=== PATIENT | male | born 1945 | race Caucasian/White ===

== ENCOUNTER 2018-07-12 14:02 | Inpatient (IN) | payer SELFPAY ==
--- NOTE | 2018-07-12 14:15 | C.PDOC ---
History Of Present Illness Patient is a 72 year old male, with a PMHx of HTN, HLD, diabetes, and hemorrhoids, who presents to the ED c/o CP and SOB for over the past 3 weeks. Patient describes the CP as a pressure and states that the SOB is worse with exertion. Pain is not tearing and non-pleuritic. Patient was seen at a previous urgent care for CP and hemorrhoids and his Plavix was discontinued given the hemorrhoids. Patient reports worsening SOB starting today prompting him to call EMS and was given 2 Lasix and 1 sublingual Nitro with mild improvement. He denies taking any Aspirin or Plavix today and was not given Aspirin by EMS. Time Seen by Provider: 07/12/18 14:10 Chief Complaint (Nursing): Shortness Of Breath History Per: Patient History/Exam Limitations: no limitations Onset/Duration Of Symptoms: Other (3 weeks) Current Symptoms Are (Timing): Still Present Quality: Pressure Associated Symptoms: Chest Pain Recent travel outside of the [place]: No Additional History Per: Patient Past Medical History Reviewed: Historical Data, Nursing Documentation, Vital Signs - Medical History PMH: No Chronic Diseases Surgical History: No Surg Hx Family History: States: No Known Family Hx Review Of Systems Constitutional: Negative for: Fever, Chills, Weakness Eyes: Negative for: Pain ENT: Negative for: Ear Pain, Ear Discharge Cardiovascular: Positive for: Chest Pain (chest pressure) Respiratory: Positive for: Shortness of Breath Gastrointestinal: Negative for: Nausea, Vomiting, Abdominal Pain Genitourinary: Negative for: Dysuria, Frequency, Incontinence Musculoskeletal: Negative for: Neck Pain, Shoulder Pain Skin: Negative for: Rash, Lesions, Jaundice Neurological: Negative for: Weakness, Numbness, Headache Physical Exam - Physical Exam Appears: Well, Non-toxic, No Acute Distress Skin: Warm, Dry Head: Normacephalic Eye(s): bilateral: Normal Inspection, PERRL, EOMI Nose: Normal Oral Mucosa: Moist Tongue: Normal Appearing Lips: Normal Appearing Teeth: Normal Dentition Throat: Normal, No Erythema, No Exudate Neck: Normal, Normal ROM (tachy), Trachea Midline, Supple, Other (No meningeal signs- negative kernig's and brudzinskis) Chest: Symmetrical Cardiovascular: Rhythm Regular, No Friction Rub, No Murmur, No JVD Respiratory: No Rales, No Rhonchi, No Wheezing, Other (mild cracles at basis bi laterally) Gastrointestinal/Abdominal: Soft, No Tenderness, No Distention Back: No CVA Tenderness, No Vertebral Tenderness Extremity: Bilateral: Normal Color And Temperature Pulses: Left Dorsalis Pedis: Normal, Right Dorsalis Pedis: Normal Neurological/Psych: Oriented x3, Normal Speech, Normal Cognition ED Course And Treatment - Laboratory Results Result Diagrams: 07/12/18 14:31 07/12/18 14:31 ECG: Interpreted By Me, Viewed By Me ECG Rhythm: Sinus Tachycardia Interpretation Of ECG: ST elevation leads 3 and avf with depressions in 1 and avl Rate From EC Medical Decision Making Medical Decision Making: Patient is a 72 year old male, with a PMHx of HTN, HLD, diabetes, and hemorrhoids, who presents to the ED c/o CP and SOB for over the past 3 weeks. Gianfranco hernandez describes the CP as a pressure and states that the SOB is worse with exertion. Pain is not tearing and non-pleuritic. STEMI on EKG, elevation in III and AvF, code HEART called. Plan: Labs Magnetic Resonance Technologist EKG CXR Aspirin 324mg PO Plavix 600mg PO Appreciate consultation w/ Dr. Abilio Archuleta: 600 of plavix and ASA at this time, no heparin and brilinta and pt to be sent to chemical lab supervisor Patient was transferred to the Magnetic Resonance Technologist in [place]. VSS, MAEW, GCS15 and protecting airway. Disposition - Disposition Disposition Time: 14:40 Condition: STABLE - Clinical Impression Clinical Impression: STEMI (ST elevation myocardial infarction) - Scribe Statement The provider has reviewed the documentation as recorded by the Giovana Velasco All medical record entries made by the Paulinaibhector were at my direction and personally dictated by me. I have reviewed the chart and agree that the record accurately reflects my personal performance of the history, physical exam, medical decision making, and the department course for this patient. I have also personally directed, reviewed, and agree with the discharge instructions and disposition.
[2018-07-12] MEDS ORDERED: Verapamil 2 ML ONE (14:29)
[2018-07-12] MEDS ORDERED: Heparin 0 ML IV ONE (14:30)
[2018-07-12] MEDS ORDERED: Lidocaine 2% MPF (5 ml) Inj ONE (14:30)
[2018-07-12] MEDS ORDERED: Nitroglycerin 50mg in D5W 50 MG/250 ML BOTTLE IV ONE (14:30)
[2018-07-12] MEDS ORDERED: Iodixanol 320 MG/ML 200 ML BOTTLE IV ONE (14:30)
[2018-07-12 14:37] LABS: BASO % 0.3 % (0.0-2.0); EOS # 0.1 K/uL (0.0-0.7); EOS % 0.6 % (0.0-4.0); LYMPH # 1.4 K/uL (1.0-4.3); LYMPH % 8.9 % (20.0-40.0); MEAN CELL VOLUME 66.8 fL (80.0-94.0); MEAN CORPUSCULAR HEMOGLOBIN 19.8 pg (27.0-31.0); MEAN CORPUSCULAR HGB CONC 29.7 g/dL (33.0-37.0); MEAN PLATELET VOLUME 7.9 fL (7.2-11.7); MONO # 0.7 K/uL (0.0-0.8); MONO % 4.3 % (0.0-10.0); NEUT # 13.6 K/uL (1.8-7.0); NEUT % 85.9 % (50.0-75.0); PLATELET COUNT 469 K/uL (130-400); RBC 4.37 Mil/uL (4.40-5.90); RED CELL DISTRIBUTION WIDTH 21.2 % (11.5-14.5); WHITE BLOOD COUNT 15.8 K/uL (4.8-10.8)
[2018-07-12 14:45] LABS: HEMOGLOBIN 8.7 g/dL (12.0-18.0)
[2018-07-12 14:46] LABS: INR 1.1; PARTIAL THROMBOPLASTIN TIME 28.6 SECONDS (21-34); PROTHROMBIN TIME 12.4 SECONDS (9.7-12.2)
[2018-07-12] MEDS ORDERED: Midazolam 2 MG/2 ML VIAL ONE ×2 (14:47→15:08)
[2018-07-12 14:50] LABS: ALB/GLOB RATIO 1.6 (1.0-2.1); ALBUMIN 4.7 g/dL (3.5-5.0); ALT/SGPT 15 U/L (21-72); AST/SGOT 26 U/L (17-59); BLOOD UREA NITROGEN 21 mg/dL (9-20); GFR NON-AFRICAN AMERICAN > 60
[2018-07-12] MEDS ORDERED: Iodixanol 320 MG/ML 100 ML BOTTLE IV ONE ×2 (15:09→16:15)
--- NOTE | 2018-07-12 15:18 | RAD ---
Date of service: 07/12/2018 PROCEDURE: CHEST RADIOGRAPH, 1 VIEW HISTORY: chest pain COMPARISON: None available. FINDINGS: LUNGS: The lungs are well inflated and clear. PLEURA: No pneumothorax or pleural effusion. CARDIOVASCULAR: There is mild cardiomegaly. No aortic atherosclerotic calcifications present. OSSEOUS STRUCTURES: Within normal limits for the patient's age. VISUALIZED UPPER ABDOMEN: Normal. OTHER FINDINGS: None. IMPRESSION: No active pulmonary disease.
[2018-07-12 15:31] LABS: LYMPHOCYTE 12 % (20-40); MONOCYTE 4 % (0-10); NEUTROPHIL 84 % (50-75); PLATELET ESTIMATE SLIGHTLY INCREASED (NORMAL); TOTAL CELLS COUNTED 100
[2018-07-12 15:32] LABS: ANISOCYTOSIS SLIGHT; BURR CELLS SLIGHT; HYPOCHROMIC SLIGHT; POIKILOCYTOSIS SLIGHT
[2018-07-12 15:33] LABS: OVALOCYTES SLIGHT; TARGET CELLS SLIGHT
--- NOTE | 2018-07-12 15:54 | CP.PCM.HP ---
<Bhavya Rivas - Last Filed: 07/12/18 18:53> History of Present Illness - History of Present Illness History of Present Illness: Bhavya Rivas PGY1 H&P for Dr. Pleitez Patient is a 72yo M with PMH HTN, HLD, DM, hemorrhoids who presents to ED with chest pain and shortness of breath. He reports symptoms began a couple of weeks ago, however worsened this morning. He rated the pain 8/10 on the left side of his chest. He denied radiation of the pain to the neck, arm, or R side. He de nied any nausea, but reported some sweating this morning. He denied any blurry vision or syncope. He reports taking his BP medicine at home this morning but has not taken his plavix for a few days due to hemorrhoids. Patient reports prior history of this pain a few years ago. SocH: tobacco history. denies etoh or recreational drug use FamH: no known Allergies: NKDA Meds: as per EMR PMD: Ward in [place] Present on Admission - Present on Admission Any Indicators Present on Admission: No Review of Systems - Review of Systems Review of Systems: 12 point ROS completed and negative other than what is stated in HPI. Past Patient History - Infectious Disease Hx of Infectious Diseases: None - Past Social History Smoking Status: Never Smoked - CARDIAC Hx Hypercholesterolemia: Yes Hx Hypertension: Yes - PULMONARY Hx Bronchitis: Yes - ENDOCRINE/METABOLIC Hx Diabetes Mellitus Type 2: Yes - MUSCULOSKELETAL/RHEUMATOLOGICAL Other/Comment: Spondylosis - PSYCHIATRIC Hx Substance Use: No - SURGICAL HISTORY Hx Surgeries: No - ANESTHESIA Hx Anesthesia: No Meds Allergies/Adverse Reactions: Allergies Allergy/AdvReac Type Severity Reaction Status Date / Time No Known Allergies Allergy Unverified 07/12/18 14:14 Physical Exam - Constitutional Appears: Well, No Acute Distress - Head Exam Head Exam: ATRAUMATIC, NORMOCEPHALIC - Eye Exam Eye Exam: EOMI, Normal appearance, PERRL Pupil Exam: NORMAL ACCOMODATION - ENT Exam ENT Exam: Mucous Membranes Moist - Neck Exam Neck exam: Positive for: Normal Inspection - Respiratory Exam Respiratory Exam: Clear to Auscultation Bilateral, NORMAL BREATHING PATTERN. absent: Rales, Rhonchi, Wheezes - Cardiovascular Exam Cardiovascular Exam: REGULAR RHYTHM, +S1. absent: Gallop, Rubs, Systolic Murmur - GI/Abdominal Exam GI & Abdominal Exam: Normal Bowel Sounds, Soft. absent: Distended, Tenderness - Extremities Exam Extremities exam: Positive for: pedal edema, pedal pulses present - Neurological Exam Neurological exam: Alert, CN II-XII Intact, Normal Gait, Oriented x3, Reflexes Normal - Psychiatric Exam Psychiatric exam: Normal Affect, Normal Mood - Skin Skin Exam: Intact, Normal Color, Warm Results - Vital Signs Recent Vital Signs: Last Vital Signs Temp 97.8 F 07/12/18 14:21 Pulse 109 H 07/12/18 14:21 Resp 21 07/12/18 14:28 BP 134/78 07/12/18 14:21 Pulse Ox 100 07/12/18 14:28 - Labs Result Diagrams: 07/12/18 14:31 07/12/18 14:31 Labs: Laboratory Results - last 24 hr 07/12/18 07/12/18 07/12/18 14:25 14:31 14:31 WBC 15.8 H RBC 4.37 L Hgb 8.7 L Hct 29.2 L MCV 66.8 L MCH 19.8 L MCHC 29.7 L RDW 21.2 H Plt Count 469 H MPV 7.9 Neut % (Auto) 85.9 H Lymph % (Auto) 8.9 L [place] % (Auto) 4.3 Eos % (Auto) 0.6 Baso % (Auto) 0.3 Neut # (Auto) 13.6 H Lymph # (Auto) 1.4 [place] # (Auto) 0.7 Eos # (Auto) 0.1 Baso # (Auto) 0.0 Neutrophils % (Manual) 84 H Lymphocytes % (Manual) 12 L Monocytes % (Manual) 4 Platelet Estimate Slightly increased H Hypochromasia (manual) Slight Poikilocytosis (manual Slight Anisocytosis (manual) Slight Target Cells Slight Ovalocytes Slight [place] Cells Slight PT 12.4 H INR 1.1 APTT 28.6 Sodium Potassium Chloride Carbon Dioxide Anion Gap BUN Creatinine Est GFR ( Amer) Est GFR (Non-Af Amer) POC Glucose (mg/dL) 307 H Random Glucose Calcium Total Bilirubin AST ALT Alkaline Phosphatase Troponin I Total Protein Albumin Globulin Albumin/Globulin Ratio Blood Type Antibody Screen 07/12/18 07/12/18 14:31 14:31 WBC RBC Hgb Hct MCV MCH MCHC RDW Plt Count MPV Neut % (Auto) Lymph % (Auto) [place] % (Auto) Eos % (Auto) Baso % (Auto) Neut # (Auto) Lymph # (Auto) [place] # (Auto) Eos # (Auto) Baso # (Auto) Neutrophils % (Manual) Lymphocytes % (Manual) Monocytes % (Manual) Platelet Estimate Hypochromasia (manual) Poikilocytosis (manual Anisocytosis (manual) Target Cells Ovalocytes [place] Cells PT INR APTT Sodium 140 Potassium 5.2 Chloride 97 L Carbon Dioxide 23 Anion Gap 25 H BUN 21 H Creatinine 1.0 Est GFR ( Amer) > 60 Est GFR (Non-Af Amer) > 60 POC Glucose (mg/dL) Random Glucose 289 H Calcium 9.0 Total Bilirubin 0.9 AST 26 ALT 15 L Alkaline Phosphatase 91 Troponin I 0.1480 H* Total Protein 7.7 Albumin 4.7 Globulin 3.0 Albumin/Globulin Ratio 1.6 Blood Type O POSITIVE Antibody Screen Negative Assessment & Plan - Assessment and Plan (Free Text) Assessment: Patient is a 72yo M with PMH HTN, HLD, DM, hemorrhoids who presents to ED with chest pain and shortness of breath. EKG showing STEMI. Code-heart. Admitted to ICU. Plan: Neuro: - AAOx3 - GSC 15 - no focal deficits Cardiovascular: - STEMI - CODE HEART - s/p cath, found to have 60% stenosis of distal LAD, 70% stenosis of proximal LAD, RCA not visualized - for rpt cath tomorrow at [place] - nitro drip - ASA and plavix given in ED Pulm: - CXR: no active disease - maintain SpO2 >92% GI: - no active issues Heme: - given ASA and plavix in ED - for rpt cath tomorrow at [place] Renal: - no active disease Endo: - h/o DM - sliding scale medium dose - hypoglycemic protocol - accuchecks ACHS - maintain euglycemia PPX: GI: no indicated at this time DVT: hold for cath tomorrow NPO past MN Dispo: for cardiac cath at [place] tomorrow. Case reviewed with Dr. Pleitez <James Pleitez - Last Filed: 07/13/18 07:16> Results - Vital Signs Recent Vital Signs: Last Vital Signs Temp 97.9 F 05/28/19 19:30 Pulse 66 07/13/18 04:10 Resp 16 07/13/18 04:10 BP 106/56 L 07/13/18 04:09 Pulse Ox 100 07/13/18 04:10 - Labs Result Diagrams: 07/13/18 06:16 07/13/18 06:16 Labs: Laboratory Results - last 24 hr 07/12/18 07/12/18 07/12/18 14:25 14:31 14:31 WBC 15.8 H RBC 4.37 L Hgb 8.7 L Hct 29.2 L MCV 66.8 L MCH 19.8 L MCHC 29.7 L RDW 21.2 H Plt Count 469 H MPV 7.9 Neut % (Auto) 85.9 H Lymph % (Auto) 8.9 L [place] % (Auto) 4.3 Eos % (Auto) 0.6 Baso % (Auto) 0.3 Neut # (Auto) 13.6 H Lymph # (Auto) 1.4 [place] # (Auto) 0.7 Eos # (Auto) 0.1 Baso # (Auto) 0.0 Neutrophils % (Manual) 84 H Lymphocytes % (Manual) 12 L Monocytes % (Manual) 4 Platelet Estimate Slightly increased H Hypochromasia (manual) Slight Poikilocytosis (manual Slight Anisocytosis (manual) Slight Target Cells Slight Ovalocytes Slight [place] Cells Slight PT 12.4 H INR 1.1 APTT 28.6 Sodium Potassium Chloride Carbon Dioxide Anion Gap BUN Creatinine Est GFR ( Amer) Est GFR (Non-Af Amer) POC Glucose (mg/dL) 307 H Random Glucose Calcium Phosphorus Magnesium Iron TIBC % Saturation Total Bilirubin AST ALT Alkaline Phosphatase Troponin I Total Protein Albumin Globulin Albumin/Globulin Ratio Blood Type Antibody Screen 07/12/18 07/12/18 07/13/18 14:31 14:31 00:45 WBC RBC Hgb Hct MCV MCH MCHC RDW Plt Count MPV Neut % (Auto) Lymph % (Auto) [place] % (Auto) Eos % (Auto) Baso % (Auto) Neut # (Auto) Lymph # (Auto) [place] # (Auto) Eos # (Auto) Baso # (Auto) Neutrophils % (Manual) Lymphocytes % (Manual) Monocytes % (Manual) Platelet Estimate Hypochromasia (manual) Poikilocytosis (manual Anisocytosis (manual) Target Cells Ovalocytes [place] Cells PT INR APTT Sodium 140 Potassium 5.2 Chloride 97 L Carbon Dioxide 23 Anion Gap 25 H BUN 21 H Creatinine 1.0 Est GFR ( Amer) > 60 Est GFR (Non-Af Amer) > 60 POC Glucose (mg/dL) Random Glucose 289 H Calcium 9.0 Phosphorus Magnesium Iron 23 L TIBC 416 % Saturation 6 L Total Bilirubin 0.9 AST 26 ALT 15 L Alkaline Phosphatase 91 Troponin I 0.1480 H* Total Protein 7.7 Albumin 4.7 Globulin 3.0 Albumin/Globulin Ratio 1.6 Blood Type O POSITIVE Antibody Screen Negative 07/13/18 07/13/18 07/13/18 00:45 00:45 00:45 WBC 11.0 H RBC 3.86 L Hgb 7.6 L Hct 25.2 L MCV 65.3 L MCH 19.8 L MCHC 30.3 L RDW 20.5 H Plt Count 384 MPV 8.8 Neut % (Auto) 79.5 H Lymph % (Auto) 12.7 L [place] % (Auto) 7.0 Eos % (Auto) 0.5 Baso % (Auto) 0.3 Neut # (Auto) 8.7 H Lymph # (Auto) 1.4 [place] # (Auto) 0.8 Eos # (Auto) 0.1 Baso # (Auto) 0.0 Neutrophils % (Manual) Lymphocytes % (Manual) Monocytes % (Manual) Platelet Estimate Hypochromasia (manual) Poikilocytosis (manual Anisocytosis (manual) Target Cells Ovalocytes [place] Cells PT 12.6 H INR 1.2 APTT 29.0 Sodium 137 Potassium 3.9 Chloride 98 Carbon Dioxide 29 Anion Gap 13 BUN 18 Creatinine 0.8 Est GFR ( Amer) > 60 Est GFR (Non-Af Amer) > 60 POC Glucose (mg/dL) Random Glucose 141 H D Calcium 8.6 Phosphorus 3.7 Magnesium 1.9 Iron TIBC % Saturation Total Bilirubin 0.8 AST 193 H D ALT 32 Alkaline Phosphatase 71 Troponin I 41.4000 H* Total Protein 6.8 Albumin 4.1 Globulin 2.7 Albumin/Globulin Ratio 1.5 Blood Type Antibody Screen 07/13/18 07/13/18 07/13/18 06:16 06:16 06:16 WBC 10.6 RBC 3.88 L Hgb 7.8 L Hct 25.7 L MCV 66.2 L MCH 20.0 L MCHC 30.2 L RDW 20.6 H Plt Count 361 MPV 7.8 Neut % (Auto) 79.1 H Lymph % (Auto) 10.7 L [place] % (Auto) 7.7 Eos % (Auto) 1.9 Baso % (Auto) 0.6 Neut # (Auto) 8.4 H Lymph # (Auto) 1.1 [place] # (Auto) 0.8 Eos # (Auto) 0.2 Baso # (Auto) 0.1 Neutrophils % (Manual) Lymphocytes % (Manual) Monocytes % (Manual) Platelet Estimate Hypochromasia (manual) Poikilocytosis (manual Anisocytosis (manual) Target Cells Ovalocytes [place] Cells PT INR APTT 50.7 H D Sodium 137 Potassium 4.0 Chloride 102 Carbon Dioxide 31 H Anion Gap 8 L BUN 17 Creatinine 0.8 Est GFR ( Amer) > 60 Est GFR (Non-Af Amer) > 60 POC Glucose (mg/dL) Random Glucose 97 D Calcium 8.4 L Phosphorus 3.4 Magnesium 1.8 Iron TIBC % Saturation Total Bilirubin 0.9 AST 213 H ALT 39 Alkaline Phosphatase 68 Troponin I Total Protein 6.7 Albumin 3.8 Globulin 2.9 Albumin/Globulin Ratio 1.3 Blood Type Antibody Screen 07/13/18 06:16 WBC RBC Hgb Hct MCV MCH MCHC RDW Plt Count MPV Neut % (Auto) Lymph % (Auto) [place] % (Auto) Eos % (Auto) Baso % (Auto) Neut # (Auto) Lymph # (Auto) [place] # (Auto) Eos # (Auto) Baso # (Auto) Neutrophils % (Manual) Lymphocytes % (Manual) Monocytes % (Manual) Platelet Estimate Hypochromasia (manual) Poikilocytosis (manual Anisocytosis (manual) Target Cells Ovalocytes [place] Cells PT INR APTT Sodium Potassium Chloride Carbon Dioxide Anion Gap BUN Creatinine Est GFR ( Amer) Est GFR (Non-Af Amer) POC Glucose (mg/dL) Random Glucose Calcium Phosphorus Magnesium Iron TIBC % Saturation Total Bilirubin AST ALT Alkaline Phosphatase Troponin I 43.1000 H* Total Protein Albumin Globulin Albumin/Globulin Ratio Blood Type Antibody Screen Attending/Attestation - Attestation I have personally seen and examined this patient.: Yes I have fully participated in the care of the patient.: Yes I have reviewed all pertinent clinical information: Yes Notes (Text): 07/13/18 07:14 Medical attending: Patient was seen and examined by me. Agree with the above note by the resident The patient was found to have 60% stenosis of distal LAD, 70% stenosis of proximal LAD, RCA not visualized and from what I understand there are plans to move to [facility] for further interventions. James Pleitez
--- NOTE | 2018-07-12 16:00 | CP.CCUPN ---
CCU Subjective - Physician Review Subjective (Free Text): 07/12/18 16:00 Bhavya Rivas PGY1 H&P for Dr. Pleitez Patient is a 72yo M with PMH HTN, HLD, DM, hemorrhoids who presents to ED with chest pain and shortness of breath. He reports symptoms began SxH: SocH: FamH: Allergies: NKDA Meds: as per EMR PMD: CCU Objective - Vital Signs / Intake & Output Vital Signs (Last 4 hours): Vital Signs Temp Pulse Resp BP Pulse Ox 07/12/18 14:28 21 100 07/12/18 14:21 97.8 F 109 H 28 H 134/78 96 Intake and Output (Last 8hrs): Intake & Output 07/12/18 07/12/18 07/12/18 06:59 14:59 22:59 Weight 73 kg - Patient Studies Lab Studies: Lab Studies 07/12/18 07/12/18 07/12/18 Range/Units 14:31 14:31 14:31 WBC (4.8-10.8) K/uL RBC (4.40-5.90) Mil/uL Hgb (12.0-18.0) g/dL Hct (35.0-51.0) % MCV (80.0-94.0) fL MCH (27.0-31.0) pg MCHC (33.0-37.0) g/dL RDW (11.5-14.5) % Plt Count (130-400) K/uL MPV (7.2-11.7) fL Neut % (Auto) (50.0-75.0) % Lymph % (Auto) (20.0-40.0) % [place] % (Auto) (0.0-10.0) % Eos % (Auto) (0.0-4.0) % Baso % (Auto) (0.0-2.0) % Neut # (Auto) (1.8-7.0) K/uL Lymph # (Auto) (1.0-4.3) K/uL [place] # (Auto) (0.0-0.8) K/uL Eos # (Auto) (0.0-0.7) K/uL Baso # (Auto) (0.0-0.2) K/uL Neutrophils % (Manual) (50-75) % Lymphocytes % (Manual) (20-40) % Monocytes % (Manual) (0-10) % Platelet Estimate (NORMAL) Hypochromasia (manual) Poikilocytosis (manual Anisocytosis (manual) Target Cells Ovalocytes [place] Cells PT 12.4 H (9.7-12.2) SECONDS INR 1.1 APTT 28.6 (21-34) SECONDS Sodium 140 (132-148) mmol/L Potassium 5.2 (3.6-5.2) mmol/L Chloride 97 L (98-107) mmol/L Carbon Dioxide 23 (22-30) mmol/L Anion Gap 25 H (10-20) BUN 21 H (9-20) mg/dL Creatinine 1.0 (0.8-1.5) mg/dL Est GFR ( Amer) > 60 Est GFR (Non-Af Amer) > 60 POC Glucose (mg/dL) (65-110) mg/dL Random Glucose 289 H (75-110) mg/dL Calcium 9.0 (8.6-10.4) mg/dl Total Bilirubin 0.9 (0.2-1.3) mg/dL AST 26 (17-59) U/L ALT 15 L (21-72) U/L Alkaline Phosphatase 91 (38-126) U/L Troponin I 0.1480 H* (0.00-0.120) ng/mL Total Protein 7.7 (6.3-8.3) g/dL Albumin 4.7 (3.5-5.0) g/dL Globulin 3.0 (2.2-3.9) gm/dL Albumin/Globulin Ratio 1.6 (1.0-2.1) Blood Type O POSITIVE Antibody Screen Negative 07/12/18 07/12/18 Range/Units 14:31 14:25 WBC 15.8 H (4.8-10.8) K/uL RBC 4.37 L (4.40-5.90) Mil/uL Hgb 8.7 L (12.0-18.0) g/dL Hct 29.2 L (35.0-51.0) % MCV 66.8 L (80.0-94.0) fL MCH 19.8 L (27.0-31.0) pg MCHC 29.7 L (33.0-37.0) g/dL RDW 21.2 H (11.5-14.5) % Plt Count 469 H (130-400) K/uL MPV 7.9 (7.2-11.7) fL Neut % (Auto) 85.9 H (50.0-75.0) % Lymph % (Auto) 8.9 L (20.0-40.0) % [place] % (Auto) 4.3 (0.0-10.0) % Eos % (Auto) 0.6 (0.0-4.0) % Baso % (Auto) 0.3 (0.0-2.0) % Neut # (Auto) 13.6 H (1.8-7.0) K/uL Lymph # (Auto) 1.4 (1.0-4.3) K/uL [place] # (Auto) 0.7 (0.0-0.8) K/uL Eos # (Auto) 0.1 (0.0-0.7) K/uL Baso # (Auto) 0.0 (0.0-0.2) K/uL Neutrophils % (Manual) 84 H (50-75) % Lymphocytes % (Manual) 12 L (20-40) % Monocytes % (Manual) 4 (0-10) % Platelet Estimate Slightly increased H (NORMAL) Hypochromasia (manual) Slight Poikilocytosis (manual Slight Anisocytosis (manual) Slight Target Cells Slight Ovalocytes Slight [place] Cells Slight PT (9.7-12.2) SECONDS INR APTT (21-34) SECONDS Sodium (132-148) mmol/L Potassium (3.6-5.2) mmol/L Chloride (98-107) mmol/L Carbon Dioxide (22-30) mmol/L Anion Gap (10-20) BUN (9-20) mg/dL Creatinine (0.8-1.5) mg/dL Est GFR ( Amer) Est GFR (Non-Af Amer) POC Glucose (mg/dL) 307 H (65-110) mg/dL Random Glucose (75-110) mg/dL Calcium (8.6-10.4) mg/dl Total Bilirubin (0.2-1.3) mg/dL AST (17-59) U/L ALT (21-72) U/L Alkaline Phosphatase (38-126) U/L Troponin I (0.00-0.120) ng/mL Total Protein (6.3-8.3) g/dL Albumin (3.5-5.0) g/dL Globulin (2.2-3.9) gm/dL Albumin/Globulin Ratio (1.0-2.1) Blood Type Antibody Screen Laboratory Results - last 24 hr 07/12/18 07/12/18 07/12/18 14:25 14:31 14:31 WBC 15.8 H RBC 4.37 L Hgb 8.7 L Hct 29.2 L MCV 66.8 L MCH 19.8 L MCHC 29.7 L RDW 21.2 H Plt Count 469 H MPV 7.9 Neut % (Auto) 85.9 H Lymph % (Auto) 8.9 L [place] % (Auto) 4.3 Eos % (Auto) 0.6 Baso % (Auto) 0.3 Neut # (Auto) 13.6 H Lymph # (Auto) 1.4 [place] # (Auto) 0.7 Eos # (Auto) 0.1 Baso # (Auto) 0.0 Neutrophils % (Manual) 84 H Lymphocytes % (Manual) 12 L Monocytes % (Manual) 4 Platelet Estimate Slightly increased H Hypochromasia (manual) Slight Poikilocytosis (manual Slight Anisocytosis (manual) Slight Target Cells Slight Ovalocytes Slight [place] Cells Slight PT 12.4 H INR 1.1 APTT 28.6 Sodium Potassium Chloride Carbon Dioxide Anion Gap BUN Creatinine Est GFR ( Amer) Est GFR (Non-Af Amer) POC Glucose (mg/dL) 307 H Random Glucose Calcium Total Bilirubin AST ALT Alkaline Phosphatase Troponin I Total Protein Albumin Globulin Albumin/Globulin Ratio Blood Type Antibody Screen 07/12/18 07/12/18 14:31 14:31 WBC RBC Hgb Hct MCV MCH MCHC RDW Plt Count MPV Neut % (Auto) Lymph % (Auto) [place] % (Auto) Eos % (Auto) Baso % (Auto) Neut # (Auto) Lymph # (Auto) [place] # (Auto) Eos # (Auto) Baso # (Auto) Neutrophils % (Manual) Lymphocytes % (Manual) Monocytes % (Manual) Platelet Estimate Hypochromasia (manual) Poikilocytosis (manual Anisocytosis (manual) Target Cells Ovalocytes [place] Cells PT INR APTT Sodium 140 Potassium 5.2 Chloride 97 L Carbon Dioxide 23 Anion Gap 25 H BUN 21 H Creatinine 1.0 Est GFR ( Amer) > 60 Est GFR (Non-Af Amer) > 60 POC Glucose (mg/dL) Random Glucose 289 H Calcium 9.0 Total Bilirubin 0.9 AST 26 ALT 15 L Alkaline Phosphatase 91 Troponin I 0.1480 H* Total Protein 7.7 Albumin 4.7 Globulin 3.0 Albumin/Globulin Ratio 1.6 Blood Type O POSITIVE Antibody Screen Negative Radiology Impressions: Radiology Impressions Chest X-Ray 07/12/18 14:20 IMPRESSION: No active pulmonary disease. EKG/Cardiology Studies: Cardiology / EKG Studies 07/12/18 14:20 ELECTROCARDIOGRAM Stat Comment: Mode Of Transportation: BED Reason For Exam: chest pain Fingerstick Blood Sugar Results: 307
--- NOTE | 2018-07-12 16:00 | CP.PCM.CON ---
<Bhavya Rivas - Last Filed: 07/12/18 18:55> History of Present Illness - History of Present Illness History of Present Illness: Bhavya Rivas PGY1 Consult note for Dr. Moncada Patient is a 72yo M with PMH HTN, HLD, DM, hemorrhoids who presents to ED with chest pain and shortness of breath. He reports symptoms began a couple of weeks ago, however worsened this morning. He rated the pain 8/10 on the left side of his chest. He denied radiation of the pain to the neck, arm, or R side. He denied any nausea, but reported some sweating this morning. He denied any blurry vision or syncope. He reports taking his BP medicine at home this morning but has not taken his plavix for a few days due to hemorrhoids. Patient reports prior history of this pain a few years ago. SocH: tobacco history. denies etoh or recreational drug use FamH: no known Allergies: NKDA Meds: as per EMR PMD: Ward in [place] Review of Systems - Review of Systems Review of Systems: 12 point ROS performed and negative other than what is stated in HPI Past Patient History - Infectious Disease Hx of Infectious Diseases: None - Past Social History Smoking Status: Never Smoked - CARDIAC Hx Hypercholesterolemia: Yes Hx Hypertension: Yes - PULMONARY Hx Bronchitis: Yes - ENDOCRINE/METABOLIC Hx Diabetes Mellitus Type 2: Yes - MUSCULOSKELETAL/RHEUMATOLOGICAL Other/Comment: Spondylosis - PSYCHIATRIC Hx Substance Use: No - SURGICAL HISTORY Hx Surgeries: No - ANESTHESIA Hx Anesthesia: No Meds Allergies/Adverse Reactions: Allergies Allergy/AdvReac Type Severity Reaction Status Date / Time No Known Allergies Allergy Unverified 07/12/18 14:14 Physical Exam - Constitutional Appears: Well, No Acute Distress - Head Exam Head Exam: ATRAUMATIC, NORMOCEPHALIC - Eye Exam Eye Exam: EOMI, Normal appearance, PERRL Pupil Exam: NORMAL ACCOMODATION - ENT Exam ENT Exam: Mucous Membranes Moist, Normal Exam - Neck Exam Neck exam: Positive for: Normal Inspection - Respiratory Exam Respiratory Exam: Clear to Auscultation Bilateral, NORMAL BREATHING PATTERN. absent: Rales, Rhonchi, Wheezes - Cardiovascular Exam Cardiovascular Exam: REGULAR RHYTHM, +S1, +S2. absent: Gallop, Rubs, Systolic Murmur - GI/Abdominal Exam GI & Abdominal Exam: Normal Bowel Sounds, Soft. absent: Tenderness - Extremities Exam Extremities exam: Positive for: normal inspection, pedal edema, pedal pulses present - Neurological Exam Neurological exam: Alert, CN II-XII Intact, Oriented x3 - Psychiatric Exam Psychiatric exam: Normal Affect, Normal Mood - Skin Skin Exam: Intact, Normal Color, Warm Results - Vital Signs Recent Vital Signs: Last Vital Signs Temp 97.8 F 07/12/18 14:21 Pulse 109 H 07/12/18 14:21 Resp 21 07/12/18 14:28 BP 134/78 07/12/18 14:21 Pulse Ox 100 07/12/18 14:28 - Labs Result Diagrams: 07/12/18 14:31 07/12/18 14:31 Labs: Laboratory Results - last 24 hr 07/12/18 07/12/18 07/12/18 14:25 14:31 14:31 WBC 15.8 H RBC 4.37 L Hgb 8.7 L Hct 29.2 L MCV 66.8 L MCH 19.8 L MCHC 29.7 L RDW 21.2 H Plt Count 469 H MPV 7.9 Neut % (Auto) 85.9 H Lymph % (Auto) 8.9 L [place] % (Auto) 4.3 Eos % (Auto) 0.6 Baso % (Auto) 0.3 Neut # (Auto) 13.6 H Lymph # (Auto) 1.4 [place] # (Auto) 0.7 Eos # (Auto) 0.1 Baso # (Auto) 0.0 Neutrophils % (Manual) 84 H Lymphocytes % (Manual) 12 L Monocytes % (Manual) 4 Platelet Estimate Slightly increased H Hypochromasia (manual) Slight Poikilocytosis (manual Slight Anisocytosis (manual) Slight Target Cells Slight Ovalocytes Slight Merritt Cells Slight PT 12.4 H INR 1.1 APTT 28.6 Sodium Potassium Chloride Carbon Dioxide Anion Gap BUN Creatinine Est GFR ( Amer) Est GFR (Non-Af Amer) POC Glucose (mg/dL) 307 H Random Glucose Calcium Total Bilirubin AST ALT Alkaline Phosphatase Troponin I Total Protein Albumin Globulin Albumin/Globulin Ratio Blood Type Antibody Screen 07/12/18 07/12/18 14:31 14:31 WBC RBC Hgb Hct MCV MCH MCHC RDW Plt Count MPV Neut % (Auto) Lymph % (Auto) [place] % (Auto) Eos % (Auto) Baso % (Auto) Neut # (Auto) Lymph # (Auto) [place] # (Auto) Eos # (Auto) Baso # (Auto) Neutrophils % (Manual) Lymphocytes % (Manual) Monocytes % (Manual) Platelet Estimate Hypochromasia (manual) Poikilocytosis (manual Anisocytosis (manual) Target Cells Ovalocytes Merritt Cells PT INR APTT Sodium 140 Potassium 5.2 Chloride 97 L Carbon Dioxide 23 Anion Gap 25 H BUN 21 H Creatinine 1.0 Est GFR ( Amer) > 60 Est GFR (Non-Af Amer) > 60 POC Glucose (mg/dL) Random Glucose 289 H Calcium 9.0 Total Bilirubin 0.9 AST 26 ALT 15 L Alkaline Phosphatase 91 Troponin I 0.1480 H* Total Protein 7.7 Albumin 4.7 Globulin 3.0 Albumin/Globulin Ratio 1.6 Blood Type O POSITIVE Antibody Screen Negative Assessment & Plan - Assessment and Plan (Free Text) Assessment: Patient is a 72yo M with PMH HTN, HLD, DM, hemorrhoids who presents to ED with chest pain and shortness of breath. EKG showing STEMI. Code-heart. Admitted to ICU Plan: Neuro: - AAOx3 - GSC 15 - no focal deficits Cardiovascular: - STEMI - CODE HEART - s/p cath, found to have 60% stenosis of distal LAD, 70% stenosis of proximal LAD, RCA not visualized - for rpt cath tomorrow at [facility] - nitro drip - ASA and plavix given in ED Pulm: - CXR: no active disease - maintain SpO2 >92% GI: - no active issues Heme: - given ASA and plavix in ED - for rpt cath tomorrow at [facility] Renal: - no active disease Endo: - h/o DM - sliding scale medium dose - hypoglycemic protocol - accuchecks ACHS - maintain euglycemia PPX: GI: no indicated at this time DVT: hold for cath tomorrow NPO past MN Dispo: for cardiac cath at [facility] tomorrow. Case reviewed with Dr. Moncada <Drew Moncada - Last Filed: 07/13/18 17:29> Meds - Medications Medications: Current Medications Acetaminophen (Tylenol 325mg Tab) 650 mg PO Q6 PRN PRN Reason: pain Last Admin: 07/13/18 00:22 Dose: 650 mg Aspirin (Aspirin Chewable) 81 mg PO DAILY BASIM Last Admin: 07/13/18 11:01 Dose: 81 mg Dextrose (Dextrose 50% Inj) 0 ml IV STAT PRN; Protocol PRN Reason: Hypoglycemia Protocol Dextrose (Glutose 15) 0 gm PO ONCE PRN; Protocol PRN Reason: Hypoglycemia Protocol Glucagon (Glucagen Diagnostic Kit) 0 mg IM STAT PRN; Protocol PRN Reason: Hypoglycemia Protocol Dextrose (Dextrose 5% In Water 1000 Ml) 1,000 mls @ 0 mls/hr IV .Q0M PRN; Protocol PRN Reason: Hypoglycemia Protocol Nitroglycerin/Dextrose (Nitroglycerin 50 Mg/250 Ml D5w) 50 mg in 250 mls @ 7.5 mls/hr IV .Q24H BASIM; Protocol Last Titration: 07/13/18 11:20 Dose: 10 mcg/min, 3 mls/hr Sodium Chloride (Sodium Chloride 0.9%) 1,000 mls @ 100 mls/hr IV .Q10H BASIM Last Admin: 07/13/18 03:29 Dose: 100 mls/hr Heparin Sodium/Sodium Chloride (Heparin 71730 Units/250ml 1/2 Normal Saline) 25,000 units in 250 mls @ 8.916 mls/hr IV .Q24H PRN; Protocol PRN Reason: ADJUST RATE PER PROTOCOL Last Admin: 07/13/18 01:33 Dose: 12 units/kg/hr, 8.916 mls/hr Insulin Human Regular (Novolin R) 0 unit SC ACHS BASIM; Protocol Last Admin: 07/13/18 11:41 Dose: Not Given Metoprolol Tartrate (Lopressor) 25 mg PO BID BASIM Last Admin: 07/13/18 10:16 Dose: 25 mg Rosuvastatin Calcium (Crestor) 10 mg PO HS [facility] Results - Vital Signs Recent Vital Signs: Last Vital Signs Temp 98.1 F 07/13/18 14:00 Pulse 83 07/13/18 14:00 Resp 17 07/13/18 14:00 BP 120/71 07/13/18 14:00 Pulse Ox 100 07/13/18 13:40 - Labs Result Diagrams: 07/13/18 06:16 07/13/18 06:16 Labs: Laboratory Results - last 24 hr 07/12/18 07/13/18 07/13/18 14:31 00:45 00:45 WBC 11.0 H RBC 3.86 L Hgb 7.6 L Hct 25.2 L MCV 65.3 L MCH 19.8 L MCHC 30.3 L RDW 20.5 H Plt Count 384 MPV 8.8 Neut % (Auto) 79.5 H Lymph % (Auto) 12.7 L [place] % (Auto) 7.0 Eos % (Auto) 0.5 Baso % (Auto) 0.3 Neut # (Auto) 8.7 H Lymph # (Auto) 1.4 [place] # (Auto) 0.8 Eos # (Auto) 0.1 Baso # (Auto) 0.0 PT INR APTT Puncture Site pCO2 pO2 HCO3 ABG pH ABG Total CO2 ABG O2 Saturation ABG Base Excess ABG Hemoglobin ABG Carboxyhemoglobin POC ABG HHb (Measured) ABG Methemoglobin Rinku Test VBG pH VBG pCO2 VBG HCO3 VBG Total CO2 VBG O2 Sat (Calc) VBG Base Excess VBG Potassium A-a O2 Difference Respiratory Index Hgb O2 Saturation Glucose Lactate Vent Mode FiO2 Inspiratory BiPAP Expiratory BiPAP Crit Value Called To Crit Value Called By Crit Value Read Back Blood Gas Notified Time Sodium Potassium Chloride Carbon Dioxide Anion Gap BUN Creatinine Est GFR ( Amer) Est GFR (Non-Af Amer) Random Glucose Hemoglobin A1c Calcium Phosphorus Magnesium Iron 23 L TIBC 416 % Saturation 6 L Total Bilirubin AST ALT Alkaline Phosphatase Troponin I Total Protein Albumin Globulin Albumin/Globulin Ratio Venous Blood Potassium Blood Type O POSITIVE Antibody Screen Negative 07/13/18 07/13/18 07/13/18 00:45 00:45 00:45 WBC RBC Hgb Hct MCV MCH MCHC RDW Plt Count MPV Neut % (Auto) Lymph % (Auto) [place] % (Auto) Eos % (Auto) Baso % (Auto) Neut # (Auto) Lymph # (Auto) [place] # (Auto) Eos # (Auto) Baso # (Auto) PT 12.6 H INR 1.2 APTT 29.0 Puncture Site pCO2 pO2 HCO3 ABG pH ABG Total CO2 ABG O2 Saturation ABG Base Excess ABG Hemoglobin ABG Carboxyhemoglobin POC ABG HHb (Measured) ABG Methemoglobin Rinku Test VBG pH VBG pCO2 VBG HCO3 VBG Total CO2 VBG O2 Sat (Calc) VBG Base Excess VBG Potassium A-a O2 Difference Respiratory Index Hgb O2 Saturation Glucose Lactate Vent Mode FiO2 Inspiratory BiPAP Expiratory BiPAP Crit Value Called To Crit Value Called By Crit Value Read Back Blood Gas Notified Time Sodium 137 Potassium 3.9 Chloride 98 Carbon Dioxide 29 Anion Gap 13 BUN 18 Creatinine 0.8 Est GFR ( Amer) > 60 Est GFR (Non-Af Amer) > 60 Random Glucose 141 H D Hemoglobin A1c 8.5 H Calcium 8.6 Phosphorus 3.7 Magnesium 1.9 Iron TIBC % Saturation Total Bilirubin 0.8 AST 193 H D ALT 32 Alkaline Phosphatase 71 Troponin I 41.4000 H* Total Protein 6.8 Albumin 4.1 Globulin 2.7 Albumin/Globulin Ratio 1.5 Venous Blood Potassium Blood Type Antibody Screen 07/13/18 07/13/18 07/13/18 06:16 06:16 06:16 WBC 10.6 RBC 3.88 L Hgb 7.8 L Hct 25.7 L MCV 66.2 L MCH 20.0 L MCHC 30.2 L RDW 20.6 H Plt Count 361 MPV 7.8 Neut % (Auto) 79.1 H Lymph % (Auto) 10.7 L [place] % (Auto) 7.7 Eos % (Auto) 1.9 Baso % (Auto) 0.6 Neut # (Auto) 8.4 H Lymph # (Auto) 1.1 [place] # (Auto) 0.8 Eos # (Auto) 0.2 Baso # (Auto) 0.1 PT INR APTT 50.7 H D Puncture Site pCO2 pO2 HCO3 ABG pH ABG Total CO2 ABG O2 Saturation ABG Base Excess ABG Hemoglobin ABG Carboxyhemoglobin POC ABG HHb (Measured) ABG Methemoglobin Rinku Test VBG pH VBG pCO2 VBG HCO3 VBG Total CO2 VBG O2 Sat (Calc) VBG Base Excess VBG Potassium A-a O2 Difference Respiratory Index Hgb O2 Saturation Glucose Lactate Vent Mode FiO2 Inspiratory BiPAP Expiratory BiPAP Crit Value Called To Crit Value Called By Crit Value Read Back Blood Gas Notified Time Sodium 137 Potassium 4.0 Chloride 102 Carbon Dioxide 31 H Anion Gap 8 L BUN 17 Creatinine 0.8 Est GFR ( Amer) > 60 Est GFR (Non-Af Amer) > 60 Random Glucose 97 D Hemoglobin A1c Calcium 8.4 L Phosphorus 3.4 Magnesium 1.8 Iron TIBC % Saturation Total Bilirubin 0.9 AST 213 H ALT 39 Alkaline Phosphatase 68 Troponin I Total Protein 6.7 Albumin 3.8 Globulin 2.9 Albumin/Globulin Ratio 1.3 Venous Blood Potassium Blood Type Antibody Screen 07/13/18 07/13/18 07/13/18 06:16 12:23 16:29 WBC RBC Hgb Hct MCV MCH MCHC RDW Plt Count MPV Neut % (Auto) Lymph % (Auto) [place] % (Auto) Eos % (Auto) Baso % (Auto) Neut # (Auto) Lymph # (Auto) [place] # (Auto) Eos # (Auto) Baso # (Auto) PT INR APTT 60.2 H D Puncture Site pCO2 pO2 49 HCO3 ABG pH ABG Total CO2 ABG O2 Saturation ABG Base Excess ABG Hemoglobin ABG Carboxyhemoglobin POC ABG HHb (Measured) ABG Methemoglobin Rinku Test VBG pH 7.18 L* VBG pCO2 65 H VBG HCO3 20.2 VBG Total CO2 26.3 VBG O2 Sat (Calc) 80.3 H VBG Base Excess -5.2 L VBG Potassium 3.8 A-a O2 Difference Respiratory Index Hgb O2 Saturation Glucose 237 H Lactate 2.6 H Vent Mode FiO2 Inspiratory BiPAP Expiratory BiPAP Crit Value Called To Dr. tran Crit Value Called By Raghu lowe Crit Value Read Back Y Blood Gas Notified Time 1636 Sodium 138.0 Potassium Chloride 104.0 Carbon Dioxide Anion Gap BUN Creatinine Est GFR ( Amer) Est GFR (Non-Af Amer) Random Glucose Hemoglobin A1c Calcium Phosphorus Magnesium Iron TIBC % Saturation Total Bilirubin AST ALT Alkaline Phosphatase Troponin I 43.1000 H* Total Protein Albumin Globulin Albumin/Globulin Ratio Venous Blood Potassium 3.8 Blood Type Antibody Screen 07/13/18 16:29 WBC RBC Hgb Hct MCV MCH MCHC RDW Plt Count MPV Neut % (Auto) Lymph % (Auto) [place] % (Auto) Eos % (Auto) Baso % (Auto) Neut # (Auto) Lymph # (Auto) [place] # (Auto) Eos # (Auto) Baso # (Auto) PT INR APTT Puncture Site Line pCO2 58 H pO2 558 H HCO3 21.7 ABG pH 7.22 L ABG Total CO2 25.5 ABG O2 Saturation 98.9 H ABG Base Excess -4.2 L ABG Hemoglobin 9.0 L ABG Carboxyhemoglobin 0.7 POC ABG HHb (Measured) 1.1 ABG Methemoglobin 0.0 Rinku Test Na VBG pH VBG pCO2 VBG HCO3 VBG Total CO2 VBG O2 Sat (Calc) VBG Base Excess VBG Potassium A-a O2 Difference 83.0 Respiratory Index 0.1 Hgb O2 Saturation 98.2 H Glucose Lactate Vent Mode Bipap FiO2 100.0 Inspiratory BiPAP 18 Expiratory BiPAP 5 Crit Value Called To Crit Value Called By Crit Value Read Back Blood Gas Notified Time Sodium Potassium Chloride Carbon Dioxide Anion Gap BUN Creatinine Est GFR ( Amer) Est GFR (Non-Af Amer) Random Glucose Hemoglobin A1c Calcium Phosphorus Magnesium Iron TIBC % Saturation Total Bilirubin AST ALT Alkaline Phosphatase Troponin I Total Protein Albumin Globulin Albumin/Globulin Ratio Venous Blood Potassium Blood Type Antibody Screen Attending/Attestation - Attestation I have personally seen and examined this patient.: Yes I have fully participated in the care of the patient.: Yes I have reviewed all pertinent clinical information: Yes Notes (Text): Patient seen and examined 72-year-old male presented with shortness of breath and chest pain, status post code heart for ST elevation [place] Status post cardiac cath with LAD disease IV heparin ICU observation Re-cath tomorrow
[2018-07-12] MEDS ORDERED: Glucagon Recombinant 1 mg Inj IM PRN (16:02)
[2018-07-12] MEDS ORDERED: Dextrose 50% SYRINGE Inj (50 ml) IV PRN (16:02)
[2018-07-12] MEDS ORDERED: Sodium Chloride 0.9% 1,000 ML IV SCH (16:30)
[2018-07-12] MEDS: Nitroglycerin 50mg in D5W 50 MG/250 ML BOTTLE IV SCH (17:22)
[2018-07-12] MEDS: Sodium Chloride 0.9% 1,000 ML IV SCH (17:32)
[2018-07-12] MEDS: (Novolin R) Insulin Human Regular 100 units/ml vial SC SCH ×2 (17:32→22:36)
--- NOTE | 2018-07-12 18:29 | RAD ---
Date of service: 07/12/2018 PROCEDURE: Intraoperative Fluoroscopy. HISTORY: CODE HEART FINDINGS: Fluoroscopic assistance was provided for cardiac catheterization. Please refer to the operative report from ANGELI Sunshine, DR MD. Total fluoroscopic time (continuous mode) utilized during the procedure 180.5 seconds. Total exam DLP: 138.74 (mGy).
--- NOTE | 2018-07-12 19:08 | CARD ---
APPROVED REPORT Date of service: 07/12/2018 EXAM: Two-dimensional and M-mode echocardiogram with Doppler and color Doppler. Other Information Quality : TDSRhythm : INDICATION Chest Pain Code Heart 2D DIMENSIONS IVSd1.0 (0.7-1.1cm)LVDd5.2 (3.9-5.9cm) PWd0.9 (0.7-1.1cm)LA Anlgmm97 (18-58mL) LVDs3.6 (2.5-4.0cm)FS (%) 31.3 % LVEF (%)58.8 (>50%)LVEF (Moore's)64.67 % M-Mode DIMENSIONS Left Atrium (MM)2.60 (2.5-4.0cm)IVSd0.90 (0.7-1.1cm) Aortic Root3.37 (2.2-3.7cm)LVDd5.19 (4.0-5.6cm) Aortic Cusp Exc.1.94 (1.5-2.0cm)PWd0.75 (0.7-1.1cm) FS (%) 35 %LVDs3.37 (2.0-3.8cm) LVEF (%)64 (>50%) Mitral Valve MV E Nugryrdj39.9cm/sMV A Tquxhnoc996.5cm/sE/A ratio0.5 TDI Lateral E' Peak V7.38cm/sMedial E' Peak V5.19cm/sE/Lateral E'7.8 E/Medial E'11.2 Tricuspid Valve TR Peak Klibrelu656uo/sTR Peak [id number] LEFT VENTRICLE The left ventricle is normal size. There is normal left ventricular wall thickness. The systolic function is severely impaired. Significant regional wall motion abnormalities noted. Transmitral Doppler flow pattern is Grade I-abnormal relaxation pattern. The left ventricular apex is not well visualized. RIGHT VENTRICLE The right ventricle is normal size. There is normal right ventricular wall thickness. The right ventricular systolic function is normal. ATRIA The left atrium size is normal. The right atrium size is normal. AORTIC VALVE The aortic valve is mildly sclerotic. No aortic regurgitation is present. There is no aortic valvular stenosis. MITRAL VALVE The mitral valve is mildly thickened. There is no mitral valve stenosis. There is no mitral valve regurgitation noted. TRICUSPID VALVE There is trace tricuspid regurgitation. There is mild pulmonary hypertension. PULMONIC VALVE The pulmonary valve is normal in structure. There is no pulmonic valvular regurgitation. GREAT VESSELS The aortic root is normal in size. The IVC is normal in size and collapses >50% with inspiration. PERICARDIAL EFFUSION There is a trace pericardial effusion. <Conclusion> The left ventricle is normal size. There is normal left ventricular wall thickness. The systolic function is severely impaired.( In contrast to the measured EF) Significant regional wall motion abnormalities noted. Transmitral Doppler flow pattern is Grade I-abnormal relaxation pattern. There is mild pulmonary hypertension.
[2018-07-12] MEDS ORDERED: HYDROmorphone 1 mg/ml ISec IVP STA (20:24)
[2018-07-12] MEDS ORDERED: Heparin25000 units/250ml 1/2NS 25,000 UNITS/250 ML BAG IV PRN (23:41)
[2018-07-13] MEDS ORDERED: HYDROmorphone 1 mg/ml ISec IVP STA ×4 (00:12→23:51)
[2018-07-13 00:51] LABS: BASO % 0.3 % (0.0-2.0); EOS # 0.1 K/uL (0.0-0.7); EOS % 0.5 % (0.0-4.0); HEMOGLOBIN 7.6 g/dL (12.0-18.0); LYMPH # 1.4 K/uL (1.0-4.3); LYMPH % 12.7 % (20.0-40.0); MEAN CELL VOLUME 65.3 fL (80.0-94.0); MEAN CORPUSCULAR HEMOGLOBIN 19.8 pg (27.0-31.0); MEAN CORPUSCULAR HGB CONC 30.3 g/dL (33.0-37.0); MEAN PLATELET VOLUME 8.8 fL (7.2-11.7); MONO # 0.8 K/uL (0.0-0.8); NEUT # 8.7 K/uL (1.8-7.0); NEUT % 79.5 % (50.0-75.0); NRBC % 0.1 % (0.0-2.0); RBC 3.86 Mil/uL (4.40-5.90); RED CELL DISTRIBUTION WIDTH 20.5 % (11.5-14.5)
[2018-07-13 01:02] LABS: IRON 23 ug/dL (49-181)
[2018-07-13 01:08] LABS: ALB/GLOB RATIO 1.5 (1.0-2.1); ALBUMIN 4.1 g/dL (3.5-5.0); ALT/SGPT 32 U/L (21-72); AST/SGOT 193 U/L (17-59); BLOOD UREA NITROGEN 18 mg/dL (9-20); CALCIUM 8.6 mg/dl (8.6-10.4); GFR NON-AFRICAN AMERICAN > 60
[2018-07-13 01:14] LABS: % IRON SATURATION 6 (20-55); TOTAL IRON BINDING CAPACITY 416 ug/dL (250-450)
[2018-07-13 01:27] LABS: INR 1.2; PROTHROMBIN TIME 12.6 SECONDS (9.7-12.2)
[2018-07-13] MEDS: Heparin25000 units/250ml 1/2NS 25,000 UNITS/250 ML BAG IV PRN (01:33)
[2018-07-13] MEDS: Sodium Chloride 0.9% 1,000 ML IV SCH ×2 (03:29→17:30)
--- NOTE | 2018-07-13 04:32 | CARDCATH ---
PROCEDURE DATE: 07/12/2018 INDICATIONS: Mr. Venkat Keating is a 72-year-old male visiting his daughter from [place], who is having intermittent bouts of chest pain ongoing for a few weeks, accompanied with shortness of breath. The patient this afternoon felt his shortness of breath extremely worsened, and he wanted to come to the emergency room. The patient subsequently was taken from the emergency room to the environmental laboratory technician for ST changes noted on the inferior leads associated with ST elevation DC. PROCEDURE PERFORMED: Left heart catheterization with selective right coronary angiogram via the left radial artery approach, attempted percutaneous transluminal coronary angioplasty of occluded right coronary artery. Unable to restore the flow secondary to chronic total occlusion of the mid right coronary artery. [id number] collateral is noted. Left coronary artery system selective angiogram done under fluoroscopy from the IR due to system malfunction. Left coronary artery system showed patent left main bifurcating to LAD and circ. LAD system has a proximal 70% stenosis with high calcific lesion, gives off diagonal branch, free of any obstructive disease. Left circumflex runs in the AV groove, gives off small-sized obtuse marginal branch with [id number] lesion. RCA proximal is 100% free of any calcific lesion with [id number] collateral attempted intervention. AL1 guiding catheter was used to engage the anterior takeoff of the right coronary artery. ProWater Whisper wire was used to cross the lesion. Subsequently, because of minimal back support, guideline was used and balloon was inflated. Multiple inflations were done. I was unable to restore the flow into the residual arteries secondary to ECONOMIC FORECASTER nature. IMPRESSION: Chronic total occlusion of right coronary artery, unable to recanalize the flow. RECOMMENDATION: The patient is to be kept in the ICU. Keep the patient on antiplatelet therapy. Give the patient IV heparin. Plan for reevaluation of the left coronary system at [facility] in 12 to 24 hours. The patient is hemodynamically stable, had mild chest pain at the end of the procedure. Abilio Archuleta MD
[2018-07-13 06:24] LABS: BASO # 0.1 K/uL (0.0-0.2); BASO % 0.6 % (0.0-2.0); EOS # 0.2 K/uL (0.0-0.7); EOS % 1.9 % (0.0-4.0); HEMOGLOBIN 7.8 g/dL (12.0-18.0); LYMPH # 1.1 K/uL (1.0-4.3); LYMPH % 10.7 % (20.0-40.0); MEAN CELL VOLUME 66.2 fL (80.0-94.0); MEAN CORPUSCULAR HGB CONC 30.2 g/dL (33.0-37.0); MEAN PLATELET VOLUME 7.8 fL (7.2-11.7); MONO # 0.8 K/uL (0.0-0.8); MONO % 7.7 % (0.0-10.0); NEUT # 8.4 K/uL (1.8-7.0); NEUT % 79.1 % (50.0-75.0); RBC 3.88 Mil/uL (4.40-5.90); RED CELL DISTRIBUTION WIDTH 20.6 % (11.5-14.5); WHITE BLOOD COUNT 10.6 K/uL (4.8-10.8)
[2018-07-13 06:39] LABS: ALB/GLOB RATIO 1.3 (1.0-2.1); ALBUMIN 3.8 g/dL (3.5-5.0); ALT/SGPT 39 U/L (21-72); AST/SGOT 213 U/L (17-59); BLOOD UREA NITROGEN 17 mg/dL (9-20); CALCIUM 8.4 mg/dl (8.6-10.4); GFR NON-AFRICAN AMERICAN > 60
[2018-07-13] MEDS: (Novolin R) Insulin Human Regular 100 units/ml vial SC SCH ×4 (07:41→21:49)
--- NOTE | 2018-07-13 07:54 | CP.PCM.CON ---
<Abilio Archuleta - Last Filed: 07/13/18 09:53> Meds Allergies/Adverse Reactions: Allergies Allergy/AdvReac Type Severity Reaction Status Date / Time No Known Allergies Allergy Unverified 07/12/18 14:14 - Medications Medications: Current Medications Acetaminophen (Tylenol 325mg Tab) 650 mg PO Q6 PRN PRN Reason: pain Last Admin: 07/13/18 00:22 Dose: 650 mg Dextrose (Dextrose 50% Inj) 0 ml IV STAT PRN; Protocol PRN Reason: Hypoglycemia Protocol Dextrose (Glutose 15) 0 gm PO ONCE PRN; Protocol PRN Reason: Hypoglycemia Protocol Glucagon (Glucagen Diagnostic Kit) 0 mg IM STAT PRN; Protocol PRN Reason: Hypoglycemia Protocol Dextrose (Dextrose 5% In Water 1000 Ml) 1,000 mls @ 0 mls/hr IV .Q0M PRN; Protocol PRN Reason: Hypoglycemia Protocol Nitroglycerin/Dextrose (Nitroglycerin 50 Mg/250 Ml D5w) 50 mg in 250 mls @ 7.5 mls/hr IV .Q24H BASIM; Protocol Last Titration: 07/13/18 06:00 Dose: 20 mcg/min, 6 mls/hr Sodium Chloride (Sodium Chloride 0.9%) 1,000 mls @ 100 mls/hr IV .Q10H BASIM Last Admin: 07/13/18 03:29 Dose: 100 mls/hr Heparin Sodium/Sodium Chloride (Heparin 38913 Units/250ml 1/2 Normal Saline) 25,000 units in 250 mls @ 8.916 mls/hr IV .Q24H PRN; Protocol PRN Reason: ADJUST RATE PER PROTOCOL Last Admin: 07/13/18 01:33 Dose: 12 units/kg/hr, 8.916 mls/hr Insulin Human Regular (Novolin R) 0 unit SC ACHS BASIM; Protocol Last Admin: 07/13/18 07:41 Dose: Not Given Metoprolol Tartrate (Lopressor) 25 mg PO BID STA Stop: 07/13/18 09:51 Rosuvastatin Calcium (Crestor) 10 mg PO HS BASIM Results - Vital Signs Recent Vital Signs: Last Vital Signs Temp 98 F 07/13/18 08:00 Pulse 78 07/13/18 08:10 Resp 19 07/13/18 08:10 BP 112/70 07/13/18 08:10 Pulse Ox 100 07/13/18 08:10 - Labs Result Diagrams: 07/13/18 06:16 07/13/18 06:16 Labs: Laboratory Results - last 24 hr 07/12/18 07/12/18 07/12/18 14:25 14:31 14:31 WBC 15.8 H RBC 4.37 L Hgb 8.7 L Hct 29.2 L MCV 66.8 L MCH 19.8 L MCHC 29.7 L RDW 21.2 H Plt Count 469 H MPV 7.9 Neut % (Auto) 85.9 H Lymph % (Auto) 8.9 L Chester % (Auto) 4.3 Eos % (Auto) 0.6 Baso % (Auto) 0.3 Neut # (Auto) 13.6 H Lymph # (Auto) 1.4 Chester # (Auto) 0.7 Eos # (Auto) 0.1 Baso # (Auto) 0.0 Neutrophils % (Manual) 84 H Lymphocytes % (Manual) 12 L Monocytes % (Manual) 4 Platelet Estimate Slightly increased H Hypochromasia (manual) Slight Poikilocytosis (manual Slight Anisocytosis (manual) Slight Target Cells Slight Ovalocytes Slight Gail Cells Slight PT 12.4 H INR 1.1 APTT 28.6 Sodium Potassium Chloride Carbon Dioxide Anion Gap BUN Creatinine Est GFR ( Amer) Est GFR (Non-Af Amer) POC Glucose (mg/dL) 307 H Random Glucose Hemoglobin A1c Calcium Phosphorus Magnesium Iron TIBC % Saturation Total Bilirubin AST ALT Alkaline Phosphatase Troponin I Total Protein Albumin Globulin Albumin/Globulin Ratio Blood Type Antibody Screen 07/12/18 07/12/18 07/13/18 14:31 14:31 00:45 WBC RBC Hgb Hct MCV MCH MCHC RDW Plt Count MPV Neut % (Auto) Lymph % (Auto) Chester % (Auto) Eos % (Auto) Baso % (Auto) Neut # (Auto) Lymph # (Auto) Chester # (Auto) Eos # (Auto) Baso # (Auto) Neutrophils % (Manual) Lymphocytes % (Manual) Monocytes % (Manual) Platelet Estimate Hypochromasia (manual) Poikilocytosis (manual Anisocytosis (manual) Target Cells Ovalocytes Dunia Cells PT INR APTT Sodium 140 Potassium 5.2 Chloride 97 L Carbon Dioxide 23 Anion Gap 25 H BUN 21 H Creatinine 1.0 Est GFR ( Amer) > 60 Est GFR (Non-Af Amer) > 60 POC Glucose (mg/dL) Random Glucose 289 H Hemoglobin A1c Calcium 9.0 Phosphorus Magnesium Iron 23 L TIBC 416 % Saturation 6 L Total Bilirubin 0.9 AST 26 ALT 15 L Alkaline Phosphatase 91 Troponin I 0.1480 H* Total Protein 7.7 Albumin 4.7 Globulin 3.0 Albumin/Globulin Ratio 1.6 Blood Type O POSITIVE Antibody Screen Negative 07/13/18 07/13/18 07/13/18 00:45 00:45 00:45 WBC 11.0 H RBC 3.86 L Hgb 7.6 L Hct 25.2 L MCV 65.3 L MCH 19.8 L MCHC 30.3 L RDW 20.5 H Plt Count 384 MPV 8.8 Neut % (Auto) 79.5 H Lymph % (Auto) 12.7 L Chester % (Auto) 7.0 Eos % (Auto) 0.5 Baso % (Auto) 0.3 Neut # (Auto) 8.7 H Lymph # (Auto) 1.4 Chester # (Auto) 0.8 Eos # (Auto) 0.1 Baso # (Auto) 0.0 Neutrophils % (Manual) Lymphocytes % (Manual) Monocytes % (Manual) Platelet Estimate Hypochromasia (manual) Poikilocytosis (manual Anisocytosis (manual) Target Cells Ovalocytes Gail Cells PT INR APTT Sodium 137 Potassium 3.9 Chloride 98 Carbon Dioxide 29 Anion Gap 13 BUN 18 Creatinine 0.8 Est GFR ( Amer) > 60 Est GFR (Non-Af Amer) > 60 POC Glucose (mg/dL) Random Glucose 141 H D Hemoglobin A1c 8.5 H Calcium 8.6 Phosphorus 3.7 Magnesium 1.9 Iron TIBC % Saturation Total Bilirubin 0.8 AST 193 H D ALT 32 Alkaline Phosphatase 71 Troponin I 41.4000 H* Total Protein 6.8 Albumin 4.1 Globulin 2.7 Albumin/Globulin Ratio 1.5 Blood Type Antibody Screen 07/13/18 07/13/18 07/13/18 00:45 06:16 06:16 WBC 10.6 RBC 3.88 L Hgb 7.8 L Hct 25.7 L MCV 66.2 L MCH 20.0 L MCHC 30.2 L RDW 20.6 H Plt Count 361 MPV 7.8 Neut % (Auto) 79.1 H Lymph % (Auto) 10.7 L Chester % (Auto) 7.7 Eos % (Auto) 1.9 Baso % (Auto) 0.6 Neut # (Auto) 8.4 H Lymph # (Auto) 1.1 Chester # (Auto) 0.8 Eos # (Auto) 0.2 Baso # (Auto) 0.1 Neutrophils % (Manual) Lymphocytes % (Manual) Monocytes % (Manual) Platelet Estimate Hypochromasia (manual) Poikilocytosis (manual Anisocytosis (manual) Target Cells Ovalocytes Gail Cells PT 12.6 H INR 1.2 APTT 29.0 Sodium 137 Potassium 4.0 Chloride 102 Carbon Dioxide 31 H Anion Gap 8 L BUN 17 Creatinine 0.8 Est GFR ( Amer) > 60 Est GFR (Non-Af Amer) > 60 POC Glucose (mg/dL) Random Glucose 97 D Hemoglobin A1c Calcium 8.4 L Phosphorus 3.4 Magnesium 1.8 Iron TIBC % Saturation Total Bilirubin 0.9 AST 213 H ALT 39 Alkaline Phosphatase 68 Troponin I Total Protein 6.7 Albumin 3.8 Globulin 2.9 Albumin/Globulin Ratio 1.3 Blood Type Antibody Screen 07/13/18 07/13/18 06:16 06:16 WBC RBC Hgb Hct MCV MCH MCHC RDW Plt Count MPV Neut % (Auto) Lymph % (Auto) Chester % (Auto) Eos % (Auto) Baso % (Auto) Neut # (Auto) Lymph # (Auto) Chester # (Auto) Eos # (Auto) Baso # (Auto) Neutrophils % (Manual) Lymphocytes % (Manual) Monocytes % (Manual) Platelet Estimate Hypochromasia (manual) Poikilocytosis (manual Anisocytosis (manual) Target Cells Ovalocytes Dunia Cells PT INR APTT 50.7 H D Sodium Potassium Chloride Carbon Dioxide Anion Gap BUN Creatinine Est GFR ( Amer) Est GFR (Non-Af Amer) POC Glucose (mg/dL) Random Glucose Hemoglobin A1c Calcium Phosphorus Magnesium Iron TIBC % Saturation Total Bilirubin AST ALT Alkaline Phosphatase Troponin I 43.1000 H* Total Protein Albumin Globulin Albumin/Globulin Ratio Blood Type Antibody Screen Attending/Attestation - Attestation I have personally seen and examined this patient.: Yes I have fully participated in the care of the patient.: Yes I have reviewed all pertinent clinical information: Yes Notes (Text): 05/29/19 09:53 72-year-old male with history of hypertension diabetes mellitus hyperlipidemia who is visiting his daughter from [place] who presented with complaints of chest pain the morning of presentation patient has been having intermittent bouts of chest pain accompanied with shortness of breath for a few weeks prior to prese ntation the morning he felt that his shortness of breath got worse and started having constant pain which was intermittent in nature and the subsequent in the preceding weeks. In initial presentation EKG in the emergency room showed ST elevations in inferior leads he was taken to the [facility] where the right coronary artery was cannulated with a AL-1 guiding catheter secondary to anterior takeoff the vessel was severely calcified we were able to wire the lesion but the balloon was unable to cross. Secondary to severe chronic calcific lesions. Multiple attempts were made during the procedure and cath equipment malfunction because the procedure to be stopped we were able to obtain a CT arm from the radiology lab and inject the left coronary system to document that there is no obstructive disease. Because of the poor visualization of the left system and limited information was obtained plan was to take the patient to be on the following day for complete for attempt at analyzing the vasculature of the coronary system. Continue the patient on IV heparin drip continue dual antiplatelet therapy introduced low-dose beta-blockers as blood pressure tolerates to decrease the infarct size also plan on adding low-dose ELIEL or arm depending on blood pressure response to beta-christina therapy. <Keri Escamilla - Last Filed: 07/13/18 14:35> History of Present Illness - History of Present Illness History of Present Illness: Keri Escamilla, PGY1 Consult Note for Dr. Archuleta: CC: CP and SOB Consulted for: Code heart Pt is a 72yo M with pmhx of HTN, HLD, and DM who presented to the [facility] ED for complaints of chest pain and SOB x 2 week which had acutely worsened the day of admission. Pt reported an 8/10 mid sternal chest pain which started the morning of admission which was non-radiating. In ED pt was noted to have ST elevation in inferior leads and was emergently loaded with plavix and then transported to technology lab teacher. During cath, showed a chronic total occlusion of RCA which was not amenable to ballooning. Pt was then placed on heparin and nitro drip for continued chest pain, and will be transferred to [facility] today for further evaluation of coronary vasculature. As of this time the pt states that his chest pain is improved, though does admit to a headache. He reports that overnight he only had one recurrence of the chest pain and that was when he was attempting to change his clothes, but resolved with rest. Pt also stated that around that time the nitro drip was reduced due to his blood pressure, which may have also contributed to the chest pain. Pt denies fevers, chills, lightheadedness, SOB, cough, palpitations, Abd pain, n/v, c/d, dysuria or diaphoresis. Past Patient History - Infectious Disease Hx of Infectious Diseases: None - Past Social History Smoking Status: Never Smoked - CARDIAC Hx Hypercholesterolemia: Yes Hx Hypertension: Yes - PULMONARY Hx Bronchitis: Yes - ENDOCRINE/METABOLIC Hx Diabetes Mellitus Type 2: Yes - MUSCULOSKELETAL/RHEUMATOLOGICAL Other/Comment: Spondylosis - PSYCHIATRIC Hx Substance Use: No - SURGICAL HISTORY Hx Surgeries: No - ANESTHESIA Hx Anesthesia: No Meds - Medications Medications: Current Medications Acetaminophen (Tylenol 325mg Tab) 650 mg PO Q6 PRN PRN Reason: pain Last Admin: 07/13/18 00:22 Dose: 650 mg Dextrose (Dextrose 50% Inj) 0 ml IV STAT PRN; Protocol PRN Reason: Hypoglycemia Protocol Dextrose (Glutose 15) 0 gm PO ONCE PRN; Protocol PRN Reason: Hypoglycemia Protocol Glucagon (Glucagen Diagnostic Kit) 0 mg IM STAT PRN; Protocol PRN Reason: Hypoglycemia Protocol Dextrose (Dextrose 5% In Water 1000 Ml) 1,000 mls @ 0 mls/hr IV .Q0M PRN; Pro tocol PRN Reason: Hypoglycemia Protocol Nitroglycerin/Dextrose (Nitroglycerin 50 Mg/250 Ml D5w) 50 mg in 250 mls @ 7.5 mls/hr IV .Q24H BASIM; Protocol Last Titration: 07/13/18 06:00 Dose: 20 mcg/min, 6 mls/hr Sodium Chloride (Sodium Chloride 0.9%) 1,000 mls @ 100 mls/hr IV .Q10H BASIM Last Admin: 07/13/18 03:29 Dose: 100 mls/hr Heparin Sodium/Sodium Chloride (Heparin 26897 Units/250ml 1/2 Normal Saline) 25,000 units in 250 mls @ 8.916 mls/hr IV .Q24H PRN; Protocol PRN Reason: ADJUST RATE PER PROTOCOL Last Admin: 07/13/18 01:33 Dose: 12 units/kg/hr, 8.916 mls/hr Insulin Human Regular (Novolin R) 0 unit SC [facility]; Protocol Last Admin: 07/13/18 07:41 Dose: Not Given Rosuvastatin Calcium (Crestor) 20 mg PO HS [facility] Physical Exam - Constitutional Appears: Non-toxic, No Acute Distress - Head Exam Head Exam: ATRAUMATIC, NORMAL INSPECTION, NORMOCEPHALIC - Eye Exam Eye Exam: EOMI, Normal appearance, PERRL - Respiratory Exam Respiratory Exam: Clear to Auscultation Bilateral, NORMAL BREATHING PATTERN. absent: Accessory Muscle Use, Chest Wall Tenderness, Rales, Rhonchi, Wheezes - Cardiovascular Exam Cardiovascular Exam: RRR, +S1, +S2. absent: Gallop, Rubs - GI/Abdominal Exam GI & Abdominal Exam: Normal Bowel Sounds, Soft. absent: Distended, Firm, Guarding, Tenderness - Extremities Exam Extremities exam: Positive for: normal capillary refill, pedal pulses present. Negative for: calf tenderness, pedal edema - Back Exam Back exam: NORMAL INSPECTION. absent: CVA tenderness (L), CVA tenderness (R) - Neurological Exam Neurological exam: Alert, Oriented x3 - Psychiatric Exam Psychiatric exam: Normal Affect, Normal Mood - Skin Skin Exam: Dry, Normal Color, Warm Results - Vital Signs Recent Vital Signs: Last Vital Signs Temp 97.9 F 07/12/18 19:30 Pulse 76 07/13/18 07:10 Resp 17 07/13/18 07:10 BP 111/68 07/13/18 07:10 Pulse Ox 100 07/13/18 07:10 - Labs Result Diagrams: 07/13/18 06:16 07/13/18 06:16 Labs: Laboratory Results - last 24 hr 07/12/18 07/12/18 07/12/18 14:25 14:31 14:31 WBC 15.8 H RBC 4.37 L Hgb 8.7 L Hct 29.2 L MCV 66.8 L MCH 19.8 L MCHC 29.7 L RDW 21.2 H Plt Count 469 H MPV 7.9 Neut % (Auto) 85.9 H Lymph % (Auto) 8.9 L Chester % (Auto) 4.3 Eos % (Auto) 0.6 Baso % (Auto) 0.3 Neut # (Auto) 13.6 H Lymph # (Auto) 1.4 Chester # (Auto) 0.7 Eos # (Auto) 0.1 Baso # (Auto) 0.0 Neutrophils % (Manual) 84 H Lymphocytes % (Manual) 12 L Monocytes % (Manual) 4 Platelet Estimate Slightly increased H Hypochromasia (manual) Slight Poikilocytosis (manual Slight Anisocytosis (manual) Slight Target Cells Slight Ovalocytes Slight Gail Cells Slight PT 12.4 H INR 1.1 APTT 28.6 Sodium Potassium Chloride Carbon Dioxide Anion Gap BUN Creatinine Est GFR ( Amer) Est GFR (Non-Af Amer) POC Glucose (mg/dL) 307 H Random Glucose Calcium Phosphorus Magnesium Iron TIBC % Saturation Total Bilirubin AST ALT Alkaline Phosphatase Troponin I Total Protein Albumin Globulin Albumin/Globulin Ratio Blood Type Antibody Screen 07/12/18 07/12/18 07/13/18 14:31 14:31 00:45 WBC RBC Hgb Hct MCV MCH MCHC RDW Plt Count MPV Neut % (Auto) Lymph % (Auto) Chester % (Auto) Eos % (Auto) Baso % (Auto) Neut # (Auto) Lymph # (Auto) Chester # (Auto) Eos # (Auto) Baso # (Auto) Neutrophils % (Manual) Lymphocytes % (Manual) Monocytes % (Manual) Platelet Estimate Hypochromasia (manual) Poikilocytosis (manual Anisocytosis (manual) Target Cells Ovalocytes Gail Cells PT INR APTT Sodium 140 Potassium 5.2 Chloride 97 L Carbon Dioxide 23 Anion Gap 25 H BUN 21 H Creatinine 1.0 Est GFR ( Amer) > 60 Est GFR (Non-Af Amer) > 60 POC Glucose (mg/dL) Random Glucose 289 H Calcium 9.0 Phosphorus Magnesium Iron 23 L TIBC 416 % Saturation 6 L Total Bilirubin 0.9 AST 26 ALT 15 L Alkaline Phosphatase 91 Troponin I 0.1480 H* Total Protein 7.7 Albumin 4.7 Globulin 3.0 Albumin/Globulin Ratio 1.6 Blood Type O POSITIVE Antibody Screen Negative 07/13/18 07/13/18 07/13/18 00:45 00:45 00:45 WBC 11.0 H RBC 3.86 L Hgb 7.6 L Hct 25.2 L MCV 65.3 L MCH 19.8 L MCHC 30.3 L RDW 20.5 H Plt Count 384 MPV 8.8 Neut % (Auto) 79.5 H Lymph % (Auto) 12.7 L Chester % (Auto) 7.0 Eos % (Auto) 0.5 Baso % (Auto) 0.3 Neut # (Auto) 8.7 H Lymph # (Auto) 1.4 Chester # (Auto) 0.8 Eos # (Auto) 0.1 Baso # (Auto) 0.0 Neutrophils % (Manual) Lymphocytes % (Manual) Monocytes % (Manual) Platelet Estimate Hypochromasia (manual) Poikilocytosis (manual Anisocytosis (manual) Target Cells Ovalocytes Dunia Cells PT 12.6 H INR 1.2 APTT 29.0 Sodium 137 Potassium 3.9 Chloride 98 Carbon Dioxide 29 Anion Gap 13 BUN 18 Creatinine 0.8 Est GFR ( Amer) > 60 Est GFR (Non-Af Amer) > 60 POC Glucose (mg/dL) Random Glucose 141 H D Calcium 8.6 Phosphorus 3.7 Magnesium 1.9 Iron TIBC % Saturation Total Bilirubin 0.8 AST 193 H D ALT 32 Alkaline Phosphatase 71 Troponin I 41.4000 H* Total Protein 6.8 Albumin 4.1 Globulin 2.7 Albumin/Globulin Ratio 1.5 Blood Type Antibody Screen 07/13/18 07/13/18 07/13/18 06:16 06:16 06:16 WBC 10.6 RBC 3.88 L Hgb 7.8 L Hct 25.7 L MCV 66.2 L MCH 20.0 L MCHC 30.2 L RDW 20.6 H Plt Count 361 MPV 7.8 Neut % (Auto) 79.1 H Lymph % (Auto) 10.7 L Chester % (Auto) 7.7 Eos % (Auto) 1.9 Baso % (Auto) 0.6 Neut # (Auto) 8.4 H Lymph # (Auto) 1.1 Chester # (Auto) 0.8 Eos # (Auto) 0.2 Baso # (Auto) 0.1 Neutrophils % (Manual) Lymphocytes % (Manual) Monocytes % (Manual) Platelet Estimate Hypochromasia (manual) Poikilocytosis (manual Anisocytosis (manual) Target Cells Ovalocytes Gail Cells PT INR APTT 50.7 H D Sodium 137 Potassium 4.0 Chloride 102 Carbon Dioxide 31 H Anion Gap 8 L BUN 17 Creatinine 0.8 Est GFR ( Amer) > 60 Est GFR (Non-Af Amer) > 60 POC Glucose (mg/dL) Random Glucose 97 D Calcium 8.4 L Phosphorus 3.4 Magnesium 1.8 Iron TIBC % Saturation Total Bilirubin 0.9 AST 213 H ALT 39 Alkaline Phosphatase 68 Troponin I Total Protein 6.7 Albumin 3.8 Globulin 2.9 Albumin/Globulin Ratio 1.3 Blood Type Antibody Screen 07/13/18 06:16 WBC RBC Hgb Hct MCV MCH MCHC RDW Plt Count MPV Neut % (Auto) Lymph % (Auto) Chester % (Auto) Eos % (Auto) Baso % (Auto) Neut # (Auto) Lymph # (Auto) Chester # (Auto) Eos # (Auto) Baso # (Auto) Neutrophils % (Manual) Lymphocytes % (Manual) Monocytes % (Manual) Platelet Estimate Hypochromasia (manual) Poikilocytosis (manual Anisocytosis (manual) Target Cells Ovalocytes Dunia Cells PT INR APTT Sodium Potassium Chloride Carbon Dioxide Anion Gap BUN Creatinine Est GFR ( Amer) Est GFR (Non-Af Amer) POC Glucose (mg/dL) Random Glucose Calcium Phosphorus Magnesium Iron TIBC % Saturation Total Bilirubin AST ALT Alkaline Phosphatase Troponin I 43.1000 H* Total Protein Albumin Globulin Albumin/Globulin Ratio Blood Type Antibody Screen Assessment & Plan - Assessment and Plan (Free Text) Plan: STEMI: - Per EKG noted to be localized to inferior wall territory - PTCA attempted but lesion was not amenable to ballooning given calcified nature of lesion - Will re-eval L side of circulation today - Cont Asa, heparin drip, nitro drip, b-christina and statin Hx of HTN: - Cont B christina Hx of HLD - Cont statin
--- NOTE | 2018-07-13 09:24 | CP.PCM.PN ---
Subjective - Date & Time of Evaluation Date of Evaluation: 07/13/18 Time of Evaluation: 09:00 - Subjective Subjective: Patient was seen and examined by me. The patient is currently on a nitroglycerin ggt dur to chest pain that occured in the morning. From what I understand there are plans to go to [facility] later today for further cardiac intervention As previously mentioned this is a 72 yr old male who yesterday afternoon had a CODE Heart and found to have 60% stenosis of distal LAD, 70% stenosis of proximal LAD, RCA not visualized Family at bedside Objective - Vital Signs/Intake and Output Vital Signs (last 24 hours): Temp Pulse Resp BP Pulse Ox 98 F 78 19 112/70 100 07/13/18 08:00 07/13/18 08:10 07/13/18 08:10 07/13/18 08:10 07/13/18 08:10 Intake and Output: 07/13/18 07/13/18 06:59 18:59 Intake Total 70.5 344.7 Balance 70.5 344.7 - Medications Medications: Current Medications Acetaminophen (Tylenol 325mg Tab) 650 mg PO Q6 PRN PRN Reason: pain Last Admin: 07/13/18 00:22 Dose: 650 mg Dextrose (Dextrose 50% Inj) 0 ml IV STAT PRN; Protocol PRN Reason: Hypoglycemia Protocol Dextrose (Glutose 15) 0 gm PO ONCE PRN; Protocol PRN Reason: Hypoglycemia Protocol Glucagon (Glucagen Diagnostic Kit) 0 mg IM STAT PRN; Protocol PRN Reason: Hypoglycemia Protocol Dextrose (Dextrose 5% In Water 1000 Ml) 1,000 mls @ 0 mls/hr IV .Q0M PRN; Protocol PRN Reason: Hypoglycemia Protocol Nitroglycerin/Dextrose (Nitroglycerin 50 Mg/250 Ml D5w) 50 mg in 250 mls @ 7.5 mls/hr IV .Q24H BASIM; Protocol Last Titration: 07/13/18 06:00 Dose: 20 mcg/min, 6 mls/hr Sodium Chloride (Sodium Chloride 0.9%) 1,000 mls @ 100 mls/hr IV .Q10H BASIM Last Admin: 07/13/18 03:29 Dose: 100 mls/hr Heparin Sodium/Sodium Chloride (Heparin 66658 Units/250ml 1/2 Normal Saline) 25,000 units in 250 mls @ 8.916 mls/hr IV .Q24H PRN; Protocol PRN Reason: ADJUST RATE PER PROTOCOL Last Admin: 07/13/18 01:33 Dose: 12 units/kg/hr, 8.916 mls/hr Insulin Human Regular (Novolin R) 0 unit SC [facility]; Protocol Last Admin: 07/13/18 07:41 Dose: Not Given Rosuvastatin Calcium (Crestor) 20 mg PO HS BASIM - Labs Labs: 07/13/18 06:16 07/13/18 06:16 PT 12.6 SECONDS (9.7-12.2) H 07/13/18 00:45 INR 1.2 07/13/18 00:45 APTT 50.7 SECONDS (21-34) H D 07/13/18 06:16 - Constitutional Appears: Non-toxic, No Acute Distress - Head Exam Head Exam: NORMAL INSPECTION, NORMOCEPHALIC - Eye Exam Eye Exam: EOMI, Normal appearance - ENT Exam ENT Exam: Mucous Membranes Moist - Respiratory Exam Respiratory Exam: Clear to Ausculation Bilateral, NORMAL BREATHING PATTERN. absent: Decreased Breath Sounds - Cardiovascular Exam Cardiovascular Exam: REGULAR RHYTHM - GI/Abdominal Exam GI & Abdominal Exam: Soft, Normal Bowel Sounds. absent: Distended, Firm, Guarding, Rigid, Tenderness - Neurological Exam Neurological Exam: Alert, Awake, Oriented x3 Neuro motor strength exam: Left Upper Extremity: 5, Right Upper Extremity: 5, Left Lower Extremity: 5, Right Lower Extremity: 5 - Psychiatric Exam Psychiatric exam: Normal Affect, Normal Mood - Skin Skin Exam: Normal Color, Warm Assessment and Plan - Assessment and Plan (Free Text) Assessment: Patient is a 72yo M with PMH HTN, HLD, DM, hemorrhoids who presents to ED with chest pain and shortness of breath. EKG showing STEMI. Code-heart. Admitted to ICU. Plan: 1 STEMI 07/13: Patient found to have 60% stenosis of distal LAD, 70% stenosis of proximal LAD, RCA not visualized On nitroglycerin ggt On crestor, ASA, and heparin ggt at this time. Pending transfer to [facility] for further intervention Discussed with family and patient 2 Diabetes 07/13: Crestor, ASA. HgbA1C was 8.5 The patient is currently on a SSI 3. HTN 07/13: Currently not on BB and ELIEL-I. On a rintroglycerin ggt
--- NOTE | 2018-07-13 10:39 | CP.CCUPN ---
<GriffinangelineBhavya - Last Filed: 07/13/18 13:55> CCU Subjective - Physician Review Subjective (Free Text): 07/13/18 10:36 Jessicahector Moyaangeline PGY1 Progress Note for Dr. Moncada Pt was examined at bedside this morning. He reports continuation of his chest pain which is on the L side. He reports feeling fatigued. He has no other complaints. CCU Objective - Vital Signs / Intake & Output Vital Signs (Last 4 hours): Vital Signs Temp Pulse Resp BP Pulse Ox 07/13/18 10:16 121/67 07/13/18 08:10 78 19 112/70 100 07/13/18 08:00 98 F 19 100 07/13/18 07:10 76 17 111/68 100 07/13/18 07:00 78 19 99 07/13/18 06:50 91 H 17 100 07/13/18 06:40 88 21 100 Intake and Output (Last 8hrs): Intake & Output 07/12/18 07/13/18 07/13/18 22:59 06:59 14:59 Intake Total 756 1084.9 344.7 Output Total 0 900 Balance 756 184.9 344.7 Weight 74.3 kg Intake: IV 70.5 Intake, IV Amount 636 894.4 344.7 Right Antecubital 36 41.0 18 Right Hand 600 800 300 Right Hand #2 0 53.4 26.7 Oral 120 120 0 Output: Urine 900 Urine, Voided 900 Emesis 0 0 Other: # Voids Urine, Voided 0 0 0 # Bowel Movements 0 0 - Physical Exam Head: Positive for: Atraumatic, Normocephalic Pupils: Positive for: PERRL Extroacular Muscles: Positive for: EOMI Conjunctiva: Positive for: Normal Mouth: Positive for: Moist Mucous Membranes Neck: Positive for: Normal Range of Motion Respiratory/Chest: Positive for: Clear to Auscultation, Good Air Exchange. Negative for: Respiratory Distress, Accessory Muscle Use Cardiovascular: Positive for: Regular Rate and Rhythm, Normal S1, S2. Negative for: Murmurs, Rub, Gallop Abdomen: Positive for: Normal Bowel Sounds. Negative for: Tenderness, Distention, Peritoneal Signs Upper Extremity: Positive for: Normal Inspection, Normal ROM, NORMAL PULSES. Negative for: Cyanosis, Edema Lower Extremity: Positive for: Normal Inspection, Edema, NORMAL PULSES. Negative for: CALF TENDERNESS Neurological: Positive for: GCS=15, CN II-XII Intact, Speech Normal Skin: Positive for: Warm, Normal Color. Negative for: Dry, Rashes Psychiatric: Positive for: Alert, Oriented x 3, Normal Insight, Normal Concentration - Medications Active Medications: Active Medications Generic Name Dose Route Start Last Admin Trade Name Freq PRN Reason Stop Dose Admin Acetaminophen 650 mg 07/13/18 00:01 07/13/18 00:22 Tylenol 325mg Tab PO 650 mg Q6 PRN Administration pain Dextrose 0 ml 07/12/18 16:02 Dextrose 50% Inj IV STAT PRN Hypoglycemia Protocol Protocol Dextrose 0 gm 07/12/18 16:02 Glutose 15 PO ONCE PRN Hypoglycemia Protocol Protocol Glucagon 0 mg 07/12/18 16:02 Glucagen Diagnostic Kit IM STAT PRN Hypoglycemia Protocol Protocol Dextrose 1,000 mls @ 0 mls/hr 07/12/18 16:02 Dextrose 5% In Water 1000 Ml IV .Q0M PRN Hypoglycemia Protocol Protocol Per Protocol Nitroglycerin/Dextrose 50 mg in 250 mls @ 7.5 mls/hr 07/12/18 17:15 07/13/18 06:00 Nitroglycerin 50 Mg/250 Ml D5w IV 20 mcg/min .Q24H BASIM 6 mls/hr Titration Protocol 25 MCG/MIN Sodium Chloride 1,000 mls @ 100 mls/hr 07/12/18 17:45 07/13/18 03:29 Sodium Chloride 0.9% IV 100 mls/hr .Q10H BASIM Administration Heparin Sodium/Sodium Chloride 25,000 units in 250 mls @ 8.916 mls/hr 07/13/18 00:38 07/13/18 01:33 Heparin 27334 Units/250ml 1/2 Normal Saline IV 12 units/kg/hr .Q24H PRN 8.916 mls/hr ADJUST RATE PER PROTOCOL Administration Protocol 12 UNITS/KG/HR Insulin Human Regular 0 unit 07/12/18 16:30 07/13/18 07:41 Novolin R SC Not Given ACHS BASIM Protocol Metoprolol Tartrate 25 mg 07/13/18 10:15 07/13/18 10:16 Lopressor PO 25 mg BID BASIM Administration Rosuvastatin Calcium 10 mg 07/13/18 22:00 Crestor PO HS BASIM - Patient Studies Lab Studies: Lab Studies 07/13/18 07/13/18 07/13/18 Range/Units 06:16 06:16 06:16 WBC (4.8-10.8) K/uL RBC (4.40-5.90) Mil/uL Hgb (12.0-18.0) g/dL Hct (35.0-51.0) % MCV (80.0-94.0) fL MCH (27.0-31.0) pg MCHC (33.0-37.0) g/dL RDW (11.5-14.5) % Plt Count (130-400) K/uL MPV (7.2-11.7) fL Neut % (Auto) (50.0-75.0) % Lymph % (Auto) (20.0-40.0) % [place] % (Auto) (0.0-10.0) % Eos % (Auto) (0.0-4.0) % Baso % (Auto) (0.0-2.0) % Neut # (Auto) (1.8-7.0) K/uL Lymph # (Auto) (1.0-4.3) K/uL [place] # (Auto) (0.0-0.8) K/uL Eos # (Auto) (0.0-0.7) K/uL Baso # (Auto) (0.0-0.2) K/uL Neutrophils % (Manual) (50-75) % Lymphocytes % (Manual) (20-40) % Monocytes % (Manual) (0-10) % Platelet Estimate (NORMAL) Hypochromasia (manual) Poikilocytosis (manual Anisocytosis (manual) Target Cells Ovalocytes [place] Cells PT (9.7-12.2) SECONDS INR APTT 50.7 H D (21-34) SECONDS Sodium 137 (132-148) mmol/L Potassium 4.0 (3.6-5.2) mmol/L Chloride 102 (98-107) mmol/L Carbon Dioxide 31 H (22-30) mmol/L Anion Gap 8 L (10-20) BUN 17 (9-20) mg/dL Creatinine 0.8 (0.8-1.5) mg/dL Est GFR ( Amer) > 60 Est GFR (Non-Af Amer) > 60 POC Glucose (mg/dL) (65-110) mg/dL Random Glucose 97 D (75-110) mg/dL Hemoglobin A1c (4.2-6.5) % Calcium 8.4 L (8.6-10.4) mg/dl Phosphorus 3.4 (2.5-4.5) mg/dL Magnesium 1.8 (1.6-2.3) mg/dL Iron (49-181) ug/dL TIBC (250-450) ug/dL % Saturation (20-55) Total Bilirubin 0.9 (0.2-1.3) mg/dL AST 213 H (17-59) U/L ALT 39 (21-72) U/L Alkaline Phosphatase 68 (38-126) U/L Troponin I 43.1000 H* (0.00-0.120) ng/mL Total Protein 6.7 (6.3-8.3) g/dL Albumin 3.8 (3.5-5.0) g/dL Globulin 2.9 (2.2-3.9) gm/dL Albumin/Globulin Ratio 1.3 (1.0-2.1) Blood Type Antibody Screen 07/13/18 07/13/18 07/13/18 Range/Units 06:16 00:45 00:45 WBC 10.6 (4.8-10.8) K/uL RBC 3.88 L (4.40-5.90) Mil/uL Hgb 7.8 L (12.0-18.0) g/dL Hct 25.7 L (35.0-51.0) % MCV 66.2 L (80.0-94.0) fL MCH 20.0 L (27.0-31.0) pg MCHC 30.2 L (33.0-37.0) g/dL RDW 20.6 H (11.5-14.5) % Plt Count 361 (130-400) K/uL MPV 7.8 (7.2-11.7) fL Neut % (Auto) 79.1 H (50.0-75.0) % Lymph % (Auto) 10.7 L (20.0-40.0) % [place] % (Auto) 7.7 (0.0-10.0) % Eos % (Auto) 1.9 (0.0-4.0) % Baso % (Auto) 0.6 (0.0-2.0) % Neut # (Auto) 8.4 H (1.8-7.0) K/uL Lymph # (Auto) 1.1 (1.0-4.3) K/uL [place] # (Auto) 0.8 (0.0-0.8) K/uL Eos # (Auto) 0.2 (0.0-0.7) K/uL Baso # (Auto) 0.1 (0.0-0.2) K/uL Neutrophils % (Manual) (50-75) % Lymphocytes % (Manual) (20-40) % Monocytes % (Manual) (0-10) % Platelet Estimate (NORMAL) Hypochromasia (manual) Poikilocytosis (manual Anisocytosis (manual) Target Cells Ovalocytes [place] Cells PT 12.6 H (9.7-12.2) SECONDS INR 1.2 APTT 29.0 (21-34) SECONDS Sodium (132-148) mmol/L Potassium (3.6-5.2) mmol/L Chloride (98-107) mmol/L Carbon Dioxide (22-30) mmol/L Anion Gap (10-20) BUN (9-20) mg/dL Creatinine (0.8-1.5) mg/dL Est GFR ( Amer) Est GFR (Non-Af Amer) POC Glucose (mg/dL) (65-110) mg/dL Random Glucose (75-110) mg/dL Hemoglobin A1c 8.5 H (4.2-6.5) % Calcium (8.6-10.4) mg/dl Phosphorus (2.5-4.5) mg/dL Magnesium (1.6-2.3) mg/dL Iron (49-181) ug/dL TIBC (250-450) ug/dL % Saturation (20-55) Total Bilirubin (0.2-1.3) mg/dL AST (17-59) U/L ALT (21-72) U/L Alkaline Phosphatase (38-126) U/L Troponin I (0.00-0.120) ng/mL Total Protein (6.3-8.3) g/dL Albumin (3.5-5.0) g/dL Globulin (2.2-3.9) gm/dL Albumin/Globulin Ratio (1.0-2.1) Blood Type Antibody Screen 07/13/18 07/13/18 07/13/18 Range/Units 00:45 00:45 00:45 WBC 11.0 H (4.8-10.8) K/uL RBC 3.86 L (4.40-5.90) Mil/uL Hgb 7.6 L (12.0-18.0) g/dL Hct 25.2 L (35.0-51.0) % MCV 65.3 L (80.0-94.0) fL MCH 19.8 L (27.0-31.0) pg MCHC 30.3 L (33.0-37.0) g/dL RDW 20.5 H (11.5-14.5) % Plt Count 384 (130-400) K/uL MPV 8.8 (7.2-11.7) fL Neut % (Auto) 79.5 H (50.0-75.0) % Lymph % (Auto) 12.7 L (20.0-40.0) % [place] % (Auto) 7.0 (0.0-10.0) % Eos % (Auto) 0.5 (0.0-4.0) % Baso % (Auto) 0.3 (0.0-2.0) % Neut # (Auto) 8.7 H (1.8-7.0) K/uL Lymph # (Auto) 1.4 (1.0-4.3) K/uL [place] # (Auto) 0.8 (0.0-0.8) K/uL Eos # (Auto) 0.1 (0.0-0.7) K/uL Baso # (Auto) 0.0 (0.0-0.2) K/uL Neutrophils % (Manual) (50-75) % Lymphocytes % (Manual) (20-40) % Monocytes % (Manual) (0-10) % Platelet Estimate (NORMAL) Hypochromasia (manual) Poikilocytosis (manual Anisocytosis (manual) Target Cells Ovalocytes [place] Cells PT (9.7-12.2) SECONDS INR APTT (21-34) SECONDS Sodium 137 (132-148) mmol/L Potassium 3.9 (3.6-5.2) mmol/L Chloride 98 (98-107) mmol/L Carbon Dioxide 29 (22-30) mmol/L Anion Gap 13 (10-20) BUN 18 (9-20) mg/dL Creatinine 0.8 (0.8-1.5) mg/dL Est GFR ( Amer) > 60 Est GFR (Non-Af Amer) > 60 POC Glucose (mg/dL) (65-110) mg/dL Random Glucose 141 H D (75-110) mg/dL Hemoglobin A1c (4.2-6.5) % Calcium 8.6 (8.6-10.4) mg/dl Phosphorus 3.7 (2.5-4.5) mg/dL Magnesium 1.9 (1.6-2.3) mg/dL Iron 23 L (49-181) ug/dL TIBC 416 (250-450) ug/dL % Saturation 6 L (20-55) Total Bilirubin 0.8 (0.2-1.3) mg/dL AST 193 H D (17-59) U/L ALT 32 (21-72) U/L Alkaline Phosphatase 71 (38-126) U/L Troponin I 41.4000 H* (0.00-0.120) ng/mL Total Protein 6.8 (6.3-8.3) g/dL Albumin 4.1 (3.5-5.0) g/dL Globulin 2.7 (2.2-3.9) gm/dL Albumin/Globulin Ratio 1.5 (1.0-2.1) Blood Type Antibody Screen 07/12/18 07/12/18 07/12/18 Range/Units 14:31 14:31 14:31 WBC (4.8-10.8) K/uL RBC (4.40-5.90) Mil/uL Hgb (12.0-18.0) g/dL Hct (35.0-51.0) % MCV (80.0-94.0) fL MCH (27.0-31.0) pg MCHC (33.0-37.0) g/dL RDW (11.5-14.5) % Plt Count (130-400) K/uL MPV (7.2-11.7) fL Neut % (Auto) (50.0-75.0) % Lymph % (Auto) (20.0-40.0) % [place] % (Auto) (0.0-10.0) % Eos % (Auto) (0.0-4.0) % Baso % (Auto) (0.0-2.0) % Neut # (Auto) (1.8-7.0) K/uL Lymph # (Auto) (1.0-4.3) K/uL [place] # (Auto) (0.0-0.8) K/uL Eos # (Auto) (0.0-0.7) K/uL Baso # (Auto) (0.0-0.2) K/uL Neutrophils % (Manual) (50-75) % Lymphocytes % (Manual) (20-40) % Monocytes % (Manual) (0-10) % Platelet Estimate (NORMAL) Hypochromasia (manual) Poikilocytosis (manual Anisocytosis (manual) Target Cells Ovalocytes [place] Cells PT 12.4 H (9.7-12.2) SECONDS INR 1.1 APTT 28.6 (21-34) SECONDS Sodium 140 (132-148) mmol/L Potassium 5.2 (3.6-5.2) mmol/L Chloride 97 L (98-107) mmol/L Carbon Dioxide 23 (22-30) mmol/L Anion Gap 25 H (10-20) BUN 21 H (9-20) mg/dL Creatinine 1.0 (0.8-1.5) mg/dL Est GFR ( Amer) > 60 Est GFR (Non-Af Amer) > 60 POC Glucose (mg/dL) (65-110) mg/dL Random Glucose 289 H (75-110) mg/dL Hemoglobin A1c (4.2-6.5) % Calcium 9.0 (8.6-10.4) mg/dl Phosphorus (2.5-4.5) mg/dL Magnesium (1.6-2.3) mg/dL Iron (49-181) ug/dL TIBC (250-450) ug/dL % Saturation (20-55) Total Bilirubin 0.9 (0.2-1.3) mg/dL AST 26 (17-59) U/L ALT 15 L (21-72) U/L Alkaline Phosphatase 91 (38-126) U/L Troponin I 0.1480 H* (0.00-0.120) ng/mL Total Protein 7.7 (6.3-8.3) g/dL Albumin 4.7 (3.5-5.0) g/dL Globulin 3.0 (2.2-3.9) gm/dL Albumin/Globulin Ratio 1.6 (1.0-2.1) Blood Type O POSITIVE Antibody Screen Negative 07/12/18 07/12/18 Range/Units 14:31 14:25 WBC 15.8 H (4.8-10.8) K/uL RBC 4.37 L (4.40-5.90) Mil/uL Hgb 8.7 L (12.0-18.0) g/dL Hct 29.2 L (35.0-51.0) % MCV 66.8 L (80.0-94.0) fL MCH 19.8 L (27.0-31.0) pg MCHC 29.7 L (33.0-37.0) g/dL RDW 21.2 H (11.5-14.5) % Plt Count 469 H (130-400) K/uL MPV 7.9 (7.2-11.7) fL Neut % (Auto) 85.9 H (50.0-75.0) % Lymph % (Auto) 8.9 L (20.0-40.0) % [place] % (Auto) 4.3 (0.0-10.0) % Eos % (Auto) 0.6 (0.0-4.0) % Baso % (Auto) 0.3 (0.0-2.0) % Neut # (Auto) 13.6 H (1.8-7.0) K/uL Lymph # (Auto) 1.4 (1.0-4.3) K/uL [place] # (Auto) 0.7 (0.0-0.8) K/uL Eos # (Auto) 0.1 (0.0-0.7) K/uL Baso # (Auto) 0.0 (0.0-0.2) K/uL Neutrophils % (Manual) 84 H (50-75) % Lymphocytes % (Manual) 12 L (20-40) % Monocytes % (Manual) 4 (0-10) % Platelet Estimate Slightly increased H (NORMAL) Hypochromasia (manual) Slight Poikilocytosis (manual Slight Anisocytosis (manual) Slight Target Cells Slight Ovalocytes Slight [place] Cells Slight PT (9.7-12.2) SECONDS INR APTT (21-34) SECONDS Sodium (132-148) mmol/L Potassium (3.6-5.2) mmol/L Chloride (98-107) mmol/L Carbon Dioxide (22-30) mmol/L Anion Gap (10-20) BUN (9-20) mg/dL Creatinine (0.8-1.5) mg/dL Est GFR ( Amer) Est GFR (Non-Af Amer) POC Glucose (mg/dL) 307 H (65-110) mg/dL Random Glucose (75-110) mg/dL Hemoglobin A1c (4.2-6.5) % Calcium (8.6-10.4) mg/dl Phosphorus (2.5-4.5) mg/dL Magnesium (1.6-2.3) mg/dL Iron (49-181) ug/dL TIBC (250-450) ug/dL % Saturation (20-55) Total Bilirubin (0.2-1.3) mg/dL AST (17-59) U/L ALT (21-72) U/L Alkaline Phosphatase (38-126) U/L Troponin I (0.00-0.120) ng/mL Total Protein (6.3-8.3) g/dL Albumin (3.5-5.0) g/dL Globulin (2.2-3.9) gm/dL Albumin/Globulin Ratio (1.0-2.1) Blood Type Antibody Screen Laboratory Results - last 24 hr 07/12/18 07/12/18 07/12/18 14:25 14:31 14:31 WBC 15.8 H RBC 4.37 L Hgb 8.7 L Hct 29.2 L MCV 66.8 L MCH 19.8 L MCHC 29.7 L RDW 21.2 H Plt Count 469 H MPV 7.9 Neut % (Auto) 85.9 H Lymph % (Auto) 8.9 L [place] % (Auto) 4.3 Eos % (Auto) 0.6 Baso % (Auto) 0.3 Neut # (Auto) 13.6 H Lymph # (Auto) 1.4 [place] # (Auto) 0.7 Eos # (Auto) 0.1 Baso # (Auto) 0.0 Neutrophils % (Manual) 84 H Lymphocytes % (Manual) 12 L Monocytes % (Manual) 4 Platelet Estimate Slightly increased H Hypochromasia (manual) Slight Poikilocytosis (manual Slight Anisocytosis (manual) Slight Target Cells Slight Ovalocytes Slight [place] Cells Slight PT 12.4 H INR 1.1 APTT 28.6 Sodium Potassium Chloride Carbon Dioxide Anion Gap BUN Creatinine Est GFR ( Amer) Est GFR (Non-Af Amer) POC Glucose (mg/dL) 307 H Random Glucose Hemoglobin A1c Calcium Phosphorus Magnesium Iron TIBC % Saturation Total Bilirubin AST ALT Alkaline Phosphatase Troponin I Total Protein Albumin Globulin Albumin/Globulin Ratio Blood Type Antibody Screen 07/12/18 07/12/18 07/13/18 14:31 14:31 00:45 WBC RBC Hgb Hct MCV MCH MCHC RDW Plt Count MPV Neut % (Auto) Lymph % (Auto) [place] % (Auto) Eos % (Auto) Baso % (Auto) Neut # (Auto) Lymph # (Auto) [place] # (Auto) Eos # (Auto) Baso # (Auto) Neutrophils % (Manual) Lymphocytes % (Manual) Monocytes % (Manual) Platelet Estimate Hypochromasia (manual) Poikilocytosis (manual Anisocytosis (manual) Target Cells Ovalocytes [place] Cells PT INR APTT Sodium 140 Potassium 5.2 Chloride 97 L Carbon Dioxide 23 Anion Gap 25 H BUN 21 H Creatinine 1.0 Est GFR ( Amer) > 60 Est GFR (Non-Af Amer) > 60 POC Glucose (mg/dL) Random Glucose 289 H Hemoglobin A1c Calcium 9.0 Phosphorus Magnesium Iron 23 L TIBC 416 % Saturation 6 L Total Bilirubin 0.9 AST 26 ALT 15 L Alkaline Phosphatase 91 Troponin I 0.1480 H* Total Protein 7.7 Albumin 4.7 Globulin 3.0 Albumin/Globulin Ratio 1.6 Blood Type O POSITIVE Antibody Screen Negative 07/13/18 07/13/18 07/13/18 00:45 00:45 00:45 WBC 11.0 H RBC 3.86 L Hgb 7.6 L Hct 25.2 L MCV 65.3 L MCH 19.8 L MCHC 30.3 L RDW 20.5 H Plt Count 384 MPV 8.8 Neut % (Auto) 79.5 H Lymph % (Auto) 12.7 L [place] % (Auto) 7.0 Eos % (Auto) 0.5 Baso % (Auto) 0.3 Neut # (Auto) 8.7 H Lymph # (Auto) 1.4 [place] # (Auto) 0.8 Eos # (Auto) 0.1 Baso # (Auto) 0.0 Neutrophils % (Manual) Lymphocytes % (Manual) Monocytes % (Manual) Platelet Estimate Hypochromasia (manual) Poikilocytosis (manual Anisocytosis (manual) Target Cells Ovalocytes [place] Cells PT INR APTT Sodium 137 Potassium 3.9 Chloride 98 Carbon Dioxide 29 Anion Gap 13 BUN 18 Creatinine 0.8 Est GFR ( Amer) > 60 Est GFR (Non-Af Amer) > 60 POC Glucose (mg/dL) Random Glucose 141 H D Hemoglobin A1c 8.5 H Calcium 8.6 Phosphorus 3.7 Magnesium 1.9 Iron TIBC % Saturation Total Bilirubin 0.8 AST 193 H D ALT 32 Alkaline Phosphatase 71 Troponin I 41.4000 H* Total Protein 6.8 Albumin 4.1 Globulin 2.7 Albumin/Globulin Ratio 1.5 Blood Type Antibody Screen 07/13/18 07/13/18 07/13/18 00:45 06:16 06:16 WBC 10.6 RBC 3.88 L Hgb 7.8 L Hct 25.7 L MCV 66.2 L MCH 20.0 L MCHC 30.2 L RDW 20.6 H Plt Count 361 MPV 7.8 Neut % (Auto) 79.1 H Lymph % (Auto) 10.7 L [place] % (Auto) 7.7 Eos % (Auto) 1.9 Baso % (Auto) 0.6 Neut # (Auto) 8.4 H Lymph # (Auto) 1.1 [place] # (Auto) 0.8 Eos # (Auto) 0.2 Baso # (Auto) 0.1 Neutrophils % (Manual) Lymphocytes % (Manual) Monocytes % (Manual) Platelet Estimate Hypochromasia (manual) Poikilocytosis (manual Anisocytosis (manual) Target Cells Ovalocytes [place] Cells PT 12.6 H INR 1.2 APTT 29.0 Sodium 137 Potassium 4.0 Chloride 102 Carbon Dioxide 31 H Anion Gap 8 L BUN 17 Creatinine 0.8 Est GFR ( Amer) > 60 Est GFR (Non-Af Amer) > 60 POC Glucose (mg/dL) Random Glucose 97 D Hemoglobin A1c Calcium 8.4 L Phosphorus 3.4 Magnesium 1.8 Iron TIBC % Saturation Total Bilirubin 0.9 AST 213 H ALT 39 Alkaline Phosphatase 68 Troponin I Total Protein 6.7 Albumin 3.8 Globulin 2.9 Albumin/Globulin Ratio 1.3 Blood Type Antibody Screen 07/13/18 07/13/18 06:16 06:16 WBC RBC Hgb Hct MCV MCH MCHC RDW Plt Count MPV Neut % (Auto) Lymph % (Auto) [place] % (Auto) Eos % (Auto) Baso % (Auto) Neut # (Auto) Lymph # (Auto) [place] # (Auto) Eos # (Auto) Baso # (Auto) Neutrophils % (Manual) Lymphocytes % (Manual) Monocytes % (Manual) Platelet Estimate Hypochromasia (manual) Poikilocytosis (manual Anisocytosis (manual) Target Cells Ovalocytes [place] Cells PT INR APTT 50.7 H D Sodium Potassium Chloride Carbon Dioxide Anion Gap BUN Creatinine Est GFR ( Amer) Est GFR (Non-Af Amer) POC Glucose (mg/dL) Random Glucose Hemoglobin A1c Calcium Phosphorus Magnesium Iron TIBC % Saturation Total Bilirubin AST ALT Alkaline Phosphatase Troponin I 43.1000 H* Total Protein Albumin Globulin Albumin/Globulin Ratio Blood Type Antibody Screen Radiology Impressions: Radiology Impressions Chest X-Ray 07/12/18 14:20 IMPRESSION: No active pulmonary disease. EKG/Cardiology Studies: Cardiology / EKG Studies 07/12/18 14:10 ELECTROCARDIOGRAM Stat Comment: Mode Of Transportation: BED Reason For Exam: chest pain 07/12/18 14:20 ELECTROCARDIOGRAM Stat Comment: Mode Of Transportation: BED Reason For Exam: chest pain Fingerstick Blood Sugar Results: 110 Review of Systems - Review of Systems Review of Systems: 12 point ROS performed and negative other than what is stated in HPI Critical Care Progress Note - Nutrition Nutrition: Nutrition Category Date Time Status NPO Diet [DIET] Diets 07/13/18 Breakfast Active Assessment/Plan - Assessment and Plan (Free Text) Assessment: Patient is a 72yo M with PMH HTN, HLD, DM, hemorrhoids who presents to ED with chest pain and shortness of breath. EKG showing STEMI. Code-heart. Admitted to ICU. S/p cath 07/12, for rpt cath today. f/u results. Plan: Neuro: - AAOx3 - GSC 15 - no focal deficits Cardiovascular: - STEMI - CODE HEART - s/p cath, found to have 60% stenosis of distal LAD, 70% stenosis of proximal LAD, RCA not visualized - for rpt cath tooday - nitro drip @20 mcg/min - heparin drip @12 u/kg/min - ASA 81 - lopressor 25 BID - loading doses ASA and plavix given in ED Pulm: - CXR: no active disease - maintain SpO2 >92% GI: - no active issues Heme: - heparin drip @12 u/kg/min - ASA 81 - given loading doses ASA and plavix in ED - for rpt cath tomorrow at [facility] Renal: - no active disease Endo: - h/o DM - sliding scale medium dose - hypoglycemic protocol - accuchecks ACHS - maintain euglycemia PPX: GI: no indicated at this time DVT: heparin drip NPO for cath today Dispo: for cardiac cath today. f/u results. Case reviewed with Dr. Moncada <Drew Moncada - Last Filed: 07/13/18 17:31> CCU Subjective - Physician Review Critical Care Time Spent (in minutes): 45 CCU Objective - Vital Signs / Intake & Output Vital Signs (Last 4 hours): Vital Signs Temp Pulse Resp BP Pulse Ox 07/13/18 14:00 98.1 F 83 17 120/71 07/13/18 13:40 71 17 120/71 100 Intake and Output (Last 8hrs): Intake & Output 07/13/18 07/13/18 07/13/18 06:59 14:59 22:59 Intake Total 1084.9 1323.7 114.9 Output Total 900 550 Balance 184.9 773.7 114.9 Weight 163 lb 12.855 oz Intake: IV 70.5 79.5 Intake, IV Amount 894.4 919.2 114.9 Right Antecubital 41.0 48 6 Right Hand 800 800 100 Right Hand #2 53.4 71.2 8.9 Oral 120 0 0 Blood Product 325 Red Blood Cells Cpd As1 325 Lr Unit [id number] Output: Urine 900 550 Urine, Voided 900 550 Emesis 0 Other: # Voids Urine, Voided 0 0 0 # Bowel Movements 0 - Medications Active Medications: Active Medications Generic Name Dose Route Start Last Admin Trade Name Freq PRN Reason Stop Dose Admin Acetaminophen 650 mg 07/13/18 00:01 07/13/18 00:22 Tylenol 325mg Tab PO 650 mg Q6 PRN Administration pain Aspirin 81 mg 07/13/18 10:45 07/13/18 11:01 Aspirin Chewable PO 81 mg DAILY BASIM Administration Dextrose 0 ml 07/12/18 16:02 Dextrose 50% Inj IV STAT PRN Hypoglycemia Protocol Protocol Dextrose 0 gm 07/12/18 16:02 Glutose 15 PO ONCE PRN Hypoglycemia Protocol Protocol Glucagon 0 mg 07/12/18 16:02 Glucagen Diagnostic Kit IM STAT PRN Hypoglycemia Protocol Protocol Dextrose 1,000 mls @ 0 mls/hr 07/12/18 16:02 Dextrose 5% In Water 1000 Ml IV .Q0M PRN Hypoglycemia Protocol Protocol Per Protocol Nitroglycerin/Dextrose 50 mg in 250 mls @ 7.5 mls/hr 07/12/18 17:15 07/13/18 11:20 Nitroglycerin 50 Mg/250 Ml D5w IV 10 mcg/min .Q24H BASIM 3 mls/hr Titration Protocol 25 MCG/MIN Sodium Chloride 1,000 mls @ 100 mls/hr 07/12/18 17:45 07/13/18 03:29 Sodium Chloride 0.9% IV 100 mls/hr .Q10H BASIM Administration Heparin Sodium/Sodium Chloride 25,000 units in 250 mls @ 8.916 mls/hr 07/13/18 00:38 07/13/18 01:33 Heparin 18421 Units/250ml 1/2 Normal Saline IV 12 units/kg/hr .Q24H PRN 8.916 mls/hr ADJUST RATE PER PROTOCOL Administration Protocol 12 UNITS/KG/HR Insulin Human Regular 0 unit 07/12/18 16:30 07/13/18 11:41 Novolin R SC Not Given ACHS BASIM Protocol Metoprolol Tartrate 25 mg 07/13/18 10:15 07/13/18 10:16 Lopressor PO 25 mg BID BASIM Administration Rosuvastatin Calcium 10 mg 07/13/18 22:00 Crestor PO HS BASIM - Patient Studies Lab Studies: Lab Studies 07/13/18 07/13/18 07/13/18 Range/Units 16:29 16:29 12:23 WBC (4.8-10.8) K/uL RBC (4.40-5.90) Mil/uL Hgb (12.0-18.0) g/dL Hct (35.0-51.0) % MCV (80.0-94.0) fL MCH (27.0-31.0) pg MCHC (33.0-37.0) g/dL RDW (11.5-14.5) % Plt Count (130-400) K/uL MPV (7.2-11.7) fL Neut % (Auto) (50.0-75.0) % Lymph % (Auto) (20.0-40.0) % [place] % (Auto) (0.0-10.0) % Eos % (Auto) (0.0-4.0) % Baso % (Auto) (0.0-2.0) % Neut # (Auto) (1.8-7.0) K/uL Lymph # (Auto) (1.0-4.3) K/uL [place] # (Auto) (0.0-0.8) K/uL Eos # (Auto) (0.0-0.7) K/uL Baso # (Auto) (0.0-0.2) K/uL PT (9.7-12.2) SECONDS INR APTT 60.2 H D (21-34) SECONDS Puncture Site Line pCO2 58 H (35-45) mm/Hg pO2 558 H 49 (30-55) mm/Hg HCO3 21.7 (21-28) mmol/L ABG pH 7.22 L (7.35-7.45) ABG Total CO2 25.5 (22-28) mmol/L ABG O2 Saturation 98.9 H (95-98) % ABG Base Excess -4.2 L (-2.0-3.0) mmol/L ABG Hemoglobin 9.0 L (11.7-17.4) g/dL ABG Carboxyhemoglobin 0.7 (0.5-1.5) % POC ABG HHb (Measured) 1.1 (0.0-5.0) % ABG Methemoglobin 0.0 (0.0-3.0) % Rinku Test Na VBG pH 7.18 L* (7.32-7.43) VBG pCO2 65 H (40-60) mmHg VBG HCO3 20.2 mmol/L VBG Total CO2 26.3 (22-28) mmol/L VBG O2 Sat (Calc) 80.3 H (40-65) % VBG Base Excess -5.2 L (0.0-2.0) mmol/L VBG Potassium 3.8 (3.6-5.2) mmol/L A-a O2 Difference 83.0 mm/Hg Respiratory Index 0.1 Hgb O2 Saturation 98.2 H (95.0-98.0) % Glucose 237 H (75-110) mg/dl Lactate 2.6 H (0.7-2.1) mmol/L Vent Mode Bipap FiO2 100.0 % Inspiratory BiPAP 18 Expiratory BiPAP 5 Crit Value Called To Dr. tran Crit Value Called By Raghu lowe Crit Value Read Back Y Blood Gas Notified Time 1636 Sodium 138.0 (132-148) mmol/L Potassium (3.6-5.2) mmol/L Chloride 104.0 (98-107) mmol/L Carbon Dioxide (22-30) mmol/L Anion Gap (10-20) BUN (9-20) mg/dL Creatinine (0.8-1.5) mg/dL Est GFR ( Amer) Est GFR (Non-Af Amer) Random Glucose (75-110) mg/dL Hemoglobin A1c (4.2-6.5) % Calcium (8.6-10.4) mg/dl Phosphorus (2.5-4.5) mg/dL Magnesium (1.6-2.3) mg/dL Iron (49-181) ug/dL TIBC (250-450) ug/dL % Saturation (20-55) Total Bilirubin (0.2-1.3) mg/dL AST (17-59) U/L ALT (21-72) U/L Alkaline Phosphatase (38-126) U/L Troponin I (0.00-0.120) ng/mL Total Protein (6.3-8.3) g/dL Albumin (3.5-5.0) g/dL Globulin (2.2-3.9) gm/dL Albumin/Globulin Ratio (1.0-2.1) Venous Blood Potassium 3.8 (3.6-5.2) mmol/L Blood Type Antibody Screen 07/13/18 07/13/18 07/13/18 Range/Units 06:16 06:16 06:16 WBC (4.8-10.8) K/uL RBC (4.40-5.90) Mil/uL Hgb (12.0-18.0) g/dL Hct (35.0-51.0) % MCV (80.0-94.0) fL MCH (27.0-31.0) pg MCHC (33.0-37.0) g/dL RDW (11.5-14.5) % Plt Count (130-400) K/uL MPV (7.2-11.7) fL Neut % (Auto) (50.0-75.0) % Lymph % (Auto) (20.0-40.0) % [place] % (Auto) (0.0-10.0) % Eos % (Auto) (0.0-4.0) % Baso % (Auto) (0.0-2.0) % Neut # (Auto) (1.8-7.0) K/uL Lymph # (Auto) (1.0-4.3) K/uL [place] # (Auto) (0.0-0.8) K/uL Eos # (Auto) (0.0-0.7) K/uL Baso # (Auto) (0.0-0.2) K/uL PT (9.7-12.2) SECONDS INR APTT 50.7 H D (21-34) SECONDS Puncture Site pCO2 (35-45) mm/Hg pO2 (30-55) mm/Hg HCO3 (21-28) mmol/L ABG pH (7.35-7.45) ABG Total CO2 (22-28) mmol/L ABG O2 Saturation (95-98) % ABG Base Excess (-2.0-3.0) mmol/L ABG Hemoglobin (11.7-17.4) g/dL ABG Carboxyhemoglobin (0.5-1.5) % POC ABG HHb (Measured) (0.0-5.0) % ABG Methemoglobin (0.0-3.0) % Rinku Test VBG pH (7.32-7.43) VBG pCO2 (40-60) mmHg VBG HCO3 mmol/L VBG Total CO2 (22-28) mmol/L VBG O2 Sat (Calc) (40-65) % VBG Base Excess (0.0-2.0) mmol/L VBG Potassium (3.6-5.2) mmol/L A-a O2 Difference mm/Hg Respiratory Index Hgb O2 Saturation (95.0-98.0) % Glucose (75-110) mg/dl Lactate (0.7-2.1) mmol/L Vent Mode FiO2 % Inspiratory BiPAP Expiratory BiPAP Crit Value Called To Crit Value Called By Crit Value Read Back Blood Gas Notified Time Sodium 137 (132-148) mmol/L Potassium 4.0 (3.6-5.2) mmol/L Chloride 102 (98-107) mmol/L Carbon Dioxide 31 H (22-30) mmol/L Anion Gap 8 L (10-20) BUN 17 (9-20) mg/dL Creatinine 0.8 (0.8-1.5) mg/dL Est GFR ( Amer) > 60 Est GFR (Non-Af Amer) > 60 Random Glucose 97 D (75-110) mg/dL Hemoglobin A1c (4.2-6.5) % Calcium 8.4 L (8.6-10.4) mg/dl Phosphorus 3.4 (2.5-4.5) mg/dL Magnesium 1.8 (1.6-2.3) mg/dL Iron (49-181) ug/dL TIBC (250-450) ug/dL % Saturation (20-55) Total Bilirubin 0.9 (0.2-1.3) mg/dL AST 213 H (17-59) U/L ALT 39 (21-72) U/L Alkaline Phosphatase 68 (38-126) U/L Troponin I 43.1000 H* (0.00-0.120) ng/mL Total Protein 6.7 (6.3-8.3) g/dL Albumin 3.8 (3.5-5.0) g/dL Globulin 2.9 (2.2-3.9) gm/dL Albumin/Globulin Ratio 1.3 (1.0-2.1) Venous Blood Potassium (3.6-5.2) mmol/L Blood Type Antibody Screen 07/13/18 07/13/18 07/13/18 Range/Units 06:16 00:45 00:45 WBC 10.6 (4.8-10.8) K/uL RBC 3.88 L (4.40-5.90) Mil/uL Hgb 7.8 L (12.0-18.0) g/dL Hct 25.7 L (35.0-51.0) % MCV 66.2 L (80.0-94.0) fL MCH 20.0 L (27.0-31.0) pg MCHC 30.2 L (33.0-37.0) g/dL RDW 20.6 H (11.5-14.5) % Plt Count 361 (130-400) K/uL MPV 7.8 (7.2-11.7) fL Neut % (Auto) 79.1 H (50.0-75.0) % Lymph % (Auto) 10.7 L (20.0-40.0) % [place] % (Auto) 7.7 (0.0-10.0) % Eos % (Auto) 1.9 (0.0-4.0) % Baso % (Auto) 0.6 (0.0-2.0) % Neut # (Auto) 8.4 H (1.8-7.0) K/uL Lymph # (Auto) 1.1 (1.0-4.3) K/uL [place] # (Auto) 0.8 (0.0-0.8) K/uL Eos # (Auto) 0.2 (0.0-0.7) K/uL Baso # (Auto) 0.1 (0.0-0.2) K/uL PT 12.6 H (9.7-12.2) SECONDS INR 1.2 APTT 29.0 (21-34) SECONDS Puncture Site pCO2 (35-45) mm/Hg pO2 (30-55) mm/Hg HCO3 (21-28) mmol/L ABG pH (7.35-7.45) ABG Total CO2 (22-28) mmol/L ABG O2 Saturation (95-98) % ABG Base Excess (-2.0-3.0) mmol/L ABG Hemoglobin (11.7-17.4) g/dL ABG Carboxyhemoglobin (0.5-1.5) % POC ABG HHb (Measured) (0.0-5.0) % ABG Methemoglobin (0.0-3.0) % Rinku Test VBG pH (7.32-7.43) VBG pCO2 (40-60) mmHg VBG HCO3 mmol/L VBG Total CO2 (22-28) mmol/L VBG O2 Sat (Calc) (40-65) % VBG Base Excess (0.0-2.0) mmol/L VBG Potassium (3.6-5.2) mmol/L A-a O2 Difference mm/Hg Respiratory Index Hgb O2 Saturation (95.0-98.0) % Glucose (75-110) mg/dl Lactate (0.7-2.1) mmol/L Vent Mode FiO2 % Inspiratory BiPAP Expiratory BiPAP Crit Value Called To Crit Value Called By Crit Value Read Back Blood Gas Notified Time Sodium (132-148) mmol/L Potassium (3.6-5.2) mmol/L Chloride (98-107) mmol/L Carbon Dioxide (22-30) mmol/L Anion Gap (10-20) BUN (9-20) mg/dL Creatinine (0.8-1.5) mg/dL Est GFR ( Amer) Est GFR (Non-Af Amer) Random Glucose (75-110) mg/dL Hemoglobin A1c 8.5 H (4.2-6.5) % Calcium (8.6-10.4) mg/dl Phosphorus (2.5-4.5) mg/dL Magnesium (1.6-2.3) mg/dL Iron (49-181) ug/dL TIBC (250-450) ug/dL % Saturation (20-55) Total Bilirubin (0.2-1.3) mg/dL AST (17-59) U/L ALT (21-72) U/L Alkaline Phosphatase (38-126) U/L Troponin I (0.00-0.120) ng/mL Total Protein (6.3-8.3) g/dL Albumin (3.5-5.0) g/dL Globulin (2.2-3.9) gm/dL Albumin/Globulin Ratio (1.0-2.1) Venous Blood Potassium (3.6-5.2) mmol/L Blood Type Antibody Screen 07/13/18 07/13/18 07/13/18 Range/Units 00:45 00:45 00:45 WBC 11.0 H (4.8-10.8) K/uL RBC 3.86 L (4.40-5.90) Mil/uL Hgb 7.6 L (12.0-18.0) g/dL Hct 25.2 L (35.0-51.0) % MCV 65.3 L (80.0-94.0) fL MCH 19.8 L (27.0-31.0) pg MCHC 30.3 L (33.0-37.0) g/dL RDW 20.5 H (11.5-14.5) % Plt Count 384 (130-400) K/uL MPV 8.8 (7.2-11.7) fL Neut % (Auto) 79.5 H (50.0-75.0) % Lymph % (Auto) 12.7 L (20.0-40.0) % [place] % (Auto) 7.0 (0.0-10.0) % Eos % (Auto) 0.5 (0.0-4.0) % Baso % (Auto) 0.3 (0.0-2.0) % Neut # (Auto) 8.7 H (1.8-7.0) K/uL Lymph # (Auto) 1.4 (1.0-4.3) K/uL [place] # (Auto) 0.8 (0.0-0.8) K/uL Eos # (Auto) 0.1 (0.0-0.7) K/uL Baso # (Auto) 0.0 (0.0-0.2) K/uL PT (9.7-12.2) SECONDS INR APTT (21-34) SECONDS Puncture Site pCO2 (35-45) mm/Hg pO2 (30-55) mm/Hg HCO3 (21-28) mmol/L ABG pH (7.35-7.45) ABG Total CO2 (22-28) mmol/L ABG O2 Saturation (95-98) % ABG Base Excess (-2.0-3.0) mmol/L ABG Hemoglobin (11.7-17.4) g/dL ABG Carboxyhemoglobin (0.5-1.5) % POC ABG HHb (Measured) (0.0-5.0) % ABG Methemoglobin (0.0-3.0) % Rinku Test VBG pH (7.32-7.43) VBG pCO2 (40-60) mmHg VBG HCO3 mmol/L VBG Total CO2 (22-28) mmol/L VBG O2 Sat (Calc) (40-65) % VBG Base Excess (0.0-2.0) mmol/L VBG Potassium (3.6-5.2) mmol/L A-a O2 Difference mm/Hg Respiratory Index Hgb O2 Saturation (95.0-98.0) % Glucose (75-110) mg/dl Lactate (0.7-2.1) mmol/L Vent Mode FiO2 % Inspiratory BiPAP Expiratory BiPAP Crit Value Called To Crit Value Called By Crit Value Read Back Blood Gas Notified Time Sodium 137 (132-148) mmol/L Potassium 3.9 (3.6-5.2) mmol/L Chloride 98 (98-107) mmol/L Carbon Dioxide 29 (22-30) mmol/L Anion Gap 13 (10-20) BUN 18 (9-20) mg/dL Creatinine 0.8 (0.8-1.5) mg/dL Est GFR ( Amer) > 60 Est GFR (Non-Af Amer) > 60 Random Glucose 141 H D (75-110) mg/dL Hemoglobin A1c (4.2-6.5) % Calcium 8.6 (8.6-10.4) mg/dl Phosphorus 3.7 (2.5-4.5) mg/dL Magnesium 1.9 (1.6-2.3) mg/dL Iron 23 L (49-181) ug/dL TIBC 416 (250-450) ug/dL % Saturation 6 L (20-55) Total Bilirubin 0.8 (0.2-1.3) mg/dL AST 193 H D (17-59) U/L ALT 32 (21-72) U/L Alkaline Phosphatase 71 (38-126) U/L Troponin I 41.4000 H* (0.00-0.120) ng/mL Total Protein 6.8 (6.3-8.3) g/dL Albumin 4.1 (3.5-5.0) g/dL Globulin 2.7 (2.2-3.9) gm/dL Albumin/Globulin Ratio 1.5 (1.0-2.1) Venous Blood Potassium (3.6-5.2) mmol/L Blood Type Antibody Screen 07/12/18 Range/Units 14:31 WBC (4.8-10.8) K/uL RBC (4.40-5.90) Mil/uL Hgb (12.0-18.0) g/dL Hct (35.0-51.0) % MCV (80.0-94.0) fL MCH (27.0-31.0) pg MCHC (33.0-37.0) g/dL RDW (11.5-14.5) % Plt Count (130-400) K/uL MPV (7.2-11.7) fL Neut % (Auto) (50.0-75.0) % Lymph % (Auto) (20.0-40.0) % [place] % (Auto) (0.0-10.0) % Eos % (Auto) (0.0-4.0) % Baso % (Auto) (0.0-2.0) % Neut # (Auto) (1.8-7.0) K/uL Lymph # (Auto) (1.0-4.3) K/uL [place] # (Auto) (0.0-0.8) K/uL Eos # (Auto) (0.0-0.7) K/uL Baso # (Auto) (0.0-0.2) K/uL PT (9.7-12.2) SECONDS INR APTT (21-34) SECONDS Puncture Site pCO2 (35-45) mm/Hg pO2 (30-55) mm/Hg HCO3 (21-28) mmol/L ABG pH (7.35-7.45) ABG Total CO2 (22-28) mmol/L ABG O2 Saturation (95-98) % ABG Base Excess (-2.0-3.0) mmol/L ABG Hemoglobin (11.7-17.4) g/dL ABG Carboxyhemoglobin (0.5-1.5) % POC ABG HHb (Measured) (0.0-5.0) % ABG Methemoglobin (0.0-3.0) % Rinku Test VBG pH (7.32-7.43) VBG pCO2 (40-60) mmHg VBG HCO3 mmol/L VBG Total CO2 (22-28) mmol/L VBG O2 Sat (Calc) (40-65) % VBG Base Excess (0.0-2.0) mmol/L VBG Potassium (3.6-5.2) mmol/L A-a O2 Difference mm/Hg Respiratory Index Hgb O2 Saturation (95.0-98.0) % Glucose (75-110) mg/dl Lactate (0.7-2.1) mmol/L Vent Mode FiO2 % Inspiratory BiPAP Expiratory BiPAP Crit Value Called To Crit Value Called By Crit Value Read Back Blood Gas Notified Time Sodium (132-148) mmol/L Potassium (3.6-5.2) mmol/L Chloride (98-107) mmol/L Carbon Dioxide (22-30) mmol/L Anion Gap (10-20) BUN (9-20) mg/dL Creatinine (0.8-1.5) mg/dL Est GFR ( Amer) Est GFR (Non-Af Amer) Random Glucose (75-110) mg/dL Hemoglobin A1c (4.2-6.5) % Calcium (8.6-10.4) mg/dl Phosphorus (2.5-4.5) mg/dL Magnesium (1.6-2.3) mg/dL Iron (49-181) ug/dL TIBC (250-450) ug/dL % Saturation (20-55) Total Bilirubin (0.2-1.3) mg/dL AST (17-59) U/L ALT (21-72) U/L Alkaline Phosphatase (38-126) U/L Troponin I (0.00-0.120) ng/mL Total Protein (6.3-8.3) g/dL Albumin (3.5-5.0) g/dL Globulin (2.2-3.9) gm/dL Albumin/Globulin Ratio (1.0-2.1) Venous Blood Potassium (3.6-5.2) mmol/L Blood Type O POSITIVE Antibody Screen Negative Laboratory Results - last 24 hr 07/12/18 07/13/18 07/13/18 14:31 00:45 00:45 WBC 11.0 H RBC 3.86 L Hgb 7.6 L Hct 25.2 L MCV 65.3 L MCH 19.8 L MCHC 30.3 L RDW 20.5 H Plt Count 384 MPV 8.8 Neut % (Auto) 79.5 H Lymph % (Auto) 12.7 L [place] % (Auto) 7.0 Eos % (Auto) 0.5 Baso % (Auto) 0.3 Neut # (Auto) 8.7 H Lymph # (Auto) 1.4 [place] # (Auto) 0.8 Eos # (Auto) 0.1 Baso # (Auto) 0.0 PT INR APTT Puncture Site pCO2 pO2 HCO3 ABG pH ABG Total CO2 ABG O2 Saturation ABG Base Excess ABG Hemoglobin ABG Carboxyhemoglobin POC ABG HHb (Measured) ABG Methemoglobin Rinku Test VBG pH VBG pCO2 VBG HCO3 VBG Total CO2 VBG O2 Sat (Calc) VBG Base Excess VBG Potassium A-a O2 Difference Respiratory Index Hgb O2 Saturation Glucose Lactate Vent Mode FiO2 Inspiratory BiPAP Expiratory BiPAP Crit Value Called To Crit Value Called By Crit Value Read Back Blood Gas Notified Time Sodium Potassium Chloride Carbon Dioxide Anion Gap BUN Creatinine Est GFR ( Amer) Est GFR (Non-Af Amer) Random Glucose Hemoglobin A1c Calcium Phosphorus Magnesium Iron 23 L TIBC 416 % Saturation 6 L Total Bilirubin AST ALT Alkaline Phosphatase Troponin I Total Protein Albumin Globulin Albumin/Globulin Ratio Venous Blood Potassium Blood Type O POSITIVE Antibody Screen Negative 07/13/18 07/13/18 07/13/18 00:45 00:45 00:45 WBC RBC Hgb Hct MCV MCH MCHC RDW Plt Count MPV Neut % (Auto) Lymph % (Auto) [place] % (Auto) Eos % (Auto) Baso % (Auto) Neut # (Auto) Lymph # (Auto) [place] # (Auto) Eos # (Auto) Baso # (Auto) PT 12.6 H INR 1.2 APTT 29.0 Puncture Site pCO2 pO2 HCO3 ABG pH ABG Total CO2 ABG O2 Saturation ABG Base Excess ABG Hemoglobin ABG Carboxyhemoglobin POC ABG HHb (Measured) ABG Methemoglobin Rinku Test VBG pH VBG pCO2 VBG HCO3 VBG Total CO2 VBG O2 Sat (Calc) VBG Base Excess VBG Potassium A-a O2 Difference Respiratory Index Hgb O2 Saturation Glucose Lactate Vent Mode FiO2 Inspiratory BiPAP Expiratory BiPAP Crit Value Called To Crit Value Called By Crit Value Read Back Blood Gas Notified Time Sodium 137 Potassium 3.9 Chloride 98 Carbon Dioxide 29 Anion Gap 13 BUN 18 Creatinine 0.8 Est GFR ( Amer) > 60 Est GFR (Non-Af Amer) > 60 Random Glucose 141 H D Hemoglobin A1c 8.5 H Calcium 8.6 Phosphorus 3.7 Magnesium 1.9 Iron TIBC % Saturation Total Bilirubin 0.8 AST 193 H D ALT 32 Alkaline Phosphatase 71 Troponin I 41.4000 H* Total Protein 6.8 Albumin 4.1 Globulin 2.7 Albumin/Globulin Ratio 1.5 Venous Blood Potassium Blood Type Antibody Screen 07/13/18 07/13/18 07/13/18 06:16 06:16 06:16 WBC 10.6 RBC 3.88 L Hgb 7.8 L Hct 25.7 L MCV 66.2 L MCH 20.0 L MCHC 30.2 L RDW 20.6 H Plt Count 361 MPV 7.8 Neut % (Auto) 79.1 H Lymph % (Auto) 10.7 L [place] % (Auto) 7.7 Eos % (Auto) 1.9 Baso % (Auto) 0.6 Neut # (Auto) 8.4 H Lymph # (Auto) 1.1 [place] # (Auto) 0.8 Eos # (Auto) 0.2 Baso # (Auto) 0.1 PT INR APTT 50.7 H D Puncture Site pCO2 pO2 HCO3 ABG pH ABG Total CO2 ABG O2 Saturation ABG Base Excess ABG Hemoglobin ABG Carboxyhemoglobin POC ABG HHb (Measured) ABG Methemoglobin Rinku Test VBG pH VBG pCO2 VBG HCO3 VBG Total CO2 VBG O2 Sat (Calc) VBG Base Excess VBG Potassium A-a O2 Difference Respiratory Index Hgb O2 Saturation Glucose Lactate Vent Mode FiO2 Inspiratory BiPAP Expiratory BiPAP Crit Value Called To Crit Value Called By Crit Value Read Back Blood Gas Notified Time Sodium 137 Potassium 4.0 Chloride 102 Carbon Dioxide 31 H Anion Gap 8 L BUN 17 Creatinine 0.8 Est GFR ( Amer) > 60 Est GFR (Non-Af Amer) > 60 Random Glucose 97 D Hemoglobin A1c Calcium 8.4 L Phosphorus 3.4 Magnesium 1.8 Iron TIBC % Saturation Total Bilirubin 0.9 AST 213 H ALT 39 Alkaline Phosphatase 68 Troponin I Total Protein 6.7 Albumin 3.8 Globulin 2.9 Albumin/Globulin Ratio 1.3 Venous Blood Potassium Blood Type Antibody Screen 07/13/18 07/13/18 07/13/18 06:16 12:23 16:29 WBC RBC Hgb Hct MCV MCH MCHC RDW Plt Count MPV Neut % (Auto) Lymph % (Auto) [place] % (Auto) Eos % (Auto) Baso % (Auto) Neut # (Auto) Lymph # (Auto) [place] # (Auto) Eos # (Auto) Baso # (Auto) PT INR APTT 60.2 H D Puncture Site pCO2 pO2 49 HCO3 ABG pH ABG Total CO2 ABG O2 Saturation ABG Base Excess ABG Hemoglobin ABG Carboxyhemoglobin POC ABG HHb (Measured) ABG Methemoglobin Rinku Test VBG pH 7.18 L* VBG pCO2 65 H VBG HCO3 20.2 VBG Total CO2 26.3 VBG O2 Sat (Calc) 80.3 H VBG Base Excess -5.2 L VBG Potassium 3.8 A-a O2 Difference Respiratory Index Hgb O2 Saturation Glucose 237 H Lactate 2.6 H Vent Mode FiO2 Inspiratory BiPAP Expiratory BiPAP Crit Value Called To Dr. tran Crit Value Called By Raghu lowe Crit Value Read Back Y Blood Gas Notified Time 1636 Sodium 138.0 Potassium Chloride 104.0 Carbon Dioxide Anion Gap BUN Creatinine Est GFR ( Amer) Est GFR (Non-Af Amer) Random Glucose Hemoglobin A1c Calcium Phosphorus Magnesium Iron TIBC % Saturation Total Bilirubin AST ALT Alkaline Phosphatase Troponin I 43.1000 H* Total Protein Albumin Globulin Albumin/Globulin Ratio Venous Blood Potassium 3.8 Blood Type Antibody Screen 07/13/18 16:29 WBC RBC Hgb Hct MCV MCH MCHC RDW Plt Count MPV Neut % (Auto) Lymph % (Auto) [place] % (Auto) Eos % (Auto) Baso % (Auto) Neut # (Auto) Lymph # (Auto) [place] # (Auto) Eos # (Auto) Baso # (Auto) PT INR APTT Puncture Site Line pCO2 58 H pO2 558 H HCO3 21.7 ABG pH 7.22 L ABG Total CO2 25.5 ABG O2 Saturation 98.9 H ABG Base Excess -4.2 L ABG Hemoglobin 9.0 L ABG Carboxyhemoglobin 0.7 POC ABG HHb (Measured) 1.1 ABG Methemoglobin 0.0 Rinku Test Na VBG pH VBG pCO2 VBG HCO3 VBG Total CO2 VBG O2 Sat (Calc) VBG Base Excess VBG Potassium A-a O2 Difference 83.0 Respiratory Index 0.1 Hgb O2 Saturation 98.2 H Glucose Lactate Vent Mode Bipap FiO2 100.0 Inspiratory BiPAP 18 Expiratory BiPAP 5 Crit Value Called To Crit Value Called By Crit Value Read Back Blood Gas Notified Time Sodium Potassium Chloride Carbon Dioxide Anion Gap BUN Creatinine Est GFR ( Amer) Est GFR (Non-Af Amer) Random Glucose Hemoglobin A1c Calcium Phosphorus Magnesium Iron TIBC % Saturation Total Bilirubin AST ALT Alkaline Phosphatase Troponin I Total Protein Albumin Globulin Albumin/Globulin Ratio Venous Blood Potassium Blood Type Antibody Screen Critical Care Progress Note - Nutrition Nutrition: Nutrition Category Date Time Status NPO Diet [DIET] Diets 07/13/18 Breakfast Active Attending/Attestation - Attestation I have personally seen and examined this patient.: Yes I have fully participated in the care of the patient.: Yes I have reviewed all pertinent clinical information: Yes Notes (Text): 07/13/18 17:30 Patient seen and examined in the intensive care unit. STEMI - CODE HEART - s/p cath, found to have 60% stenosis of distal LAD, 70% stenosis of proximal LAD, RCA not visualized -Status post balloon pump placement -Possible transfer to [facility] -Continue heparin drip -BiPAP for shortness of breath and follow-up ABG -Nebulizer treatment and steroids
[2018-07-13] MEDS ORDERED: Albuterol 0.083% Inhal Sol (2.5 mg/3 mL) UD ONE ×2 (15:23→15:56)
[2018-07-13] MEDS ORDERED: Labetalol 5mg/ml (4ml) ONE (15:28)
[2018-07-13] MEDS ORDERED: Midazolam 5 MG/5 ML VIAL IVP ONE (15:43)
[2018-07-13] MEDS ORDERED: Midazolam 2 MG/2 ML VIAL ONE (15:48)
[2018-07-13] MEDS ORDERED: Albuterol-Ipratrop 3 mg / 0.5 (3 ml) UD INH ONE (15:51)
[2018-07-13] MEDS ORDERED: Albuterol-Ipratrop 3 mg / 0.5 (3 ml) UD INH STA (15:57)
[2018-07-13] MEDS ORDERED: Midazolam 2 MG/2 ML VIAL IVP ONE (16:00)
[2018-07-13 16:31] LABS: ARTERIAL BLOOD GAS HCO3 21.7 mmol/L (21-28); ARTERIAL BLOOD GAS O2 SAT 98.9 % (95-98); ARTERIAL BLOOD GAS PCO2 58 mm/Hg (35-45); ARTERIAL BLOOD GAS PH 7.22 (7.35-7.45); ARTERIAL BLOOD GAS PO2 558 mm/Hg (80-100); ARTERIAL BLOOD GAS TCO2 25.5 mmol/L (22-28)
[2018-07-13 16:36] LABS: VENOUS BLOOD GAS BASE EXCESS -5.2 mmol/L (0.0-2.0); VENOUS BLOOD GAS PCO2 65 mmHg (40-60); VENOUS BLOOD GAS PO2 49 mm/Hg (30-55); VENOUS BLOOD PH 7.18 (7.32-7.43)
[2018-07-13] MEDS: Nitroglycerin 50mg in D5W 50 MG/250 ML BOTTLE IV SCH (19:22)
[2018-07-13 20:52] LABS: BASO % 0.1 % (0.0-2.0); HEMOGLOBIN 9.1 g/dL (12.0-18.0); LYMPH # 0.5 K/uL (1.0-4.3); LYMPH % 3.9 % (20.0-40.0); MEAN CELL VOLUME 68.9 fL (80.0-94.0); MEAN CORPUSCULAR HEMOGLOBIN 21.6 pg (27.0-31.0); MEAN CORPUSCULAR HGB CONC 31.3 g/dL (33.0-37.0); MEAN PLATELET VOLUME 7.9 fL (7.2-11.7); MONO # 1.1 K/uL (0.0-0.8); MONO % 7.9 % (0.0-10.0); NEUT # 12.4 K/uL (1.8-7.0); NEUT % 88.1 % (50.0-75.0); NRBC % 0.2 % (0.0-2.0); PLATELET COUNT 319 K/uL (130-400); RBC 4.22 Mil/uL (4.40-5.90); RED CELL DISTRIBUTION WIDTH 23.1 % (11.5-14.5)
[2018-07-13 21:04] LABS: ALB/GLOB RATIO 1.3 (1.0-2.1); ALBUMIN 3.9 g/dL (3.5-5.0); ALT/SGPT 37 U/L (21-72); AST/SGOT 164 U/L (17-59); BLOOD UREA NITROGEN 16 mg/dL (9-20); GFR NON-AFRICAN AMERICAN > 60
[2018-07-13 21:54] LABS: LYMPHOCYTE 4 % (20-40); MONOCYTE 1 % (0-10); NEUTROPHIL 95 % (50-75); PLATELET ESTIMATE NORMAL (NORMAL); TOTAL CELLS COUNTED 100
[2018-07-13 21:55] LABS: ANISOCYTOSIS SLIGHT; BURR CELLS SLIGHT; HYPOCHROMIC MODERATE; MICROCYTOSIS SLIGHT; POIKILOCYTOSIS SLIGHT; TEARDROP CELLS SLIGHT
[2018-07-13 21:56] LABS: SCHISTOCYTES SLIGHT
[2018-07-14 01:54] LABS: BASO # 0.1 K/uL (0.0-0.2); BASO % 0.5 % (0.0-2.0); EOS % 0.3 % (0.0-4.0); HEMOGLOBIN 8.3 g/dL (12.0-18.0); MEAN CELL VOLUME 68.9 fL (80.0-94.0); MEAN CORPUSCULAR HEMOGLOBIN 22.1 pg (27.0-31.0); MEAN CORPUSCULAR HGB CONC 32.1 g/dL (33.0-37.0); MEAN PLATELET VOLUME 7.8 fL (7.2-11.7); MONO # 0.9 K/uL (0.0-0.8); MONO % 8.8 % (0.0-10.0); NEUT # 8.1 K/uL (1.8-7.0); NEUT % 80.4 % (50.0-75.0); RBC 3.75 Mil/uL (4.40-5.90); RED CELL DISTRIBUTION WIDTH 22.9 % (11.5-14.5); WHITE BLOOD COUNT 10.1 K/uL (4.8-10.8)
[2018-07-14] MEDS: Sodium Chloride 0.9% 1,000 ML IV SCH ×3 (03:29→18:07)
[2018-07-14] MEDS ORDERED: HYDROmorphone 1 mg/ml ISec IVP STA (03:54)
[2018-07-14 05:58] VITALS: O2SAT 100
--- NOTE | 2018-07-14 06:05 | CARDCATH ---
PROCEDURE DATE: 07/13/2018 INDICATIONS: Mr. Keating is a 72-year-old male who presented with inferior wall AL yesterday. During the procedure, there was some equipment malfunction, and fluoro C-arm was used for visualization of the left system . He was brought back for further evaluation and hemodynamic assessment. PROCEDURES PERFORMED: Complete heart catheterization with selective left coronary angiogram, left ventriculogram, right heart catheterization with hemodynamics and saturations. ANGIOGRAPHIC FINDINGS OF THE LEFT CORONARY SYSTEM: Left main is a large-sized vessel, bifurcates into LAD and circ. LAD has ostial 95% high-grade stenosis. Distal left main has a bifurcating calcific stenosis 80% into the left circumflex and the LAD system. Left circumflex is a medium-sized vessel, runs in the AV groove, gives off obtuse marginal branch. LAD gives off two medium-sized diagonal branches and three septal perforators. HEMODYNAMIC FINDINGS: Left ventricular end-diastolic pressure was 40 mmHg. Left ventricular ejection fraction 30 to 35. RIGHT HEART CATHETERIZATION FINDINGS: RA mean was 38, RV was 70/24, EDP of 18, PA pressure was 80/40 with a mean of 49. After the complete heart catheterization, intraaortic balloon pump was placed for hemodynamic stabilization. The patient was kept on BiPAP pre-procedure 49% consistent with therefore, the patient was put on intraaortic balloon pump for hemodynamic stabilization for low cardiac output state. The patient's blood pressure throughout the procedure with blood pressure Nitro. IMPRESSION: Pre-cardiogenic shock state with stable blood pressure and heart rate. Because of high risk and intraaortic balloon pump was placed for hemodynamic stabilization. RECOMMENDATIONS: The patient is to be transferred for CABG. Keep the patient on ICU. Optimize mediations for preload and afterload reduction. Abilio Archuleta MD
[2018-07-14 06:15] LABS: ABG ALLEN TEST POS; ARTERIAL BLOOD GAS HEMOGLOBIN 8.7 g/dL (11.7-17.4); ARTERIAL BLOOD GAS O2 SAT 98.2 % (95-98); ARTERIAL BLOOD GAS PCO2 48 mm/Hg (35-45); ARTERIAL BLOOD GAS PH 7.36 (7.35-7.45); ARTERIAL BLOOD GAS PO2 172 mm/Hg (80-100); ARTERIAL BLOOD GAS TCO2 28.6 mmol/L (22-28)
--- NOTE | 2018-07-14 07:14 | CP.PCM.PN ---
Subjective - Date & Time of Evaluation Date of Evaluation: 07/14/18 Time of Evaluation: 07:00 - Subjective Subjective: Keri Escamilla, PGY-[address] Archuleta: Pt was seen and examined this AM at bedside. Pt had no acute overnight events. Pt continues to be on Bipap this AM and states that he is breathing much better than he was yesterday and is tolerating the bipap well. Pt denies having any chest pain and denies any episodes of chest pain overnight. Pt otherwise states that he has no complaints at this time. Objective - Vital Signs/Intake and Output Vital Signs (last 24 hours): Temp Pulse Resp BP Pulse Ox 98.4 F 77 13 104/59 L 100 07/14/18 05:25 07/14/18 06:24 07/14/18 05:55 07/14/18 05:55 07/14/18 05:55 Intake and Output: 07/14/18 07/14/18 06:59 18:59 Intake Total 511.9 Balance 511.9 - Medications Medications: Current Medications Acetaminophen (Tylenol 325mg Tab) 650 mg PO Q6 PRN PRN Reason: pain Last Admin: 07/13/18 00:22 Dose: 650 mg Aspirin (Aspirin Chewable) 81 mg PO DAILY BASIM Last Admin: 07/13/18 11:01 Dose: 81 mg Dextrose (Dextrose 50% Inj) 0 ml IV STAT PRN; Protocol PRN Reason: Hypoglycemia Protocol Dextrose (Glutose 15) 0 gm PO ONCE PRN; Protocol PRN Reason: Hypoglycemia Protocol Glucagon (Glucagen Diagnostic Kit) 0 mg IM STAT PRN; Protocol PRN Reason: Hypoglycemia Protocol Dextrose (Dextrose 5% In Water 1000 Ml) 1,000 mls @ 0 mls/hr IV .Q0M PRN; Protocol PRN Reason: Hypoglycemia Protocol Nitroglycerin/Dextrose (Nitroglycerin 50 Mg/250 Ml D5w) 50 mg in 250 mls @ 7.5 mls/hr IV .Q24H BASIM; Protocol Last Titration: 07/13/18 21:30 Dose: 6 mcg/min, 1.8 mls/hr Sodium Chloride (Sodium Chloride 0.9%) 1,000 mls @ 100 mls/hr IV .Q10H BASIM Last Admin: 07/14/18 03:29 Dose: 100 mls/hr Heparin Sodium/Sodium Chloride (Heparin 75378 Units/250ml 1/2 Normal Saline) 25,000 units in 250 mls @ 8.916 mls/hr IV .Q24H PRN; Protocol PRN Reason: ADJUST RATE PER PROTOCOL Last Admin: 07/13/18 01:33 Dose: 12 units/kg/hr, 8.916 mls/hr Insulin Human Regular (Novolin R) 0 unit SC ACHS [facility]; Protocol Last Admin: 07/13/18 21:49 Dose: Not Given Metoprolol Tartrate (Lopressor) 25 mg PO BID [facility] Last Admin: 07/13/18 18:00 Dose: Not Given Pantoprazole Sodium (Protonix Inj) 40 mg IVP DAILY [facility] Rosuvastatin Calcium (Crestor) 10 mg PO HS [facility] Last Admin: 07/13/18 21:45 Dose: 10 mg - Labs Labs: 07/14/18 01:51 07/13/18 20:47 PT 12.6 SECONDS (9.7-12.2) H 07/13/18 00:45 INR 1.2 07/13/18 00:45 APTT 49.0 SECONDS (21-34) H D 07/13/18 20:47 - Constitutional Appears: Non-toxic, No Acute Distress - Head Exam Head Exam: ATRAUMATIC, NORMAL INSPECTION, NORMOCEPHALIC - Eye Exam Eye Exam: EOMI, Normal appearance, PERRL - Respiratory Exam Respiratory Exam: Clear to Ausculation Bilateral, NORMAL BREATHING PATTERN. absent: Accessory Muscle Use, Rales, Rhonchi, Wheezes Additional comments: on Bipap - Cardiovascular Exam Cardiovascular Exam: RRR, +S1, +S2. absent: Gallop, Rubs - GI/Abdominal Exam GI & Abdominal Exam: Soft, Normal Bowel Sounds. absent: Firm, Guarding, Rigid, Tenderness - Extremities Exam Extremities Exam: Normal Capillary Refill. absent: Calf Tenderness, Tenderness - Back Exam Back Exam: NORMAL INSPECTION. absent: CVA tenderness (L), CVA tenderness (R) - Neurological Exam Neurological Exam: Alert, Awake, Oriented x3 - Psychiatric Exam Psychiatric exam: Normal Affect, Normal Mood - Skin Skin Exam: Dry, Normal Color, Warm Assessment and Plan - Assessment and Plan (Free Text) Plan: STEMI: - Per EKG noted to be localized to inferior wall territory - PTCA attempted but lesion was not amenable to ballooning given calcified nature of lesion - Will re-eval L side of circulation today - Cont Asa, heparin drip, nitro drip, b-christina and statin - Pt had repeat cath yesterday to evaluate L side circulation, with significant blockage of LAD. - Will be transferred to [place] for CABG Hx of HTN: - Cont B christina Hx of HLD - Cont statin Dispo: Transfer to [place] for CABG
[2018-07-14] MEDS: Heparin25000 units/250ml 1/2NS 25,000 UNITS/250 ML BAG IV PRN (07:30)
[2018-07-14] MEDS: (Novolin R) Insulin Human Regular 100 units/ml vial SC SCH ×3 (07:52→17:07)
[2018-07-14 07:59] LABS: BASO % 0.4 % (0.0-2.0); EOS # 0.1 K/uL (0.0-0.7); EOS % 0.8 % (0.0-4.0); HEMOGLOBIN 9.4 g/dL (12.0-18.0); LYMPH # 0.9 K/uL (1.0-4.3); LYMPH % 9.6 % (20.0-40.0); MEAN CELL VOLUME 70.8 fL (80.0-94.0); MEAN CORPUSCULAR HEMOGLOBIN 22.8 pg (27.0-31.0); MEAN CORPUSCULAR HGB CONC 32.2 g/dL (33.0-37.0); MEAN PLATELET VOLUME 7.8 fL (7.2-11.7); MONO # 0.9 K/uL (0.0-0.8); MONO % 10.1 % (0.0-10.0); NEUT % 79.1 % (50.0-75.0); PLATELET COUNT 267 K/uL (130-400); RED CELL DISTRIBUTION WIDTH 23.6 % (11.5-14.5); WHITE BLOOD COUNT 8.9 K/uL (4.8-10.8)
[2018-07-14 08:21] LABS: ALB/GLOB RATIO 1.5 (1.0-2.1); ALBUMIN 3.7 g/dL (3.5-5.0); ALT/SGPT 39 U/L (21-72); AST/SGOT 127 U/L (17-59); BLOOD UREA NITROGEN 17 mg/dL (9-20); CALCIUM 7.6 mg/dl (8.6-10.4); GFR NON-AFRICAN AMERICAN > 60
[2018-07-14 08:58] LABS: EOSINOPHIL 1 % (0-4); LYMPHOCYTE 6 % (20-40); MONOCYTE 2 % (0-10); NEUTROPHIL 91 % (50-75); PLATELET ESTIMATE NORMAL (NORMAL); TOTAL CELLS COUNTED 100
[2018-07-14 08:59] LABS: ANISOCYTOSIS SLIGHT; HYPOCHROMIC MODERATE; OVALOCYTES MODERATE; POLYCHROMIC SLIGHT
--- NOTE | 2018-07-14 09:20 | RAD ---
Chest x-ray single frontal view HISTORY: Respiratory failure. Comparison: 07/12/2018 Findings: Mild venous congestion. Diffuse increased interstitial lung markings. Bilateral hilar prominence. Right paratracheal opacity may represent prominent vasculature. Tortuous ectatic aorta. Cardiomegaly. Degenerative changes in the spine. Blunted bilateral costophrenic angles. Impression: Mild venous congestion. Diffuse increased interstitial lung markings. Bilateral hilar prominence. Right paratracheal opacity may represent prominent vasculature. Tortuous ectatic aorta. Cardiomegaly. Degenerative changes in the spine. Blunted bilateral costophrenic angles.
[2018-07-14 09:25] LABS: B-TYPE NATRIURETIC PEPTIDE 1900 pg/mL (0-900)
--- NOTE | 2018-07-14 13:25 | CP.PCM.PN ---
Subjective - Date & Time of Evaluation Date of Evaluation: 07/14/18 Time of Evaluation: 09:00 - Subjective Subjective: Patient this morning was on ballon pump and family member present at bedside. Patient was awake and alert and orientated x 3. This morning denying chest pain or shortness of breath He is on heparin ggt as well as nitroglycerin ggt. The patient is pending going to [facility] for surgical intervention due to mutlivessel disease As previously mentioned this is a 72 yr old male who yesterday afternoon had a CODE Heart and found to have 60% stenosis of distal LAD, 70% stenosis of proximal LAD, RCA not visualized Objective - Vital Signs/Intake and Output Vital Signs (last 24 hours): Temp Pulse Resp BP Pulse Ox 98.1 F 70 18 123/62 100 07/14/18 08:00 07/14/18 12:17 07/14/18 12:17 07/14/18 12:17 07/14/18 12:17 Intake and Output: 07/14/18 07/14/18 06:59 18:59 Intake Total 2337.0 983.4 Output Total 800 500 Balance 1537.0 483.4 - Medications Medications: Current Medications Acetaminophen (Tylenol 325mg Tab) 650 mg PO Q6 PRN PRN Reason: pain Last Admin: 07/14/18 07:15 Dose: 650 mg Aspirin (Aspirin Chewable) 81 mg PO DAILY BASIM Last Admin: 07/14/18 09:39 Dose: 81 mg Dextrose (Dextrose 50% Inj) 0 ml IV STAT PRN; Protocol PRN Reason: Hypoglycemia Protocol Dextrose (Glutose 15) 0 gm PO ONCE PRN; Protocol PRN Reason: Hypoglycemia Protocol Glucagon (Glucagen Diagnostic Kit) 0 mg IM STAT PRN; Protocol PRN Reason: Hypoglycemia Protocol Dextrose (Dextrose 5% In Water 1000 Ml) 1,000 mls @ 0 mls/hr IV .Q0M PRN; Protocol PRN Reason: Hypoglycemia Protocol Nitroglycerin/Dextrose (Nitroglycerin 50 Mg/250 Ml D5w) 50 mg in 250 mls @ 7.5 mls/hr IV .Q24H BASIM; Protocol Last Titration: 07/14/18 11:30 Dose: 4 mcg/min, 1.2 mls/hr Heparin Sodium/Sodium Chloride (Heparin 05389 Units/250ml 1/2 Normal Saline) 25,000 units in 250 mls @ 8.916 mls/hr IV .Q24H PRN; Protocol PRN Reason: ADJUST RATE PER PROTOCOL Last Admin: 07/14/18 07:30 Dose: 12 units/kg/hr, 8.916 mls/hr Sodium Chloride (Sodium Chloride 0.9%) 1,000 mls @ 75 mls/hr IV .[id number] [facility] Last Admin: 07/14/18 09:55 Dose: 75 mls/hr Insulin Human Regular (Novolin R) 0 unit SC ACHS [facility]; Protocol Last Admin: 07/14/18 11:30 Dose: Not Given Metoprolol Tartrate (Lopressor) 25 mg PO BID [facility] Last Admin: 07/14/18 09:39 Dose: 25 mg Pantoprazole Sodium (Protonix Inj) 40 mg IVP DAILY [facility] Last Admin: 07/14/18 09:39 Dose: 40 mg Rosuvastatin Calcium (Crestor) 10 mg PO HS [facility] Last Admin: 07/13/18 21:45 Dose: 10 mg - Labs Labs: 07/14/18 07:53 07/14/18 07:53 PT 12.6 SECONDS (9.7-12.2) H 07/13/18 00:45 INR 1.2 07/13/18 00:45 APTT 60.5 SECONDS (21-34) H D 07/14/18 07:53 Assessment and Plan - Assessment and Plan (Free Text) Assessment: Patient is a 72yo M with PMH HTN, HLD, DM, hemorrhoids who presents to ED with chest pain and shortness of breath. EKG showing STEMI. Code-heart. Admitted to ICU. Plan: 1 STEMI 07/14: Currently ballon pump and Bipap. Remains on the nitroglycerin ggt and heparin ggt. Possible going to [place] for further intervention. 07/13: Patient found to have 60% stenosis of distal LAD, 70% stenosis of proximal LAD, RCA not visualized On nitroglycerin ggt On crestor, ASA, and heparin ggt at this time. Pending transfer to [facility] for further intervention Discussed with family and patient 2 Diabetes 07/13: Crestor, ASA. HgbA1C was 8.5 The patient is currently on a SSI 3 Anemia: 07/14: Continue to monitor, yesterday had two units of PRBCs given 4. HTN 07/14 Now on BB and recent systolic BPs in the 120s 07/13: Currently not on BB and ELIEL-I. On a rintroglycerin ggt
--- NOTE | 2018-07-14 14:39 | CP.CCUPN ---
<Bhavya Rivas - Last Filed: 07/14/18 14:50> CCU Subjective - Physician Review Subjective (Free Text): 07/14/18 14:36 Bhavya Rivas PGY1 Progress Note for Dr. Samy Finney Pt was examined at bedside this morning. He reports continuation of his chest pain and shortness of breath. CCU Objective - Vital Signs / Intake & Output Vital Signs (Last 4 hours): Vital Signs Pulse Resp BP Pulse Ox 07/14/18 13:37 71 07/14/18 13:16 71 14 132/66 100 07/14/18 13:00 72 07/14/18 12:46 70 18 113/60 100 07/14/18 12:17 70 18 123/62 100 07/14/18 12:00 72 07/14/18 11:46 70 14 133/61 100 07/14/18 11:16 65 14 127/57 L 100 07/14/18 11:02 80 07/14/18 11:00 64 07/14/18 10:46 67 16 117/52 L 100 Intake and Output (Last 8hrs): Intake & Output 07/13/18 07/14/18 07/14/18 22:59 06:59 14:59 Intake Total 876.2 1710.6 1068.5 Output Total 0 800 500 Balance 876.2 910.6 568.5 Weight 74.5 kg Intake: IV 35 265 Intake, IV Amount 721.2 1060.6 693.5 Left Antecubital 0 325 0 Left Hand 7.8 14.4 10.8 Right Antecubital 15 5.4 Right Femoral 45 120 15 Right Hand 600 530 600 Right Hand #2 53.4 71.2 62.3 Oral 120 0 110 Blood Product 650 Red Blood Cells Cpd As1 325 Lr Unit [id number] Output: Urine 800 500 Condom 800 Urine, Voided 500 Emesis 0 0 0 Other: # Voids Condom 0 0 0 Urine, Voided 0 1 # Bowel Movements 0 0 0 - Physical Exam Head: Positive for: Atraumatic, Normocephalic Pupils: Positive for: PERRL Extroacular Muscles: Positive for: EOMI Conjunctiva: Positive for: Normal Mouth: Positive for: Moist Mucous Membranes Neck: Positive for: Normal Range of Motion Respiratory/Chest: Positive for: Clear to Auscultation, Good Air Exchange. Negative for: Respiratory Distress, Accessory Muscle Use Cardiovascular: Positive for: Regular Rate and Rhythm, Normal S1, S2. Negative for: Murmurs, Rub, Gallop Abdomen: Positive for: Normal Bowel Sounds. Negative for: Tenderness, Distention, Peritoneal Signs Upper Extremity: Positive for: Normal Inspection, Normal ROM, NORMAL PULSES. Negative for: Cyanosis, Edema Lower Extremity: Positive for: Normal Inspection, Edema, NORMAL PULSES. Negative for: CALF TENDERNESS Neurological: Positive for: GCS=15, CN II-XII Intact, Speech Normal Skin: Positive for: Warm, Normal Color. Negative for: Dry, Rashes Psychiatric: Positive for: Alert, Oriented x 3, Normal Insight, Normal Concentration - Medications Active Medications: Active Medications Generic Name Dose Route Start Last Admin Trade Name Freq PRN Reason Stop Dose Admin Acetaminophen 650 mg 07/13/18 00:01 07/14/18 07:15 Tylenol 325mg Tab PO 650 mg Q6 PRN Administration pain Aspirin 81 mg 07/13/18 10:45 07/14/18 09:39 Aspirin Chewable PO 81 mg DAILY BASIM Administration Dextrose 0 ml 07/12/18 16:02 Dextrose 50% Inj IV STAT PRN Hypoglycemia Protocol Protocol Dextrose 0 gm 07/12/18 16:02 Glutose 15 PO ONCE PRN Hypoglycemia Protocol Protocol Glucagon 0 mg 07/12/18 16:02 Glucagen Diagnostic Kit IM STAT PRN Hypoglycemia Protocol Protocol Dextrose 1,000 mls @ 0 mls/hr 07/12/18 16:02 Dextrose 5% In Water 1000 Ml IV .Q0M PRN Hypoglycemia Protocol Protocol Per Protocol Nitroglycerin/Dextrose 50 mg in 250 mls @ 7.5 mls/hr 07/12/18 17:15 07/14/18 11:30 Nitroglycerin 50 Mg/250 Ml D5w IV 4 mcg/min .Q24H BASIM 1.2 mls/hr Titration Protocol 25 MCG/MIN Heparin Sodium/Sodium Chloride 25,000 units in 250 mls @ 8.916 mls/hr 07/13/18 00:38 07/14/18 07:30 Heparin 89101 Units/250ml 1/2 Normal Saline IV 12 units/kg/hr .Q24H PRN 8.916 mls/hr ADJUST RATE PER PROTOCOL Administration Protocol 12 UNITS/KG/HR Sodium Chloride 1,000 mls @ 75 mls/hr 07/14/18 10:00 07/14/18 09:55 Sodium Chloride 0.9% IV 75 mls/hr .[id number] BASIM Administration Insulin Human Regular 0 unit 07/12/18 16:30 07/14/18 11:30 Novolin R SC Not Given ACHS [facility] Protocol Metoprolol Tartrate 25 mg 07/13/18 10:15 07/14/18 09:39 Lopressor PO 25 mg BID BASIM Administration Pantoprazole Sodium 40 mg 07/14/18 10:00 07/14/18 09:39 Protonix Inj IVP 40 mg DAILY BASIM Administration Rosuvastatin Calcium 10 mg 07/13/18 22:00 07/13/18 21:45 Crestor PO 10 mg HS BASIM Administration - Patient Studies Lab Studies: Microbiology Studies 07/13/18 06:43 MRSA Culture (Admit) - Final Naris MRSA NOT DETECTED Lab Studies 07/14/18 07/14/18 07/14/18 Range/Units 07:53 07:53 07:53 WBC 8.9 (4.8-10.8) K/uL RBC 4.10 L (4.40-5.90) Mil/uL Hgb 9.4 L (12.0-18.0) g/dL Hct 29.0 L (35.0-51.0) % MCV 70.8 L (80.0-94.0) fL MCH 22.8 L (27.0-31.0) pg MCHC 32.2 L (33.0-37.0) g/dL RDW 23.6 H (11.5-14.5) % Plt Count 267 (130-400) K/uL MPV 7.8 (7.2-11.7) fL Neut % (Auto) 79.1 H (50.0-75.0) % Lymph % (Auto) 9.6 L (20.0-40.0) % [place] % (Auto) 10.1 H (0.0-10.0) % Eos % (Auto) 0.8 (0.0-4.0) % Baso % (Auto) 0.4 (0.0-2.0) % Neut # (Auto) 7.0 (1.8-7.0) K/uL Lymph # (Auto) 0.9 L (1.0-4.3) K/uL [place] # (Auto) 0.9 H (0.0-0.8) K/uL Eos # (Auto) 0.1 (0.0-0.7) K/uL Baso # (Auto) 0.0 (0.0-0.2) K/uL Neutrophils % (Manual) 91 H (50-75) % Lymphocytes % (Manual) 6 L (20-40) % Monocytes % (Manual) 2 (0-10) % Eosinophils % (Manual) 1 (0-4) % Platelet Estimate Normal (NORMAL) Polychromasia Slight Hypochromasia (manual) Moderate Poikilocytosis (manual Anisocytosis (manual) Slight Microcytosis (manual) Tear Drop Cells Ovalocytes Moderate [place] Cells Schistocytes APTT 60.5 H D (21-34) SECONDS Puncture Site pCO2 (35-45) mm/Hg pO2 (30-55) mm/Hg HCO3 (21-28) mmol/L ABG pH (7.35-7.45) ABG Total CO2 (22-28) mmol/L ABG O2 Saturation (95-98) % ABG Base Excess (-2.0-3.0) mmol/L ABG Hemoglobin (11.7-17.4) g/dL ABG Carboxyhemoglobin (0.5-1.5) % POC ABG HHb (Measured) (0.0-5.0) % ABG Methemoglobin (0.0-3.0) % Rinku Test VBG pH (7.32-7.43) VBG pCO2 (40-60) mmHg VBG HCO3 mmol/L VBG Total CO2 (22-28) mmol/L VBG O2 Sat (Calc) (40-65) % VBG Base Excess (0.0-2.0) mmol/L VBG Potassium (3.6-5.2) mmol/L A-a O2 Difference mm/Hg Respiratory Index Hgb O2 Saturation (95.0-98.0) % Sodium 140 (132-148) mmol/l Chloride 103 (98-107) mmol/L Glucose (75-110) mg/dl Lactate (0.7-2.1) mmol/L Vent Mode FiO2 % Inspiratory BiPAP Expiratory BiPAP Crit Value Called To Crit Value Called By Crit Value Read Back Blood Gas Notified Time Potassium 3.7 (3.6-5.2) mmol/L Carbon Dioxide 28 (22-30) mmol/L Anion Gap 13 (10-20) BUN 17 (9-20) mg/dL Creatinine 0.8 (0.8-1.5) mg/dL Est GFR ( Amer) > 60 Est GFR (Non-Af Amer) > 60 Random Glucose 108 D (75-110) mg/dL Calcium 7.6 L (8.6-10.4) mg/dl Phosphorus 3.1 (2.5-4.5) mg/dL Magnesium 1.8 (1.6-2.3) mg/dL Total Bilirubin 1.0 (0.2-1.3) mg/dL AST 127 H D (17-59) U/L ALT 39 (21-72) U/L Alkaline Phosphatase 67 (38-126) U/L Troponin I 23.5000 H* (0.00-0.120) ng/mL NT-Pro-B Natriuret Pep 1900 H (0-900) pg/mL Total Protein 6.2 L (6.3-8.3) g/dL Albumin 3.7 (3.5-5.0) g/dL Globulin 2.5 (2.2-3.9) gm/dL Albumin/Globulin Ratio 1.5 (1.0-2.1) Venous Blood Potassium (3.6-5.2) mmol/L Blood Type Antibody Screen 07/14/18 07/14/18 07/13/18 Range/Units 05:56 01:51 20:47 WBC 10.1 (4.8-10.8) K/uL RBC 3.75 L (4.40-5.90) Mil/uL Hgb 8.3 L (12.0-18.0) g/dL Hct 25.9 L (35.0-51.0) % MCV 68.9 L (80.0-94.0) fL MCH 22.1 L (27.0-31.0) pg MCHC 32.1 L (33.0-37.0) g/dL RDW 22.9 H (11.5-14.5) % Plt Count 280 (130-400) K/uL MPV 7.8 (7.2-11.7) fL Neut % (Auto) 80.4 H (50.0-75.0) % Lymph % (Auto) 10.0 L (20.0-40.0) % [place] % (Auto) 8.8 (0.0-10.0) % Eos % (Auto) 0.3 (0.0-4.0) % Baso % (Auto) 0.5 (0.0-2.0) % Neut # (Auto) 8.1 H (1.8-7.0) K/uL Lymph # (Auto) 1.0 (1.0-4.3) K/uL [place] # (Auto) 0.9 H (0.0-0.8) K/uL Eos # (Auto) 0.0 (0.0-0.7) K/uL Baso # (Auto) 0.1 (0.0-0.2) K/uL Neutrophils % (Manual) (50-75) % Lymphocytes % (Manual) (20-40) % Monocytes % (Manual) (0-10) % Eosinophils % (Manual) (0-4) % Platelet Estimate (NORMAL) Polychromasia Hypochromasia (manual) Poikilocytosis (manual Anisocytosis (manual) Microcytosis (manual) Tear Drop Cells Ovalocytes [place] Cells Schistocytes APTT (21-34) SECONDS Puncture Site R rad pCO2 48 H (35-45) mm/Hg pO2 172 H (30-55) mm/Hg HCO3 26.0 (21-28) mmol/L ABG pH 7.36 (7.35-7.45) ABG Total CO2 28.6 H (22-28) mmol/L ABG O2 Saturation 98.2 H (95-98) % ABG Base Excess 1.3 (-2.0-3.0) mmol/L ABG Hemoglobin 8.7 L (11.7-17.4) g/dL ABG Carboxyhemoglobin 0.5 (0.5-1.5) % POC ABG HHb (Measured) 1.8 (0.0-5.0) % ABG Methemoglobin 0.1 (0.0-3.0) % Rinku Test Pos VBG pH (7.32-7.43) VBG pCO2 (40-60) mmHg VBG HCO3 mmol/L VBG Total CO2 (22-28) mmol/L VBG O2 Sat (Calc) (40-65) % VBG Base Excess (0.0-2.0) mmol/L VBG Potassium (3.6-5.2) mmol/L A-a O2 Difference 125.0 mm/Hg Respiratory Index 0.7 Hgb O2 Saturation 97.6 (95.0-98.0) % Sodium 137 (132-148) mmol/l Chloride 99 (98-107) mmol/L Glucose (75-110) mg/dl Lactate (0.7-2.1) mmol/L Vent Mode Bipap FiO2 50.0 % Inspiratory BiPAP 18 Expiratory BiPAP 8 Crit Value Called To Crit Value Called By Crit Value Read Back Blood Gas Notified Time Potassium 4.3 (3.6-5.2) mmol/L Carbon Dioxide 31 H (22-30) mmol/L Anion Gap 11 (10-20) BUN 16 (9-20) mg/dL Creatinine 1.0 (0.8-1.5) mg/dL Est GFR ( Amer) > 60 Est GFR (Non-Af Amer) > 60 Random Glucose 171 H D (75-110) mg/dL Calcium 8.0 L (8.6-10.4) mg/dl Phosphorus 3.5 (2.5-4.5) mg/dL Magnesium 1.9 (1.6-2.3) mg/dL Total Bilirubin 1.0 (0.2-1.3) mg/dL AST 164 H D (17-59) U/L ALT 37 (21-72) U/L Alkaline Phosphatase 72 (38-126) U/L Troponin I (0.00-0.120) ng/mL NT-Pro-B Natriuret Pep (0-900) pg/mL Total Protein 6.9 (6.3-8.3) g/dL Albumin 3.9 (3.5-5.0) g/dL Globulin 3.0 (2.2-3.9) gm/dL Albumin/Globulin Ratio 1.3 (1.0-2.1) Venous Blood Potassium (3.6-5.2) mmol/L Blood Type Antibody Screen 05/07/13/18 07/13/18 Range/Units 20:47 20:47 16:29 WBC 14.0 H (4.8-10.8) K/uL RBC 4.22 L (4.40-5.90) Mil/uL Hgb 9.1 L (12.0-18.0) g/dL Hct 29.0 L (35.0-51.0) % MCV 68.9 L D (80.0-94.0) fL MCH 21.6 L (27.0-31.0) pg MCHC 31.3 L (33.0-37.0) g/dL RDW 23.1 H (11.5-14.5) % Plt Count 319 (130-400) K/uL MPV 7.9 (7.2-11.7) fL Neut % (Auto) 88.1 H (50.0-75.0) % Lymph % (Auto) 3.9 L (20.0-40.0) % [place] % (Auto) 7.9 (0.0-10.0) % Eos % (Auto) 0.0 (0.0-4.0) % Baso % (Auto) 0.1 (0.0-2.0) % Neut # (Auto) 12.4 H (1.8-7.0) K/uL Lymph # (Auto) 0.5 L (1.0-4.3) K/uL [place] # (Auto) 1.1 H (0.0-0.8) K/uL Eos # (Auto) 0.0 (0.0-0.7) K/uL Baso # (Auto) 0.0 (0.0-0.2) K/uL Neutrophils % (Manual) 95 H (50-75) % Lymphocytes % (Manual) 4 L (20-40) % Monocytes % (Manual) 1 (0-10) % Eosinophils % (Manual) (0-4) % Platelet Estimate Normal (NORMAL) Polychromasia Hypochromasia (manual) Moderate Poikilocytosis (manual Slight Anisocytosis (manual) Slight Microcytosis (manual) Slight Tear Drop Cells Slight Ovalocytes [place] Cells Slight Schistocytes Slight APTT 49.0 H D (21-34) SECONDS Puncture Site Line pCO2 58 H (35-45) mm/Hg pO2 558 H (30-55) mm/Hg HCO3 21.7 (21-28) mmol/L ABG pH 7.22 L (7.35-7.45) ABG Total CO2 25.5 (22-28) mmol/L ABG O2 Saturation 98.9 H (95-98) % ABG Base Excess -4.2 L (-2.0-3.0) mmol/L ABG Hemoglobin 9.0 L (11.7-17.4) g/dL ABG Carboxyhemoglobin 0.7 (0.5-1.5) % POC ABG HHb (Measured) 1.1 (0.0-5.0) % ABG Methemoglobin 0.0 (0.0-3.0) % Rinku Test Na VBG pH (7.32-7.43) VBG pCO2 (40-60) mmHg VBG HCO3 mmol/L VBG Total CO2 (22-28) mmol/L VBG O2 Sat (Calc) (40-65) % VBG Base Excess (0.0-2.0) mmol/L VBG Potassium (3.6-5.2) mmol/L A-a O2 Difference 83.0 mm/Hg Respiratory Index 0.1 Hgb O2 Saturation 98.2 H (95.0-98.0) % Sodium (132-148) mmol/l Chloride (98-107) mmol/L Glucose (75-110) mg/dl Lactate (0.7-2.1) mmol/L Vent Mode Bipap FiO2 100.0 % Inspiratory BiPAP 18 Expiratory BiPAP 5 Crit Value Called To Crit Value Called By Crit Value Read Back Blood Gas Notified Time Potassium (3.6-5.2) mmol/L Carbon Dioxide (22-30) mmol/L Anion Gap (10-20) BUN (9-20) mg/dL Creatinine (0.8-1.5) mg/dL Est GFR ( Amer) Est GFR (Non-Af Amer) Random Glucose (75-110) mg/dL Calcium (8.6-10.4) mg/dl Phosphorus (2.5-4.5) mg/dL Magnesium (1.6-2.3) mg/dL Total Bilirubin (0.2-1.3) mg/dL AST (17-59) U/L ALT (21-72) U/L Alkaline Phosphatase (38-126) U/L Troponin I (0.00-0.120) ng/mL NT-Pro-B Natriuret Pep (0-900) pg/mL Total Protein (6.3-8.3) g/dL Albumin (3.5-5.0) g/dL Globulin (2.2-3.9) gm/dL Albumin/Globulin Ratio (1.0-2.1) Venous Blood Potassium (3.6-5.2) mmol/L Blood Type Antibody Screen 07/13/18 07/12/18 Range/Units 16:29 14:31 WBC (4.8-10.8) K/uL RBC (4.40-5.90) Mil/uL Hgb (12.0-18.0) g/dL Hct (35.0-51.0) % MCV (80.0-94.0) fL MCH (27.0-31.0) pg MCHC (33.0-37.0) g/dL RDW (11.5-14.5) % Plt Count (130-400) K/uL MPV (7.2-11.7) fL Neut % (Auto) (50.0-75.0) % Lymph % (Auto) (20.0-40.0) % [place] % (Auto) (0.0-10.0) % Eos % (Auto) (0.0-4.0) % Baso % (Auto) (0.0-2.0) % Neut # (Auto) (1.8-7.0) K/uL Lymph # (Auto) (1.0-4.3) K/uL [place] # (Auto) (0.0-0.8) K/uL Eos # (Auto) (0.0-0.7) K/uL Baso # (Auto) (0.0-0.2) K/uL Neutrophils % (Manual) (50-75) % Lymphocytes % (Manual) (20-40) % Monocytes % (Manual) (0-10) % Eosinophils % (Manual) (0-4) % Platelet Estimate (NORMAL) Polychromasia Hypochromasia (manual) Poikilocytosis (manual Anisocytosis (manual) Microcytosis (manual) Tear Drop Cells Ovalocytes [place] Cells Schistocytes APTT (21-34) SECONDS Puncture Site pCO2 (35-45) mm/Hg pO2 49 (30-55) mm/Hg HCO3 (21-28) mmol/L ABG pH (7.35-7.45) ABG Total CO2 (22-28) mmol/L ABG O2 Saturation (95-98) % ABG Base Excess (-2.0-3.0) mmol/L ABG Hemoglobin (11.7-17.4) g/dL ABG Carboxyhemoglobin (0.5-1.5) % POC ABG HHb (Measured) (0.0-5.0) % ABG Methemoglobin (0.0-3.0) % Rinku Test VBG pH 7.18 L* (7.32-7.43) VBG pCO2 65 H (40-60) mmHg VBG HCO3 20.2 mmol/L VBG Total CO2 26.3 (22-28) mmol/L VBG O2 Sat (Calc) 80.3 H (40-65) % VBG Base Excess -5.2 L (0.0-2.0) mmol/L VBG Potassium 3.8 (3.6-5.2) mmol/L A-a O2 Difference mm/Hg Respiratory Index Hgb O2 Saturation (95.0-98.0) % Sodium 138.0 (132-148) mmol/l Chloride 104.0 (98-107) mmol/L Glucose 237 H (75-110) mg/dl Lactate 2.6 H (0.7-2.1) mmol/L Vent Mode FiO2 % Inspiratory BiPAP Expiratory BiPAP Crit Value Called To Dr. tran Crit Value Called By Raghu lowe Crit Value Read Back Y Blood Gas Notified Time 1636 Potassium (3.6-5.2) mmol/L Carbon Dioxide (22-30) mmol/L Anion Gap (10-20) BUN (9-20) mg/dL Creatinine (0.8-1.5) mg/dL Est GFR ( Amer) Est GFR (Non-Af Amer) Random Glucose (75-110) mg/dL Calcium (8.6-10.4) mg/dl Phosphorus (2.5-4.5) mg/dL Magnesium (1.6-2.3) mg/dL Total Bilirubin (0.2-1.3) mg/dL AST (17-59) U/L ALT (21-72) U/L Alkaline Phosphatase (38-126) U/L Troponin I (0.00-0.120) ng/mL NT-Pro-B Natriuret Pep (0-900) pg/mL Total Protein (6.3-8.3) g/dL Albumin (3.5-5.0) g/dL Globulin (2.2-3.9) gm/dL Albumin/Globulin Ratio (1.0-2.1) Venous Blood Potassium 3.8 (3.6-5.2) mmol/L Blood Type O POSITIVE Antibody Screen Negative Laboratory Results - last 24 hr 07/12/18 07/13/18 07/13/18 14:31 16:29 16:29 WBC RBC Hgb Hct MCV MCH MCHC RDW Plt Count MPV Neut % (Auto) Lymph % (Auto) [place] % (Auto) Eos % (Auto) Baso % (Auto) Neut # (Auto) Lymph # (Auto) [place] # (Auto) Eos # (Auto) Baso # (Auto) Neutrophils % (Manual) Lymphocytes % (Manual) Monocytes % (Manual) Eosinophils % (Manual) Platelet Estimate Polychromasia Hypochromasia (manual) Poikilocytosis (manual Anisocytosis (manual) Microcytosis (manual) Tear Drop Cells Ovalocytes [place] Cells Schistocytes APTT Puncture Site Line pCO2 58 H pO2 49 558 H HCO3 21.7 ABG pH 7.22 L ABG Total CO2 25.5 ABG O2 Saturation 98.9 H ABG Base Excess -4.2 L ABG Hemoglobin 9.0 L ABG Carboxyhemoglobin 0.7 POC ABG HHb (Measured) 1.1 ABG Methemoglobin 0.0 Rinku Test Na VBG pH 7.18 L* VBG pCO2 65 H VBG HCO3 20.2 VBG Total CO2 26.3 VBG O2 Sat (Calc) 80.3 H VBG Base Excess -5.2 L VBG Potassium 3.8 A-a O2 Difference 83.0 Respiratory Index 0.1 Hgb O2 Saturation 98.2 H Sodium 138.0 Chloride 104.0 Glucose 237 H Lactate 2.6 H Vent Mode Bipap FiO2 100.0 Inspiratory BiPAP 18 Expiratory BiPAP 5 Crit Value Called To Dr. tran Crit Value Called By Raghu lowe Crit Value Read Back Y Blood Gas Notified Time 1636 Potassium Carbon Dioxide Anion Gap BUN Creatinine Est GFR ( Amer) Est GFR (Non-Af Amer) Random Glucose Calcium Phosphorus Magnesium Total Bilirubin AST ALT Alkaline Phosphatase Troponin I NT-Pro-B Natriuret Pep Total Protein Albumin Globulin Albumin/Globulin Ratio Venous Blood Potassium 3.8 Blood Type O POSITIVE Antibody Screen Negative 07/13/18 07/13/18 07/13/18 20:47 20:47 20:47 WBC 14.0 H RBC 4.22 L Hgb 9.1 L Hct 29.0 L MCV 68.9 L D MCH 21.6 L MCHC 31.3 L RDW 23.1 H Plt Count 319 MPV 7.9 Neut % (Auto) 88.1 H Lymph % (Auto) 3.9 L [place] % (Auto) 7.9 Eos % (Auto) 0.0 Baso % (Auto) 0.1 Neut # (Auto) 12.4 H Lymph # (Auto) 0.5 L [place] # (Auto) 1.1 H Eos # (Auto) 0.0 Baso # (Auto) 0.0 Neutrophils % (Manual) 95 H Lymphocytes % (Manual) 4 L Monocytes % (Manual) 1 Eosinophils % (Manual) Platelet Estimate Normal Polychromasia Hypochromasia (manual) Moderate Poikilocytosis (manual Slight Anisocytosis (manual) Slight Microcytosis (manual) Slight Tear Drop Cells Slight Ovalocytes [place] Cells Slight Schistocytes Slight APTT 49.0 H D Puncture Site pCO2 pO2 HCO3 ABG pH ABG Total CO2 ABG O2 Saturation ABG Base Excess ABG Hemoglobin ABG Carboxyhemoglobin POC ABG HHb (Measured) ABG Methemoglobin Rinku Test VBG pH VBG pCO2 VBG HCO3 VBG Total CO2 VBG O2 Sat (Calc) VBG Base Excess VBG Potassium A-a O2 Difference Respiratory Index Hgb O2 Saturation Sodium 137 Chloride 99 Glucose Lactate Vent Mode FiO2 Inspiratory BiPAP Expiratory BiPAP Crit Value Called To Crit Value Called By Crit Value Read Back Blood Gas Notified Time Potassium 4.3 Carbon Dioxide 31 H Anion Gap 11 BUN 16 Creatinine 1.0 Est GFR ( Amer) > 60 Est GFR (Non-Af Amer) > 60 Random Glucose 171 H D Calcium 8.0 L Phosphorus 3.5 Magnesium 1.9 Total Bilirubin 1.0 AST 164 H D ALT 37 Alkaline Phosphatase 72 Troponin I NT-Pro-B Natriuret Pep Total Protein 6.9 Albumin 3.9 Globulin 3.0 Albumin/Globulin Ratio 1.3 Venous Blood Potassium Blood Type Antibody Screen 07/14/18 07/14/18 07/14/18 01:51 05:56 07:53 WBC 10.1 8.9 RBC 3.75 L 4.10 L Hgb 8.3 L 9.4 L Hct 25.9 L 29.0 L MCV 68.9 L 70.8 L MCH 22.1 L 22.8 L MCHC 32.1 L 32.2 L RDW 22.9 H 23.6 H Plt Count 280 267 MPV 7.8 7.8 Neut % (Auto) 80.4 H 79.1 H Lymph % (Auto) 10.0 L 9.6 L [place] % (Auto) 8.8 10.1 H Eos % (Auto) 0.3 0.8 Baso % (Auto) 0.5 0.4 Neut # (Auto) 8.1 H 7.0 Lymph # (Auto) 1.0 0.9 L [place] # (Auto) 0.9 H 0.9 H Eos # (Auto) 0.0 0.1 Baso # (Auto) 0.1 0.0 Neutrophils % (Manual) 91 H Lymphocytes % (Manual) 6 L Monocytes % (Manual) 2 Eosinophils % (Manual) 1 Platelet Estimate Normal Polychromasia Slight Hypochromasia (manual) Moderate Poikilocytosis (manual Anisocytosis (manual) Slight Microcytosis (manual) Tear Drop Cells Ovalocytes Moderate [place] Cells Schistocytes APTT Puncture Site R rad pCO2 48 H pO2 172 H HCO3 26.0 ABG pH 7.36 ABG Total CO2 28.6 H ABG O2 Saturation 98.2 H ABG Base Excess 1.3 ABG Hemoglobin 8.7 L ABG Carboxyhemoglobin 0.5 POC ABG HHb (Measured) 1.8 ABG Methemoglobin 0.1 Rinku Test Pos VBG pH VBG pCO2 VBG HCO3 VBG Total CO2 VBG O2 Sat (Calc) VBG Base Excess VBG Potassium A-a O2 Difference 125.0 Respiratory Index 0.7 Hgb O2 Saturation 97.6 Sodium Chloride Glucose Lactate Vent Mode Bipap FiO2 50.0 Inspiratory BiPAP 18 Expiratory BiPAP 8 Crit Value Called To Crit Value Called By Crit Value Read Back Blood Gas Notified Time Potassium Carbon Dioxide Anion Gap BUN Creatinine Est GFR ( Amer) Est GFR (Non-Af Amer) Random Glucose Calcium Phosphorus Magnesium Total Bilirubin AST ALT Alkaline Phosphatase Troponin I NT-Pro-B Natriuret Pep Total Protein Albumin Globulin Albumin/Globulin Ratio Venous Blood Potassium Blood Type Antibody Screen 07/14/18 07/14/18 07:53 07:53 WBC RBC Hgb Hct MCV MCH MCHC RDW Plt Count MPV Neut % (Auto) Lymph % (Auto) [place] % (Auto) Eos % (Auto) Baso % (Auto) Neut # (Auto) Lymph # (Auto) [place] # (Auto) Eos # (Auto) Baso # (Auto) Neutrophils % (Manual) Lymphocytes % (Manual) Monocytes % (Manual) Eosinophils % (Manual) Platelet Estimate Polychromasia Hypochromasia (manual) Poikilocytosis (manual Anisocytosis (manual) Microcytosis (manual) Tear Drop Cells Ovalocytes [place] Cells Schistocytes APTT 60.5 H D Puncture Site pCO2 pO2 HCO3 ABG pH ABG Total CO2 ABG O2 Saturation ABG Base Excess ABG Hemoglobin ABG Carboxyhemoglobin POC ABG HHb (Measured) ABG Methemoglobin Rinku Test VBG pH VBG pCO2 VBG HCO3 VBG Total CO2 VBG O2 Sat (Calc) VBG Base Excess VBG Potassium A-a O2 Difference Respiratory Index Hgb O2 Saturation Sodium 140 Chloride 103 Glucose Lactate Vent Mode FiO2 Inspiratory BiPAP Expiratory BiPAP Crit Value Called To Crit Value Called By Crit Value Read Back Blood Gas Notified Time Potassium 3.7 Carbon Dioxide 28 Anion Gap 13 BUN 17 Creatinine 0.8 Est GFR ( Amer) > 60 Est GFR (Non-Af Amer) > 60 Random Glucose 108 D Calcium 7.6 L Phosphorus 3.1 Magnesium 1.8 Total Bilirubin 1.0 AST 127 H D ALT 39 Alkaline Phosphatase 67 Troponin I 23.5000 H* NT-Pro-B Natriuret Pep 1900 H Total Protein 6.2 L Albumin 3.7 Globulin 2.5 Albumin/Globulin Ratio 1.5 Venous Blood Potassium Blood Type Antibody Screen Radiology Impressions: Radiology Impressions Chest X-Ray 07/14/18 07:00 Impression: Mild venous congestion. Diffuse increased interstitial lung markings. Bilateral hilar prominence. Right paratracheal opacity may represent prominent vasculature. Tortuous ectatic aorta. Cardiomegaly. Degenerative changes in the spine. Blunted bilateral costophrenic angles. Fingerstick Blood Sugar Results: 99 Review of Systems - Review of Systems Review of Systems: 12 point ROS performed and negative other than what is stated in HPI Critical Care Progress Note - Nutrition Nutrition: Nutrition Category Date Time Status NPO Diet [DIET] Diets 07/13/18 Breakfast Active Assessment/Plan - Assessment and Plan (Free Text) Assessment: Patient is a 72yo M with PMH HTN, HLD, DM, hemorrhoids who presents to ED with chest pain and shortness of breath. EKG showing STEMI. Code-heart. Admitted to ICU. S/p cath 07/13. For transfer to [place] for CABG likely today. Plan: Neuro: - AAOx3 - GSC 15 - no focal deficits Cardiovascular: - STEMI - CODE HEART - s/p cath: LAD distal 95% stenosis. distal L main 80% stenosis. - balloon pump placement - nitro drip @20 mcg/min - heparin drip @12 u/kg/min - ASA 81 - lopressor 25 BID Pulm: - CXR: mild venous congestion. diffuse increased interstitial lung markings. b/l hilar prominence. - on bipap - maintain SpO2 >92% GI: - no active issues Heme: - heparin drip @12 u/kg/min - ASA 81 Renal: - no active disease Endo: - h/o DM - sliding scale medium dose - hypoglycemic protocol - accuchecks ACHS - maintain euglycemia PPX GI: no indicated at this time DVT: heparin drip NPO for possible CABG Dispo: S/p cath. For transfer to [place] for CABG likely today. Patient seen and case reviewed with Dr. Samy Finney <Susy Finney - Last Filed: 07/15/18 16:49> CCU Objective - Patient Studies Lab Studies: Lab Studies 07/14/18 07/14/18 07/14/18 Range/Units 16:10 11:15 07:22 POC Glucose (mg/dL) 109 99 101 (65-110) mg/dL 07/13/18 07/13/18 07/13/18 Range/Units 21:00 19:32 11:11 POC Glucose (mg/dL) 164 H 192 H 126 H (65-110) mg/dL 07/13/18 07/12/18 07/12/18 Range/Units 07:24 20:34 17:22 POC Glucose (mg/dL) 110 136 H 245 H (65-110) mg/dL Laboratory Results - last 24 hr 07/12/18 07/12/18 07/13/18 17:22 20:34 07:24 POC Glucose (mg/dL) 245 H 136 H 110 07/13/18 07/13/18 07/13/18 11:11 19:32 21:00 POC Glucose (mg/dL) 126 H 192 H 164 H 07/14/18 07/14/18 07/14/18 07:22 11:15 16:10 POC Glucose (mg/dL) 101 99 109 Critical Care Progress Note - Nutrition Nutrition: Nutrition Category Date Time Status NPO Diet [DIET] Diets 07/13/18 Breakfast Active Assessment/Plan - Assessment and Plan (Free Text) Plan: Patient seen and examined at bedside. Patient awake, alert, tolerating bi-pap and IABP -denies any chest pain -Augmented SBP 135 -remains hemodynamically stable -peniding transfer to [facility]. - Date & Time Date: 07/15/18 Time: 16:47
[2018-07-14 17:05] VITALS: TEMP 97.9
[2018-07-14] MEDS: Nitroglycerin 50mg in D5W 50 MG/250 ML BOTTLE IV SCH (18:04)
[2018-07-14 19:29] VITALS: BP 121/64; PULSE 70; RESP 16
--- NOTE | 2018-07-15 14:01 | CP.PCM.DIS ---
Provider - Provider Date of Admission: 07/12/18 14:45 Attending physician: James Tran DO Time Spent in preparation of Discharge (in minutes): 29 Hospital Course - Lab Results Lab Results: Micro Results 07/13/18 06:43 Naris MRSA Culture (Admit) - Final MRSA NOT DETECTED Most Recent Lab Values WBC 8.9 K/uL (4.8-10.8) 07/14/18 07:53 RBC 4.10 Mil/uL (4.40-5.90) L 07/14/18 07:53 Hgb 9.4 g/dL (12.0-18.0) L 07/14/18 07:53 Hct 29.0 % (35.0-51.0) L 07/14/18 07:53 MCV 70.8 fL (80.0-94.0) L 07/14/18 07:53 MCH 22.8 pg (27.0-31.0) L 07/14/18 07:53 MCHC 32.2 g/dL (33.0-37.0) L 07/14/18 07:53 RDW 23.6 % (11.5-14.5) H 07/14/18 07:53 Plt Count 267 K/uL (130-400) 07/14/18 07:53 MPV 7.8 fL (7.2-11.7) 07/14/18 07:53 Neut % (Auto) 79.1 % (50.0-75.0) H 07/14/18 07:53 Lymph % (Auto) 9.6 % (20.0-40.0) L 07/14/18 07:53 Catron % (Auto) 10.1 % (0.0-10.0) H 07/14/18 07:53 Eos % (Auto) 0.8 % (0.0-4.0) 07/14/18 07:53 Baso % (Auto) 0.4 % (0.0-2.0) 07/14/18 07:53 Neut # (Auto) 7.0 K/uL (1.8-7.0) 07/14/18 07:53 Lymph # (Auto) 0.9 K/uL (1.0-4.3) L 07/14/18 07:53 Catron # (Auto) 0.9 K/uL (0.0-0.8) H 07/14/18 07:53 Eos # (Auto) 0.1 K/uL (0.0-0.7) 07/14/18 07:53 Baso # (Auto) 0.0 K/uL (0.0-0.2) 07/14/18 07:53 Neutrophils % (Manual) 91 % (50-75) H 07/14/18 07:53 Lymphocytes % (Manual) 6 % (20-40) L 07/14/18 07:53 Monocytes % (Manual) 2 % (0-10) 07/14/18 07:53 Eosinophils % (Manual) 1 % (0-4) 07/14/18 07:53 Platelet Estimate Normal (NORMAL) 07/14/18 07:53 Polychromasia Slight 07/14/18 07:53 Hypochromasia (manual) Moderate 07/14/18 07:53 Poikilocytosis (manual Slight 07/13/18 20:47 Anisocytosis (manual) Slight 07/14/18 07:53 Microcytosis (manual) Slight 07/13/18 20:47 Target Cells Slight 07/12/18 14:31 Tear Drop Cells Slight 07/13/18 20:47 Ovalocytes Moderate 07/14/18 07:53 Dunia Cells Slight 07/13/18 20:47 Schistocytes Slight 07/13/18 20:47 PT 12.6 SECONDS (9.7-12.2) H 07/13/18 00:45 INR 1.2 07/13/18 00:45 APTT 60.5 SECONDS (21-34) H D 07/14/18 07:53 Puncture Site R rad 07/14/18 05:56 pCO2 48 mm/Hg (35-45) H 07/14/18 05:56 pO2 172 mm/Hg (80-100) H 07/14/18 05:56 HCO3 26.0 mmol/L (21-28) 07/14/18 05:56 ABG pH 7.36 (7.35-7.45) 07/14/18 05:56 ABG Total CO2 28.6 mmol/L (22-28) H 07/14/18 05:56 ABG O2 Saturation 98.2 % (95-98) H 07/14/18 05:56 ABG Base Excess 1.3 mmol/L (-2.0-3.0) 07/14/18 05:56 ABG Hemoglobin 8.7 g/dL (11.7-17.4) L 07/14/18 05:56 ABG Carboxyhemoglobin 0.5 % (0.5-1.5) 07/14/18 05:56 POC ABG HHb (Measured) 1.8 % (0.0-5.0) 07/14/18 05:56 ABG Methemoglobin 0.1 % (0.0-3.0) 07/14/18 05:56 Rinku Test Pos 07/14/18 05:56 VBG pH 7.18 (7.32-7.43) L* 07/13/18 16:29 VBG pCO2 65 mmHg (40-60) H 07/13/18 16:29 VBG HCO3 20.2 mmol/L 07/13/18 16:29 VBG Total CO2 26.3 mmol/L (22-28) 07/13/18 16:29 VBG O2 Sat (Calc) 80.3 % (40-65) H 07/13/18 16:29 VBG Base Excess -5.2 mmol/L (0.0-2.0) L 07/13/18 16:29 VBG Potassium 3.8 mmol/L (3.6-5.2) 07/13/18 16:29 A-a O2 Difference 125.0 mm/Hg 07/14/18 05:56 Respiratory Index 0.7 07/14/18 05:56 Hgb O2 Saturation 97.6 % (95.0-98.0) 07/14/18 05:56 Sodium 138.0 mmol/l (132-148) 07/13/18 16:29 Chloride 104.0 mmol/L (98-107) 07/13/18 16:29 Glucose 237 mg/dl (75-110) H 07/13/18 16:29 Lactate 2.6 mmol/L (0.7-2.1) H 07/13/18 16:29 Vent Mode Bipap 07/14/18 05:56 FiO2 50.0 % 07/14/18 05:56 Inspiratory BiPAP 18 07/14/18 05:56 Expiratory BiPAP 8 07/14/18 05:56 Crit Value Called To Dr. tran 07/13/18 16:29 Crit Value Called By Raghu lowe 07/13/18 16:29 Crit Value Read Back Y 07/13/18 16:29 Blood Gas Notified Time 1636 07/13/18 16:29 Sodium 140 mmol/L (132-148) 07/14/18 07:53 Potassium 3.7 mmol/L (3.6-5.2) 07/14/18 07:53 Chloride 103 mmol/L (98-107) 07/14/18 07:53 Carbon Dioxide 28 mmol/L (22-30) 07/14/18 07:53 Anion Gap 13 (10-20) 07/14/18 07:53 BUN 17 mg/dL (9-20) 07/14/18 07:53 Creatinine 0.8 mg/dL (0.8-1.5) 07/14/18 07:53 Est GFR ( Amer) > 60 07/14/18 07:53 Est GFR (Non-Af Amer) > 60 07/14/18 07:53 POC Glucose (mg/dL) 109 mg/dL (65-110) 07/14/18 16:10 Random Glucose 108 mg/dL (75-110) D 07/14/18 07:53 Hemoglobin A1c 8.5 % (4.2-6.5) H 07/13/18 00:45 Calcium 7.6 mg/dl (8.6-10.4) L 07/14/18 07:53 Phosphorus 3.1 mg/dL (2.5-4.5) 07/14/18 07:53 Magnesium 1.8 mg/dL (1.6-2.3) 07/14/18 07:53 Iron 23 ug/dL (49-181) L 07/13/18 00:45 TIBC 416 ug/dL (250-450) 07/13/18 00:45 % Saturation 6 (20-55) L 07/13/18 00:45 Total Bilirubin 1.0 mg/dL (0.2-1.3) 07/14/18 07:53 AST 127 U/L (17-59) H D 07/14/18 07:53 ALT 39 U/L (21-72) 07/14/18 07:53 Alkaline Phosphatase 67 U/L (38-126) 07/14/18 07:53 Troponin I 23.5000 ng/mL (0.00-0.120) H* 07/14/18 07:53 NT-Pro-B Natriuret Pep 1900 pg/mL (0-900) H 07/14/18 07:53 Total Protein 6.2 g/dL (6.3-8.3) L 07/14/18 07:53 Albumin 3.7 g/dL (3.5-5.0) 07/14/18 07:53 Globulin 2.5 gm/dL (2.2-3.9) 07/14/18 07:53 Albumin/Globulin Ratio 1.5 (1.0-2.1) 07/14/18 07:53 Venous Blood Potassium 3.8 mmol/L (3.6-5.2) 07/13/18 16:29 Blood Type O POSITIVE 07/12/18 14:31 Antibody Screen Negative 07/12/18 14:31 - Hospital Course Hospital Course: This is a 72 year old male who was transfer to [facility] on 07/14/2018 for further cardiac intervention. It is not clear when the patient will be returning to [facility]. The patient was admitted on 07/12 due to chest pain. 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 Because of his chest pain he required nitroglycerin ggt and was on continuous heparin ggt. There is a medical history of DM and also HTN. No smoking. While waiting for the transfer the patient was also found to have a low Hgb and required blood transfusion as well. Family members were always at bedside and we continually updated them While at [facility] he required Plavix, ASA, Heparin ggt, statin, BB and ACEI Discharge Exam - Head Exam Head Exam: ATRAUMATIC, NORMAL INSPECTION, NORMOCEPHALIC Discharge Plan - Follow Up Plan Condition: STABLE Disposition: Trans to Other Acute Care Hosp
== END 2018-07-14 21:25 | disposition short-term general hospital (02) | DRG 270 ==
LOC: C.ER 14:02 → EDBD 14:02 → C.9I 14:45 → C.ER 14:47
PROVIDERS: ADMIT Internal Medicine Interventional Cardiology; ATTEND Hospitalist
PROC: 4A023N7 Measurement of Cardiac Sampling and Pressure, Left Heart, Percutaneous Approach (ICD-10-PCS; principal; 2018-07-12)
PROC: B2111ZZ Fluoroscopy of Multiple Coronary Arteries using Low Osmolar Contrast (ICD-10-PCS; 2018-07-12)
PROC: 5A02210 Assistance with Cardiac Output using Balloon Pump, Continuous (ICD-10-PCS; 2018-07-13)
PROC: 4A023N8 Measurement of Cardiac Sampling and Pressure, Bilateral, Percutaneous Approach (ICD-10-PCS; 2018-07-13)
PROC: B2061ZZ Plain Radiography of Right and Left Heart using Low Osmolar Contrast (ICD-10-PCS; 2018-07-13)
PROC: B2011ZZ Plain Radiography of Multiple Coronary Arteries using Low Osmolar Contrast (ICD-10-PCS; 2018-07-13)
DX: I21.19 ST elevation (STEMI) myocardial infarction involving other coronary artery of inferior wall (principal); R57.0 Cardiogenic shock; E78.5 Hyperlipidemia, unspecified; I25.10 Atherosclerotic heart disease of native coronary artery without angina pectoris; I25.82 Chronic total occlusion of coronary artery; E11.69 Type 2 diabetes mellitus with other specified complication; I11.9 Hypertensive heart disease without heart failure; I77.819 Aortic ectasia, unspecified site; I51.7 Cardiomegaly; K64.9 Unspecified hemorrhoids